=== PATIENT | female | born 1945 | race Caucasian/White ===

== ENCOUNTER 2016-09-14 10:30 | Outpatient (CLI) | payer MEDICARE, OTHER | END 2016-09-14 10:31 | disposition home or self-care (01) | DX: E11.65 Type 2 diabetes mellitus with hyperglycemia (principal) ==

== ENCOUNTER 2016-09-27 14:47 | Outpatient (CLI) | payer MEDICARE, OTHER | END 2016-09-27 14:48 | disposition home or self-care (01) | DX: M85.859 Other specified disorders of bone density and structure, unspecified thigh (principal); Z78.0 Asymptomatic menopausal state ==

== ENCOUNTER 2016-10-20 10:27 | Outpatient (CLI) | payer MEDICARE, OTHER ==
--- NOTE | 2016-10-20 12:59 | XRAY Report ---
MODIFIED BARIUM SWALLOW: 10/20/2016 CLINICAL INDICATION: Dysphagia. FINDINGS: Various consistencies of barium were prepared and administered in conjunction with speech pathology. There was trace penetration with mixed consistency, which produced a prompt cough reaction . Other consistencies were unremarkable. Please also refer to full report from speech pathology for f urther findings. IMPRESSION: TRACE PENETRATION WITH MIXED CONSISTENCY. FLUOROSCOPY TIME: 57 SECONDS; 1 SPOT IMAGE OBTAINED (CINE FLUOROSCOPY RECORDED). JOB #: [id number] EXT JOB #:[id number]
== END 2016-10-20 10:28 | disposition home or self-care (01) ==
LOC: DI 10:27
PROVIDERS: ATTEND Surgery
DX: R13.10 Dysphagia, unspecified (principal)
CPT/HCPCS: 74230; 92611; G8996; G8997; G8998

== ENCOUNTER 2016-10-29 09:51 | Outpatient (CLI) | payer MEDICARE, OTHER | END 2016-10-29 09:52 | disposition home or self-care (01) | DX: E11.9 Type 2 diabetes mellitus without complications (principal); Z78.9 Other specified health status ==

== ENCOUNTER 2017-01-05 10:30 | Outpatient (CLI) | payer MEDICARE, OTHER | END 2017-01-05 10:31 | DX: Z79.01 Long term (current) use of anticoagulants (principal); E11.9 Type 2 diabetes mellitus without complications; Z79.4 Long term (current) use of insulin; I10 Essential (primary) hypertension; E78.5 Hyperlipidemia, unspecified; E55.9 Vitamin D deficiency, unspecified ==

== ENCOUNTER 2017-06-21 13:05 | Outpatient (CLI) | payer MEDICARE, OTHER | END 2017-06-21 13:06 | disposition home or self-care (01) | LOC: SC 13:05 | PROVIDERS: ATTEND Nurse Practitioner Family | DX: G47.33 Obstructive sleep apnea (adult) (pediatric) (principal) | CPT/HCPCS: 99214; G0463; 99212 ==

== ENCOUNTER 2017-08-24 08:00 | Outpatient (CLI) | payer MEDICARE, OTHER ==
[2017-08-24 19:40] LABS: CALCIUM 8.8 mg/dL (8.5-10.3); CREATININE 1.2 mg/dL (0.4-1.0); POTASSIUM 4.4 mmol/L (3.5-5.0)
[2017-08-24 19:44] LABS: HEMOGLOBIN A1C 0.97 g/dL
== END 2017-08-24 08:01 | disposition home or self-care (01) ==
LOC: LAB.WCP 08:00
PROVIDERS: ATTEND Family Medicine
DX: E11.9 Type 2 diabetes mellitus without complications (principal)
CPT/HCPCS: 36415; 80048; 83036

== ENCOUNTER 2017-11-15 08:00 | Outpatient (CLI) | payer MEDICARE, OTHER ==
[2017-11-15 12:47] LABS: BASOPHILS # (AUTO) 0.1 10^3/uL (0.0-0.1); BASOPHILS % (AUTO) 0.9 %; EOSINOPHILS # (AUTO) 0.4 10^3/uL (0.0-0.7); EOSINOPHILS % (AUTO) 4.2 %; HGB - HEMOGLOBIN 14.5 g/dL (12.0-16.0); LYMPHOCYTES % (AUTO) 34.2 %; MEAN CORPUSCULAR HEMOGLOBIN 31.5 pg (27.0-31.0); MEAN CORPUSCULAR HGB CONC 33.3 g/dL (32.0-36.0); MEAN CORPUSCULAR VOLUME 94.7 fL (81.0-99.0); MEAN PLATELET VOLUME 9.8 fL (7.9-10.8); MONOCYTES # (AUTO) 0.7 10^3/uL (0.0-1.0); MONOCYTES % (AUTO) 8.1 %; NEUTROPHILS # (AUTO) 4.6 10^3/uL (1.5-6.6); NEUTROPHILS % (AUTO) 52.6 %; PLT - PLATELET COUNT 286 10^3/uL (130-450); RED BLOOD COUNT 4.59 10^6/uL (4.20-5.40); RED CELL DISTRIBUTION WIDTH 14.4 % (12.0-15.0); WHITE BLOOD COUNT 8.7 x10^3/uL (4.8-10.8)
[2017-11-15 13:40] LABS: HB2 TOTAL 15.6 g/dL; HEMOGLOBIN A1C 1.02 g/dL; HEMOGLOBIN A1C % 8.1 % (4.6-6.2)
[2017-11-15 14:04] LABS: ALBUMIN 3.9 g/dL (3.2-5.5); ALBUMIN/GLOBULIN RATIO 1.3 (1.0-2.2); ALKALINE PHOSPHATASE 53 IU/L (42-121); ALT ALANINE AMINOTRANSFERASE 44 IU/L (10-60); AST ASPARTATE AMINOTRANSFERASE 47 IU/L (10-42); BILIRUBIN,TOTAL 0.8 mg/dL (0.2-1.0); BUN - BLOOD UREA NITROGEN 20 mg/dL (6-20); CALCIUM 9.9 mg/dL (8.5-10.3); CARBON DIOXIDE - CO2 24 mmol/L (21-32); CHLORIDE 101 mmol/L (101-111); CHOL/HDL RATIO 2.9 (<4.4); CHOLESTEROL 146 mg/dL; CREATININE 1.4 mg/dL (0.4-1.0); GFR - MDRD 37 (>89); GLUCOSE 191 mg/dL (70-100); HDL CHOLESTEROL 51 mg/dL; LDL CHOLESTEROL,CALCULATED 63 mg/dL; LDL/HDL RATIO 1.2 (<4.4); SODIUM 135 mmol/L (135-145); TOTAL PROTEIN 6.8 g/dL (6.7-8.2); VLDL CHOLESTEROL 32 mg/dL
== END 2017-11-15 08:01 | disposition home or self-care (01) ==
LOC: LAB.WCP 08:00
PROVIDERS: ATTEND Family Medicine
DX: E11.9 Type 2 diabetes mellitus without complications (principal)
CPT/HCPCS: 36415; 80053; 80061; 83036; 83721; 84443; 85025

== ENCOUNTER 2018-01-10 14:59 | Outpatient (CLI) | payer MEDICARE, OTHER ==
--- NOTE | 2018-01-11 13:36 | Mammography Report ---
DIGITAL SCREENING MAMMOGRAM: 01/10/2018 CLINICAL INDICATION: A 72-year-old with family history of breast cancer for screening. COMPARISON: 04/2016, 03/2015, 03/2014, 03/2013, 03/2011, 12/2009. TECHNIQUE: Routine CC and MLO projections were obtained of the breasts. FINDINGS: Parenchymal tissue within the breasts is predominantly fatty replaced. There are no dominant masses, suspicious microcalcifications, or secondary signs of malignancy. In comparison to the previous studies, there are no significant changes. IMPRESSION: NO MAMMOGRAPHIC EVIDENCE OF MALIGNANCY. NO SIGNIFICANT INTERVAL CHANGES. RECOMMENDATION: Screening mammography is recommended annually. BIRADS CATEGORY 1 - NEGATIVE. STANDARD QUALIFYING STATEMENTS: 1. This examination was reviewed with the aid of Computed-Aided Detection (CAD). 2. A negative or benign imaging report should not delay biopsy if clinically suspicious findings are present. Consider surgical consultation if warranted. More than 5% of cancers are not identified by imaging. 3. Dense breasts may obscure an underlying neoplasm. TD: 01/11/2018 13:35
== END 2018-01-10 15:00 | disposition home or self-care (01) ==
LOC: DI 14:59
PROVIDERS: ATTEND Family Medicine
DX: Z12.31 Encounter for screening mammogram for malignant neoplasm of breast (principal); Z80.3 Family history of malignant neoplasm of breast
CPT/HCPCS: 77067

== ENCOUNTER 2018-02-15 11:19 | Outpatient (CLI) | payer MEDICARE, OTHER ==
[2018-02-15 19:15] LABS: BASOPHILS # (AUTO) 0.1 10^3/uL (0.0-0.1); EOSINOPHILS # (AUTO) 0.4 10^3/uL (0.0-0.7); EOSINOPHILS % (AUTO) 5.5 %; HGB - HEMOGLOBIN 12.9 g/dL (12.0-16.0); LYMPHOCYTES # (AUTO) 2.2 10^3/uL (1.5-3.5); LYMPHOCYTES % (AUTO) 29.9 %; MEAN CORPUSCULAR HEMOGLOBIN 30.9 pg (27.0-31.0); MEAN CORPUSCULAR HGB CONC 32.2 g/dL (32.0-36.0); MEAN CORPUSCULAR VOLUME 95.7 fL (81.0-99.0); MEAN PLATELET VOLUME 10.3 fL (7.9-10.8); MONOCYTES # (AUTO) 0.6 10^3/uL (0.0-1.0); MONOCYTES % (AUTO) 7.7 %; NEUTROPHILS # (AUTO) 4.1 10^3/uL (1.5-6.6); NEUTROPHILS % (AUTO) 54.9 %; PLT - PLATELET COUNT 222 10^3/uL (130-450); RED BLOOD COUNT 4.17 10^6/uL (4.20-5.40); RED CELL DISTRIBUTION WIDTH 14.7 % (12.0-15.0); WHITE BLOOD COUNT 7.4 x10^3/uL (4.8-10.8)
[2018-02-15 19:40] LABS: ALBUMIN 3.4 g/dL (3.2-5.5); ALBUMIN/GLOBULIN RATIO 1.2 (1.0-2.2); BILIRUBIN,TOTAL 1.7 mg/dL (0.2-1.0); CALCIUM 8.9 mg/dL (8.5-10.3); CREATININE 1.1 mg/dL (0.4-1.0); TOTAL PROTEIN 6.3 g/dL (6.7-8.2)
[2018-02-15 19:48] LABS: HEMOGLOBIN A1C 1.04 g/dL; HEMOGLOBIN A1C % 8.9 % (4.6-6.2)
== END 2018-02-15 11:20 | disposition home or self-care (01) ==
LOC: LAB.WCP 11:19
PROVIDERS: ATTEND Family Medicine
DX: E11.65 Type 2 diabetes mellitus with hyperglycemia (principal)
CPT/HCPCS: 36415; 80053; 83036; 85025

== ENCOUNTER 2018-03-17 08:13 | Outpatient (CLI) | payer MEDICARE, OTHER ==
--- NOTE | 2018-03-17 09:59 | Ultrasound Report ---
Procedure Date: 03/17/2018 Accession Number: [id number] / [id number] Procedure: US - Abdomen Complete CPT Code: FULL RESULT: EXAM: Abdomen Complete DATE: 03/17/2018 9:25 AM CLINICAL HISTORY: LIVER FUNCTION TESTS, ABNORMAL COMPARISON: CT 06/12/2012 TECHNIQUE: Real-time scanning was performed with static images obtained. FINDINGS: Liver: The liver demonstrates increased echogenicity, compatible with fatty infiltration. No focal lesion is appreciated. The liver measures 19 cm. Main portal vein flow: Hepatopetal. Gallbladder: Surgically absent. Biliary System: Common bile duct measures 6 mm. No intrahepatic or extrahepatic ductal dilatation. Pancreas: Visualized portion is unremarkable. Kidneys: Right: 10.5 cm longitudinally. Normal. No contour-deforming mass, stones, or hydronephrosis. Left: 9.7 cm longitudinally. Normal. No contour-deforming mass, stones, or hydronephrosis. Tiny cortical cyst. Spleen: 12.3 cm. Normal in size and echotexture. Aorta and Inferior Vena Cava: Unremarkable. IMPRESSION: Changes of cholecystectomy. Fatty infiltration of the liver. No evidence of biliary obstruction. RADIA
== END 2018-03-17 08:14 | disposition home or self-care (01) ==
LOC: DI 08:13
PROVIDERS: ATTEND Family Medicine
DX: K76.0 Fatty (change of) liver, not elsewhere classified (principal); Z90.49 Acquired absence of other specified parts of digestive tract
CPT/HCPCS: 76700

== ENCOUNTER 2018-06-28 13:14 | Outpatient (CLI) | payer MEDICARE, OTHER | END 2018-06-28 13:15 | disposition home or self-care (01) | LOC: SC 13:14 | PROVIDERS: ATTEND Nurse Practitioner Family | DX: G47.33 Obstructive sleep apnea (adult) (pediatric) (principal) | CPT/HCPCS: 99214; G0463; 99212 ==

== ENCOUNTER 2018-06-29 11:50 | Outpatient (CLI) | payer MEDICARE, OTHER ==
[2018-06-29 18:43] LABS: BASOPHILS # (AUTO) 0.1 10^3/uL (0.0-0.1); BASOPHILS % (AUTO) 1.1 %; EOSINOPHILS # (AUTO) 0.3 10^3/uL (0.0-0.7); EOSINOPHILS % (AUTO) 4.3 %; HGB - HEMOGLOBIN 14.7 g/dL (12.0-16.0); LYMPHOCYTES # (AUTO) 3.2 10^3/uL (1.5-3.5); LYMPHOCYTES % (AUTO) 40.6 %; MEAN CORPUSCULAR HEMOGLOBIN 30.7 pg (27.0-31.0); MEAN CORPUSCULAR HGB CONC 32.2 g/dL (32.0-36.0); MEAN CORPUSCULAR VOLUME 95.5 fL (81.0-99.0); MEAN PLATELET VOLUME 9.4 fL (7.9-10.8); MONOCYTES # (AUTO) 0.5 10^3/uL (0.0-1.0); MONOCYTES % (AUTO) 6.5 %; NEUTROPHILS # (AUTO) 3.8 10^3/uL (1.5-6.6); NEUTROPHILS % (AUTO) 47.5 %; PLT - PLATELET COUNT 297 10^3/uL (130-450); RED BLOOD COUNT 4.78 10^6/uL (4.20-5.40); RED CELL DISTRIBUTION WIDTH 15.4 % (12.0-15.0)
[2018-06-29 19:00] LABS: HB2 TOTAL 15.5 g/dL; HEMOGLOBIN A1C 1.01 g/dL; HEMOGLOBIN A1C % 8.1 % (4.6-6.2)
[2018-06-29 19:04] LABS: ALBUMIN 3.7 g/dL (3.2-5.5); ALBUMIN/GLOBULIN RATIO 1.4 (1.0-2.2); ALKALINE PHOSPHATASE 67 IU/L (42-121); ALT ALANINE AMINOTRANSFERASE 43 IU/L (10-60); AST ASPARTATE AMINOTRANSFERASE 53 IU/L (10-42); BILIRUBIN,TOTAL 1.3 mg/dL (0.2-1.0); BUN - BLOOD UREA NITROGEN 22 mg/dL (6-20); CALCIUM 9.3 mg/dL (8.5-10.3); CARBON DIOXIDE - CO2 24 mmol/L (21-32); CHLORIDE 99 mmol/L (101-111); CHOL/HDL RATIO 2.9 (<4.4); CHOLESTEROL 150 mg/dL; CREATININE 1.3 mg/dL (0.4-1.0); GFR - MDRD 40 (>89); GLUCOSE 134 mg/dL (70-100); HDL CHOLESTEROL 52 mg/dL; LDL CHOLESTEROL,CALCULATED 67 mg/dL; LDL/HDL RATIO 1.3 (<4.4); SODIUM 136 mmol/L (135-145); TOTAL PROTEIN 6.4 g/dL (6.7-8.2); VLDL CHOLESTEROL 31 mg/dL
== END 2018-06-29 11:51 | disposition home or self-care (01) ==
LOC: LAB.WCP 11:50
PROVIDERS: ATTEND Family Medicine
DX: E11.65 Type 2 diabetes mellitus with hyperglycemia (principal)
CPT/HCPCS: 36415; 80053; 80061; 83036; 83721; 84443; 85025

== ENCOUNTER 2018-09-28 08:00 | Outpatient (CLI) | payer MEDICARE, OTHER ==
[2018-09-28 19:14] LABS: CALCIUM 9.1 mg/dL (8.5-10.3); CREATININE 1.2 mg/dL (0.4-1.0)
[2018-09-28 19:26] LABS: HB2 TOTAL 16.4 g/dL; HEMOGLOBIN A1C 1.12 g/dL; HEMOGLOBIN A1C % 8.4 % (4.6-6.2)
== END 2018-09-28 23:59 | disposition home or self-care (01) ==
LOC: LAB.WCP 08:00
PROVIDERS: ATTEND Family Medicine
DX: E11.9 Type 2 diabetes mellitus without complications (principal)
CPT/HCPCS: 36415; 80048; 83036

== ENCOUNTER 2018-10-14 16:44 | Outpatient (CLI) | payer MEDICARE, OTHER ==
--- NOTE | 2018-10-16 01:28 | Ultrasound Report ---
Reason: POSTMENOPAUSAL BLEEDING,DIABETES MELLITUS,TYPE II, Procedure Date: 10/14/2018 Accession Number: [id number] / [id number] Procedure: US - Ankle Brachial Index CPT Code: FULL RESULT: EXAM: BILATERAL ANKLE/BRACHIAL INDEX EXAM DATE: 10/14/2018 06:00 PM. CLINICAL HISTORY: POSTMENOPAUSAL BLEEDING,DIABETES MELLITUS,TYPE II. Neuropathy. COMPARISON: None. TECHNIQUE: A blood pressure cuff and pulse volume recording Doppler ultrasound was used to evaluate the arterial pressures in the arms and ankle. No images were acquired. FINDINGS: Systolic pressures: Right brachial 132/79, right ankle 136/69. Right ankle brachial index is 1.03, normal. Left ankle brachial index is 1.0, normal. Systolic pressures: Left brachial 133/62, left ankle 133/64 Right posterior tibial artery peak systolic velocity 32.8 cm/s. Right dorsalis pedis artery peak systolic velocity is 21.5 cm/s. Left posterior tibial artery peak systolic velocity 27.7 cm/s. Left dorsalis pedis artery peak systolic velocity is 18.5 cm/s. IMPRESSION: 1. Right ankle/brachial index: 1.03, normal. 2. Left ankle/brachial index: 1, normal. ANKLE/BRACHIAL INDEX REFERENCE STANDARDS 1.0-1.4: Normal 0.90-0.99: Borderline < 0.9: Abnormal RADIA
--- NOTE | 2018-10-16 01:36 | Ultrasound Report ---
Reason: POSTMENOPAUSAL BLEEDING,DIABETES MELLITUS,TYPE II, Procedure Date: 10/14/2018 Accession Number: [id number] / [id number] Procedure: US - Pelvic w/Transvaginal CPT Code: FULL RESULT: EXAM: PELVIC ULTRASOUND EXAM DATE: 10/14/2018 05:26 PM. CLINICAL HISTORY: POSTMENOPAUSAL BLEEDING,DIABETES MELLITUS,TYPE II. Hysterectomy in 1988. Ovaries still present. COMPARISON: None. TECHNIQUE: Realtime transabdominal pelvic scan performed to identify the uterus and adnexa and as an overview of other pelvic structures, followed by transvaginal scan to provide greater detail of the uterus and adnexa, with static image documentation. FINDINGS: The uterus is surgically absent. Bilateral ovaries are not visualized due to bowel gas and probable ovarian atrophy. No abnormality seen. Free Fluid: None. IMPRESSION: The uterus is surgically absent. Bilateral ovaries are not visualized due to bowel gas and probable ovarian atrophy. No abnormality seen. RADIA
== END 2018-10-14 16:45 | disposition home or self-care (01) ==
LOC: DI 16:44
PROVIDERS: ATTEND Family Medicine
DX: N95.0 Postmenopausal bleeding (principal); E11.65 Type 2 diabetes mellitus with hyperglycemia; Z90.710 Acquired absence of both cervix and uterus
CPT/HCPCS: 76830; 76856; 93922

== ENCOUNTER 2018-10-19 08:00 | Outpatient (CLI) | payer MEDICARE, OTHER | END 2018-10-19 23:59 | disposition home or self-care (01) | LOC: LAB.R 08:00 | PROVIDERS: ATTEND Obstetrics & Gynecology | DX: B37.3 Candidiasis of vulva and vagina (principal) | CPT/HCPCS: 87480; 87510; 87660 ==

== ENCOUNTER 2019-01-01 11:09 | Outpatient (CLI) | payer MEDICARE, OTHER ==
[2019-01-01 18:54] LABS: ALBUMIN 3.5 g/dL (3.2-5.5); ALBUMIN/GLOBULIN RATIO 1.3 (1.0-2.2); BILIRUBIN,TOTAL 1.1 mg/dL (0.2-1.0); CALCIUM 9.1 mg/dL (8.5-10.3); CREATININE 1.3 mg/dL (0.4-1.0); TOTAL PROTEIN 6.3 g/dL (6.7-8.2)
[2019-01-01 19:17] LABS: HB2 TOTAL 15.6 g/dL; HEMOGLOBIN A1C 1.15 g/dL; HEMOGLOBIN A1C % 8.9 % (4.6-6.2)
== END 2019-01-01 11:10 | disposition home or self-care (01) ==
LOC: LAB.WCP 11:09
PROVIDERS: ATTEND Family Medicine
DX: E11.65 Type 2 diabetes mellitus with hyperglycemia (principal)
CPT/HCPCS: 36415; 80053; 83036

== ENCOUNTER 2019-01-19 15:45 | Outpatient (CLI) | payer MEDICARE, OTHER ==
--- NOTE | 2019-01-20 16:24 | XRAY Report ---
Reason: SHOULDER PAIN,RIGHT Procedure Date: 01/19/2019 Accession Number: [id number] / [id number] Procedure: WCP - Shoulder 2 View RT CPT Code: FULL RESULT: EXAM: RIGHT SHOULDER RADIOGRAPHY EXAM DATE: 01/19/2019 03:40 PM. CLINICAL HISTORY: SHOULDER Pain, right. COMPARISON: None. TECHNIQUE: 2 views. FINDINGS: Bones: Normal. No fracture or bone lesion. Joints: The glenohumeral and acromioclavicular joints are normally aligned. Mild acromioclavicular degenerative changes. Mild glenohumeral degenerative changes. Soft tissues: The visualized hemithorax is unremarkable. No soft tissue swelling. IMPRESSION: Mild degenerative changes in the right shoulder without acute abnormality seen. RADIA
== END 2019-01-19 15:46 | disposition home or self-care (01) ==
LOC: DI.WCP 15:45
PROVIDERS: ATTEND Family Medicine
DX: M19.011 Primary osteoarthritis, right shoulder (principal)

== ENCOUNTER 2019-01-31 11:05 | Outpatient (CLI) | payer MEDICARE, OTHER | END 2019-01-31 11:06 | disposition home or self-care (01) | LOC: LAB.WCP 11:05 | PROVIDERS: ATTEND Family Medicine | DX: B99.8 Other infectious disease (principal) | CPT/HCPCS: 87070; 87205 ==

== ENCOUNTER 2019-03-03 21:01 | Emergency (ER) | payer MEDICARE, OTHER ==
[2019-03-03] MEDS ORDERED: LIDOCAINE-EPINEPH-TETRACAINE 3 ML SYRINGE TOP STA (21:10)
--- NOTE | 2019-03-03 21:11 | ED Physician Documentation ---
PD HPI WOUND RECHECK - Stated complaint Stated Complaint: AB WOUND - Chief complaint Chief Complaint: Wound - Histroy obtained from History obtained from: Patient - History of Present Illness Location: Abdomen (She has some chronic abdominal wounds that are being treated in wound care. She had one that was cauterized in clinic on Tuesday, 3 days ago. Tonight it started bleeding. There is no pain. She is on Eliquis.) Review of Systems Constitutional: reports: Reviewed and negative Throat: reports: Reviewed and negative Cardiac: reports: Reviewed and negative PD PAST MEDICAL HISTORY - Past Medical History Cardiovascular: Hypertension, High cholesterol, Atrial fibrillation Respiratory: Pneumonia, Sleep apnea, CPAP use Endocrine/Autoimmune: Type 2 diabetes GI: GERD, Hiatal hernia, Chronic diarrhea, Pancreatitis : Incontinence, Frequency HEENT: Chronic sinusitis, Other Psych: Anxiety, Claustrophobia Musculoskeletal: Osteoarthritis, Gout Derm: None - Past Surgical History General: Cholecystectomy Ortho: Knee replacement, 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 HEENT: Cataracts - Present Medications Home Medications: Ambulatory Orders Medication Instructions Recorded Confirmed Aspirin [Sweet Grass Aspirin] 81 mg PO DAILY 05/03/14 04/16/15 Atorvastatin Calcium [Lipitor] 10 mg PO DAILY 05/03/14 04/16/15 Cetirizine HCl [Zyrtec] 10 mg PO DAILY 05/03/14 04/16/15 Colchicine [Colcrys] 0.6 tab PO TID PRN 05/03/14 04/16/15 Esomeprazole Magnesium [Nexium] 40 mg PO DAILY 05/03/14 04/16/15 RX: Allopurinol 300 mg PO DAILY 05/03/14 04/16/15 RX: Metoprolol Succinate [Toprol 50 mg PO DAILY 05/03/14 04/16/15 Xl] RX: Warfarin [Coumadin] 1 - 1.5 tab PO DAILY 05/03/14 04/16/15 Telmisartan [Micardis] 40 mg PO DAILY 05/03/14 04/16/15 RX: Ginkgo Biloba [place] Extract 60 mg ORAL DAILY 06/25/14 04/16/15 [Ginkgo] Insulin Lispro [Humalog] 10 units SUBQ TID 03/06/15 04/16/15 Menthol [Biofreeze] 1 applic TOP DAILY 03/06/15 04/16/15 Insulin Glargine,Hum.rec.anlog 50 units SQ DAILY 04/16/15 04/16/15 [Lantus] Thiamine HCl [Vitamin B-1] 150 mg PO BID 04/16/15 04/16/15 - Allergies Allergies/Adverse Reactions: Allergies Allergy/AdvReac Type Severity Reaction Status Date / Time erythromycin base Allergy Anaphylaxis Verified 03/03/19 21:10 [Erythromycin Base] hydrocodone bitartrate * Allergy Hives Verified 03/03/19 21:10 [From Vicodin] latex Allergy Itching Verified 03/03/19 21:10 penicillin G Allergy Hives Verified 03/03/19 21:10 propoxyphene HCl * Allergy Hives Verified 03/03/19 21:10 [From Darvon] - Social History Does the pt smoke?: No Smoking Status: Former smoker Does the pt drink ETOH?: No Does the pt have substance abuse?: No - Immunizations Immunizations are current?: Yes PD ED PE NORMAL - Vitals Vital signs reviewed: Yes - General General: Alert and oriented X 3, No acute distress - Abdomen Abdomen: Non tender, Other (There are multiple abdominal wall wounds, the one in question is pretty small, a little smaller than a dime, the bandages removed was saturated with blood probably 10 mL total. There was no active bleeding but there was clot at the base.) - Derm Derm: Normal color, Warm and dry - Neuro Neuro: Alert and oriented X 3, Normal speech Results - Vitals Vitals: Vital Signs - 24 hr 03/03/19 03/03/19 21:07 22:09 Temperature 36.5 C 36.2 C L Heart Rate 107 H 75 Respiratory 16 20 Rate Blood Pressure 154/79 H 141/70 H O2 Saturation 98 99 Oxygen O2 Source Room air Procedures - General procedure General procedure: After my initial evaluation some lidocaine/epinephrine/tetracaine gel was placed in the wound and then I went back to reassess it. Almost immediately upon reassessment clot dislodged and it was bleeding profusely, mostly from the left side, looks like from a abdominal wall vein. Attempts at silver nitrate cautery were unsuccessful initially because of the amount of blood welling up into the wound. Total blood loss during this time was minimal, may be 10 mL. Attempts at silver nitrate were abandoned in the lieu of packing the wound with Gelfoam and flushing it with tranexamic acid which did result in hemostasis. Subsequent to that while walking it started bleeding again. Spoke with surgeon, Dr Rubio by phone, recommends tight packing with surgicel which was done resulting in hemostasis. Departure - Departure Disposition: 01 Home, Self Care Clinical Impression: Bleeding from wound Condition: Good Record reviewed to determine appropriate education?: Yes Health Concerns: bleeding wound Plan of Treatment: After my initial evaluation some lidocaine/epinephrine/tetracaine gel was placed in the wound and then I went back to reassess it. Almost immediately upon reassessment clot dislodged and it was bleeding profusely, mostly from the left side, looks like from a abdominal wall vein. Attempts at silver nitrate cautery were unsuccessful initially because of the amount of blood welling up into the wound. Total blood loss during this time was minimal, may be 10 mL. Attempts at silver nitrate were abandoned in the lieu of packing the wound with Gelfoam and flushing it with tranexamic acid which did result in hemostasis. Care Goals: stop the bleed Assessment: as above Comments: Followup with your wound care physician on Tuesday as scheduled. Keep the packing in place until then; take these instructions with you with the following: After my initial evaluation some lidocaine/epinephrine/tetracaine gel was placed in the wound and then I went back to reassess it. Almost immediately upon reassessment clot dislodged and it was bleeding profusely, mostly from the left side, looks like from a abdominal wall vein. Attempts at silver nitrate cautery were unsuccessful initially because of the amount of blood welling up into the wound. Total blood loss during this time was minimal, may be 10 mL. Attempts at silver nitrate were abandoned in the lieu of packing the wound with Gelfoam and flushing it with tranexamic acid which did result in hemostasis. Discharge Date/Time: 03/03/19 23:25
[2019-03-03] MEDS ORDERED: LIDOCAINE 2%-EPI 1:100000 20 ML MDV ONE (21:49)
[2019-03-03] MEDS ORDERED: TRANEXAMIC ACID 1,000 MG/10 ML VIAL NAS STA (21:50)
[2019-03-03 22:09] VITALS: BP 141/70
== END 2019-03-03 23:25 | disposition home or self-care (01) ==
LOC: ED 21:01
DX: S31.109A Unspecified open wound of abdominal wall, unspecified quadrant without penetration into peritoneal cavity, initial encounter (principal); X58.XXXA Exposure to other specified factors, initial encounter; R58 Hemorrhage, not elsewhere classified; I10 Essential (primary) hypertension; I48.91 Unspecified atrial fibrillation; Z79.01 Long term (current) use of anticoagulants; Z79.82 Long term (current) use of aspirin; E11.9 Type 2 diabetes mellitus without complications; Z79.4 Long term (current) use of insulin; Z87.891 Personal history of nicotine dependence
CPT/HCPCS: 99283

== ENCOUNTER 2019-03-30 13:17 | Outpatient (CLI) | payer MEDICARE, OTHER ==
[2019-03-30 19:08] LABS: CALCIUM 9.3 mg/dL (8.5-10.3); CREATININE 1.3 mg/dL (0.4-1.0)
[2019-03-30 19:11] LABS: HB2 TOTAL 16.1 g/dL; HEMOGLOBIN A1C 1.37 g/dL; HEMOGLOBIN A1C % 9.9 % (4.6-6.2)
== END 2019-03-30 13:18 | disposition home or self-care (01) ==
LOC: LAB.WCP 13:17
PROVIDERS: ATTEND Family Medicine
DX: E11.9 Type 2 diabetes mellitus without complications (principal)
CPT/HCPCS: 36415; 80048; 83036

== ENCOUNTER 2019-06-26 08:00 | Outpatient (CLI) | payer MEDICARE, OTHER ==
[2019-06-26 18:58] LABS: BASOPHILS # (AUTO) 0.1 10^3/uL (0.0-0.1); BASOPHILS % (AUTO) 0.7 %; EOSINOPHILS # (AUTO) 0.4 10^3/uL (0.0-0.7); EOSINOPHILS % (AUTO) 4.7 %; HGB - HEMOGLOBIN 12.8 g/dL (12.0-16.0); LYMPHOCYTES # (AUTO) 2.3 10^3/uL (1.5-3.5); LYMPHOCYTES % (AUTO) 30.4 %; MEAN CORPUSCULAR HGB CONC 30.1 g/dL (32.0-36.0); MEAN CORPUSCULAR VOLUME 99.5 fL (81.0-99.0); MEAN PLATELET VOLUME 11.3 fL (7.9-10.8); MONOCYTES # (AUTO) 0.6 10^3/uL (0.0-1.0); MONOCYTES % (AUTO) 8.1 %; NEUTROPHILS # (AUTO) 4.2 10^3/uL (1.5-6.6); NEUTROPHILS % (AUTO) 55.8 %; PLT - PLATELET COUNT 235 10^3/uL (130-450); RED BLOOD COUNT 4.27 10^6/uL (4.20-5.40); RED CELL DISTRIBUTION WIDTH 14.9 % (12.0-15.0); WHITE BLOOD COUNT 7.4 x10^3/uL (4.8-10.8)
[2019-06-26 19:35] LABS: HB2 TOTAL 13.6 g/dL; HEMOGLOBIN A1C 0.9 g/dL; HEMOGLOBIN A1C % 8.2 % (4.6-6.2)
[2019-06-26 19:53] LABS: ALBUMIN 3.6 g/dL (3.2-5.5); ALBUMIN/GLOBULIN RATIO 1.2 (1.0-2.2); ALKALINE PHOSPHATASE 74 IU/L (42-121); ALT ALANINE AMINOTRANSFERASE 24 IU/L (10-60); AST ASPARTATE AMINOTRANSFERASE 29 IU/L (10-42); BILIRUBIN,TOTAL 1.2 mg/dL (0.2-1.0); BUN - BLOOD UREA NITROGEN 19 mg/dL (6-20); CALCIUM 9.2 mg/dL (8.5-10.3); CARBON DIOXIDE - CO2 30 mmol/L (21-32); CHLORIDE 102 mmol/L (101-111); CHOL/HDL RATIO 2.8 (<4.4); CHOLESTEROL 150 mg/dL; CREATININE 1.2 mg/dL (0.4-1.0); GFR - MDRD 44 (>89); GLUCOSE 188 mg/dL (70-100); HDL CHOLESTEROL 53 mg/dL; LDL CHOLESTEROL,CALCULATED 72 mg/dL; LDL/HDL RATIO 1.4 (<4.4); SODIUM 141 mmol/L (135-145); TOTAL PROTEIN 6.5 g/dL (6.7-8.2); VLDL CHOLESTEROL 25 mg/dL
== END 2019-06-26 23:59 | disposition home or self-care (01) ==
LOC: LAB.WCP 08:00
PROVIDERS: ATTEND Family Medicine
DX: E11.40 Type 2 diabetes mellitus with diabetic neuropathy, unspecified (principal); E11.65 Type 2 diabetes mellitus with hyperglycemia; E66.01 Morbid (severe) obesity due to excess calories; Z79.4 Long term (current) use of insulin; F32.9 Major depressive disorder, single episode, unspecified; I10 Essential (primary) hypertension
CPT/HCPCS: 36415; 80053; 80061; 83036; 83721; 84443; 85025

== ENCOUNTER 2019-07-11 13:12 | Outpatient (CLI) | payer MEDICARE, OTHER ==
[2019-07-11 14:12] VITALS: BP 104/64
--- NOTE | 2019-07-11 14:12 | SLEEP CARE CONSULTATION ---
Information from patient questionnaire entered by Kanika Venegas. I have reviewed and concur with the information entered by Kanika Venegas. This document represents the service I personally performed and the decisions made by me, Angelique Carlos, RN, MSN, [employer]. History of Present Illness Previous diagnosis: Severe, Obstructive Sleep Apnea-Hypopnea Syndrome AHI: 34.2 Reason for follow up: annual Equipment type: CPAP Equipment obtained from: [place] [employer] (having difficulty getting supplies in timely manner. Spoke to [place] and will try email ordering or transfer.) Mask style: Nasal (Dreamwear) Mask brand: Respironics Backup mask available: Yes Last cushion change: yesterday CPAP Compliance Data - Data Reviewed with Patient Average duration of nightly device use: 9.45 Compliance rate %: 99.4 (180 days) Current pressure setting (cmH2O): 12 Humidity settin Heated hose settin Average residual AHI: 4.1 Average large leak: 1 min 34 sec Subjective Missed days of use due to: reports: other (bad pain night and unable to sleep) Patient concerns: reports: mask discomfort (from frequent adjustment to keep on. ), air blowing in eyes (from mask dislodging 3-4 times during the night.), mask leak noise, nasal congestion (occasional and not interferring with use of CPAP), dry mouth, nose, throat (occasional nose dryness. ). denies: aerophagia, condensation in mask/hose, epistaxis Observed to snore while using device: No Current pressure setting perceived as: comfortable On therapy, patient: reports: sleeping better, awakening more refreshed, being more awake and alert during the day, more rested overall. denies: drowsiness while driving Initial Ventress Sleepiness Scale score: 10 Current Ventress Sleepiness Scale score: 8 Allergies and Home Medications Known drug allergies: Yes Home medication list reviewed: Yes Allergy and home medication list: Pantoprazole Sodium 40mg tab one daily Colchicine (Colcrys) 0.6mg tab one up to TID for gout attacks Toprol XL (Metoprolol Succinate) 50mg tab one daily Atorvastatin Calcium 10mg tab one daily Lantus Solostar 100 unit/ml SQ Solution Inject 54 units nightly Allopurinol 300mg tab one daily Micardis (Telmisartan) 40mg tab one daily Furosemide 20mg tab one on Mon, Wed and Fri Potassium Chloride ER (Klor-Con) 10meq tab one daily Zyrter Allergy (Ceterizine) 10mg tab one daily Ginko Biloba 60mg tab one daily Super B-Complex Tab one twice daily Eliquis 5mg tab one twice daily Bydureon Bcise 2 mg/0.85ml SQ Inject one pen weekly for diabetes Humolog twice a day as directed Qunol Tab one daily Vitamin D3 5000IU tab one daily Probiotic 10 one daily Trulicity 1 time weekly Review of Systems Review of systems same as previous: No (skin infection / lazer surgery of bilateral eyes) Physical Exam Blood Pressure: 104/64 Cuff size: wrist Heart Rate: 84 O2 Saturation: 98 Impression and Plan 1. Obstructive Sleep Apnea-Hypopnea Syndrome, severe , with good treatment compliance and good apnea control. On CPAP therapy, the patient has better sleep quality and is more rested overall. To prevent mask dislodging and disruption of sleep, I will order the new headgear adaptor for her mask. She is to contact me if any problem receiving. For oral dryness, if persists, she can increase the humidity as shown on sample device to 5. Rationale discussed for changing settings and Respironics directions to change were given. She has gained weight from Prednisone therapy and deferred weight today. She is working on weight loss. I commended her and explained increased weight increases apnea risk and if continued could increase pressure requirements. Also obesity affects her diabetes and overall health risks. Patient's apnea severity and rationale for treatment to reduce apnea, improve sleep quality and reduce cardiovascular and cerebrovascular events was reviewed. I also reviewed the benefit of consistent device use of CPAP for her hypertension, arrhythmia, diabetes, gastric reflex. * Continue CPAP pressure at 12 cmH2O * headgear adaptor * Adjust humidity * Notify me if snoring with mask or feeling that the pressure is too much or too little * Attempt to lose weight * Return for follow up in 1 year , or sooner if concerns arise I spent 100% of this 25 minute visit face to face with the patient with greater than 50% of this was spent time counseling the patient and coordination of care.
== END 2019-07-11 13:13 | disposition home or self-care (01) ==
LOC: SC 13:12
PROVIDERS: ATTEND Nurse Practitioner Family
DX: G47.33 Obstructive sleep apnea (adult) (pediatric) (principal)
CPT/HCPCS: 99213; G0463; 99212

== ENCOUNTER 2019-09-27 08:00 | Outpatient (CLI) | payer MEDICARE, OTHER ==
[2019-09-27 19:13] LABS: CALCIUM 9.2 mg/dL (8.5-10.3); CREATININE 1.2 mg/dL (0.4-1.0); HB2 TOTAL 14.2 g/dL; HEMOGLOBIN A1C % 8.6 % (4.6-6.2)
== END 2019-09-27 23:59 | disposition home or self-care (01) ==
LOC: LAB.WCP 08:00
PROVIDERS: ATTEND Family Medicine
DX: E11.65 Type 2 diabetes mellitus with hyperglycemia (principal)
CPT/HCPCS: 36415; 80048; 83036

== ENCOUNTER 2019-12-27 08:00 | Outpatient (CLI) | payer MEDICARE, OTHER ==
[2019-12-27 12:19] LABS: ALBUMIN 3.7 g/dL (3.2-5.5); ALBUMIN/GLOBULIN RATIO 1.2 (1.0-2.2); ALKALINE PHOSPHATASE 75 IU/L (42-121); ALT ALANINE AMINOTRANSFERASE 23 IU/L (10-60); AST ASPARTATE AMINOTRANSFERASE 30 IU/L (10-42); BUN - BLOOD UREA NITROGEN 25 mg/dL (6-20); CALCIUM 8.7 mg/dL (8.5-10.3); CARBON DIOXIDE - CO2 26 mmol/L (21-32); CHLORIDE 99 mmol/L (101-111); CHOL/HDL RATIO 2.8 (<4.4); CHOLESTEROL 161 mg/dL; CREATININE 1.4 mg/dL (0.4-1.0); GLUCOSE 228 mg/dL (70-100); HDL CHOLESTEROL 58 mg/dL; LDL CHOLESTEROL,CALCULATED 78 mg/dL; LDL/HDL RATIO 1.3 (<4.4); SODIUM 133 mmol/L (135-145); TOTAL PROTEIN 6.9 g/dL (6.7-8.2); VLDL CHOLESTEROL 25 mg/dL
[2019-12-27 13:08] LABS: HB2 TOTAL 13.8 g/dL; HEMOGLOBIN A1C 0.93 g/dL; HEMOGLOBIN A1C % 8.3 % (4.6-6.2)
== END 2019-12-27 23:59 | disposition home or self-care (01) ==
LOC: LAB.WCP 08:00
PROVIDERS: ATTEND Family Medicine
DX: E11.65 Type 2 diabetes mellitus with hyperglycemia (principal)
CPT/HCPCS: 36415; 80053; 80061; 83036; 83721

== ENCOUNTER 2020-02-25 11:43 | Outpatient (CLI) | payer MEDICARE, OTHER ==
[2020-02-25 18:46] LABS: CREATININE 1.2 mg/dL (0.4-1.0)
[2020-02-25 19:02] LABS: HB2 TOTAL 13.6 g/dL; HEMOGLOBIN A1C 0.92 g/dL; HEMOGLOBIN A1C % 8.3 % (4.6-6.2)
== END 2020-02-25 23:59 | disposition home or self-care (01) ==
LOC: LAB.WCP 11:43
PROVIDERS: ATTEND Nurse Practitioner Family
DX: E11.65 Type 2 diabetes mellitus with hyperglycemia (principal)
CPT/HCPCS: 36415; 80048; 83036

== ENCOUNTER 2020-05-21 08:00 | Outpatient (CLI) | payer MEDICARE, OTHER ==
[2020-05-21 18:32] LABS: CALCIUM 8.9 mg/dL (8.5-10.3); CREATININE 1.3 mg/dL (0.4-1.0)
[2020-05-21 20:20] LABS: HEMOGLOBIN A1c% 7.3 % (4.27-6.07)
== END 2020-05-21 23:59 | disposition home or self-care (01) ==
LOC: LAB.WCP 08:00
PROVIDERS: ATTEND Family Medicine
DX: E11.9 Type 2 diabetes mellitus without complications (principal)
CPT/HCPCS: 36415; 80048; 83036

== ENCOUNTER 2020-05-29 06:28 | Day surgery (SDC) | payer MEDICARE, OTHER ==
[2020-05-29] MEDS ORDERED: LACTATED RINGERS 1,000 ML IV ONE (06:58)
--- NOTE | 2020-05-29 07:08 | ANESTHESIA ---
Pre-Anesthesia VS, & Labs - Diagnosis hx of colon polyps - Procedure colonoscopy Vital Signs: Temp Pulse Resp BP Pulse Ox 36.2 C L 105 H 20 145/73 H 95 05/29/20 06:39 05/29/20 06:39 05/29/20 06:39 05/29/20 06:39 05/29/20 06:39 Height: 5 ft 1.5 in Weight (kg): 137.9 kg Body Mass Index: 56.5 BMI Classification: Morbidly Obese - NPO >8 hours - Is Patient ?: No - Lab Results Current Lab Results: Laboratory Tests 05/29/20 06:50: POC Whole Bld Glucose 183 H Home Medications and Allergies Home Medications: Ambulatory Orders Cholecalciferol (Vitamin D3) [Vitamin D3] 5,000 unit PO DAILY 05/26/20 Cyanocobalamin (Vitamin B-12) [Vitamin B-12] 5,000 mcg PO DAILY 05/26/20 Atorvastatin Calcium [Lipitor] 10 mg PO QPM 05/03/14 Colchicine [Colcrys] 0.6 tab PO TID PRN 05/03/14 Telmisartan [Micardis] 40 mg PO DAILY 05/03/14 allopurinoL [Allopurinol] 300 mg PO DAILY 05/03/[address] [place] Extract [Ginkgo] 60 mg ORAL DAILY 06/25/14 Insulin Lispro [Humalog] 5 - 16 units SUBQ TIDWM 03/06/15 Insulin Glargine,Hum.rec.anlog [Lantus] 50 units SQ DAILY 04/16/15 Apixaban [Eliquis] 5 mg PO BID 04/11/19 Dulaglutide [Trulicity] 1.5 mg SQ Q7D 04/11/19 Furosemide 20 mg PO Q2D 04/11/19 Gabapentin 300 mg PO TID 04/11/19 L.acid/L.casei/B.bif/B.sloane/Fos [Probiotic Blend Capsule] 1 each PO DAILY 04/11/19 Metoprolol Succinate [Toprol Xl] 50 mg PO DAILY 04/11/19 Pantoprazole Sodium 40 mg PO DAILY 04/11/19 Potassium Chloride [Klor-Con 10] 10 meq PO DAILY 04/11/19 Cholecalciferol (Vitamin D3) [Vitamin D3] 5,000 unit PO DAILY 05/26/20 Cyanocobalamin (Vitamin B-12) [Vitamin B-12] 5,000 mcg PO DAILY 05/26/20 Allergies/Adverse Reactions: Allergies Allergy/AdvReac Type Severity Reaction Status Date / Time erythromycin base Allergy Hives Verified 05/26/20 11:47 [Erythromycin Base] hydrocodone bitartrate * Allergy Hives Verified 03/03/19 21:10 [From Vicodin] penicillin G Allergy Anaphylaxis Verified 05/26/20 11:47 propoxyphene HCl * Allergy Hives Verified 03/03/19 21:10 [From Darvon] latex AdvReac Itching Verified 05/26/20 11:47 tape Allergy Rash Uncoded 05/26/20 11:47 Anes History & Medical History - Anesthetic History Anesthesia Complications: reports: No previous complications Family history of Anesthesia Complications: Denies Family history of Malignant Hyperthermia: Denies - Medical History Cardiovascular: reports: Hypertension, High cholesterol, Atrial fibrillation Pulmonary: reports: Pneumonia, Sleep apnea, CPAP use Gastrointestinal: reports: GERD, Hiatal hernia, Chronic diarrhea, Pancreatitis Urinary: reports: Frequency Neuro: reports: Peripheral neuropathy Musculoskeletal: reports: Osteoarthritis, Gout Endocrine/Autoimmune: reports: Type 2 diabetes Blood Disorders: reports: Anemia Skin: reports: Rosacea Smoking Status: Former smoker - Surgical History General: Cholecystectomy, Colonoscopy, EGD Eyes Ears Nose Throat (EENT): Cataracts Gynecologic: section Orthopedic: Knee replacement, Other Results - EKG Results EKG Comparison: Reviewed EKG Exam General: Alert, Oriented x3, Cooperative, No acute distress Dental: WNL Mouth Openin Fingerbreadth Neck Mobility: Normal Mallampati classification: II Respiratory: Lungs clear, Normal breath sounds, No respiratory distress, No accessory muscle use Cardiovascular: Regular rate, Normal S1, Normal S2, No murmurs Plan Anesthesia Type: MAC Consent for Procedure(s) Verified and Reviewed: Yes Code Status: Attempt Resuscitation ASA classification: 3-Severe systemic disease Is this case an emergency?: No
[2020-05-29] MEDS ORDERED: METOCLOPRAMIDE 10 MG/2 ML VIAL IVP PRN (07:09)
[2020-05-29] MEDS ORDERED: MORPHINE 2 MG/ML CARPUJECT IVP PRN (07:09)
[2020-05-29] MEDS ORDERED: ONDANSETRON 4 MG/2 ML VIAL IVP PRN (07:09)
[2020-05-29] MEDS ORDERED: NALOXONE 0.4 MG/ML VIAL IVP PRN (07:09)
[2020-05-29] MEDS ORDERED: ATROPINE ABBOJECT 1 MG/10 ML SYRINGE IVP PRN (07:09)
[2020-05-29] MEDS ORDERED: HYDROmorphone 0.5 MG/0.5 ML SYRINGE IVP PRN (07:09)
[2020-05-29] MEDS ORDERED: ePHEDrine 50 MG/ML VIAL IVP PRN (07:09)
[2020-05-29] MEDS ORDERED: fentaNYL 100 MCG/2 ML VIAL IVP PRN (07:09)
[2020-05-29] MEDS ORDERED: LACTATED RINGERS 1,000 ML IV SCH (08:00)
[2020-05-29] MEDS ORDERED: LACTATED RINGERS 200 ML IV ONE (08:58)
--- NOTE | 2020-05-29 09:05 | ANESTHESIA POST OP EVALUATION ---
Anesthesia Post Eval - Post Anesthesia Eval Vitals: Last Vital Signs Temp 36.2 C L 05/29/20 06:39 Pulse 105 H 05/29/20 06:39 Resp 20 05/29/20 06:39 BP 145/73 H 05/29/20 06:39 Pulse Ox 95 05/29/20 06:39 CV Function Including HR & BP: positive: Stable Pain Control: positive: Satisfactory Nausea & Vomiting: positive: Negative Mental Status: positive: Baseline Respiratory Status: Airway Patent Hydration Status: Satisfactory Anesthesia Complications: positive: None
[2020-05-29 09:18] VITALS: BP 112/59
== END 2020-05-29 06:29 | disposition home or self-care (01) ==
LOC: SDS 06:28
PROVIDERS: ATTEND Surgery
PROC: 0DBN8ZZ Excision of Sigmoid Colon, Via Natural or Artificial Opening Endoscopic (ICD-10-PCS; 2020-05-29)
PROC: 0DBM8ZX Excision of Descending Colon, Via Natural or Artificial Opening Endoscopic, Diagnostic (ICD-10-PCS; principal; 2020-05-29 07:30)
DX: Z12.11 Encounter for screening for malignant neoplasm of colon (principal); D12.5 Benign neoplasm of sigmoid colon; K63.9 Disease of intestine, unspecified; K57.30 Diverticulosis of large intestine without perforation or abscess without bleeding; G47.30 Sleep apnea, unspecified; E11.42 Type 2 diabetes mellitus with diabetic polyneuropathy; Z79.4 Long term (current) use of insulin; Z87.891 Personal history of nicotine dependence; E66.01 Morbid (severe) obesity due to excess calories; Z68.43 Body mass index [BMI] 50.0-59.9, adult; I10 Essential (primary) hypertension; I48.91 Unspecified atrial fibrillation
CPT/HCPCS: 45380; J7120

== ENCOUNTER 2020-06-05 10:54 | Outpatient (CLI) | payer MEDICARE, OTHER ==
--- NOTE | 2020-06-06 12:03 | Mammography Report ---
BILATERAL DIGITAL SCREENING MAMMOGRAM 3D/2D: 06/05/2020 CLINICAL: Family history of breast cancer. Routine screening. Comparison is made to exams dated: 01/10/2018 mammogram, 04/28/2016 mammogram, 03/31/2015 mammogram, 03/14 mammogram, 03/29/2013 mammogram, and 03/22/2011 mammogram - [facility]. The t issue of both breasts is predominantly fatty. There are benign calcifications in both breasts. No significant masses, calcifications, or other findings are seen in either breast. There has been no significant interval change. IMPRESSION: BENIGN There is no mammographic evidence of malignancy. A 1 year screening mammogram is recommended. This exam was interpreted at Station ID: [id number]. NOTE: For mammograms, a report in lay terms will be sent to the patient. Approximately 15% of breast malignancies will not be visualized mammographically. In the management of a palpable breast mass, a negative mammogram must not discourage biopsy of a clinically suspicious lesion. Electronically Signed By: Joey Mahmood M.D. [email or web address]:06/05/2020 12:25:00 ACR BI-RADS Category 2: Benign Finding(s) 3342F PARENCHYMAL PATTERN: (F) - The breast(s) demonstrate(s) diffuse fatty replacement. BI-RADS CATEGORY: (2) - 2 RECOMMENDATION: (ANNUAL) - Recommend routine annual screening mammography. [id number] 1 year screening LATERALITY: (B)
== END 2020-06-05 10:55 | disposition home or self-care (01) ==
LOC: DI.N 10:54
DX: Z12.31 Encounter for screening mammogram for malignant neoplasm of breast (principal); Z80.3 Family history of malignant neoplasm of breast
CPT/HCPCS: 77063; 77067

== ENCOUNTER 2020-07-10 13:36 | Outpatient (CLI) | payer MEDICARE, OTHER ==
--- NOTE | 2020-07-10 09:15 | SLEEP CARE CONSULTATION ---
Information from patient questionnaire entered by Jenny Johnson. I have reviewed and concur with the information entered by Jenny Johnson. This document represents the service I personally performed and the decisions made by me, Liz Timmons ARNP. History of Present Illness Service Date and Time: 07/10/2020 0900 Previous diagnosis: Severe, Obstructive Sleep Apnea-Hypopnea Syndrome AHI: 34.2 Reason for follow up: annual (last seen 2018) Equipment type: CPAP Equipment obtained from: [employer] (getting supplies as needed) Mask style: Nasal Backup mask available: Yes (old mask) Last cushion change: 2 weeks ago Prior sleep studies: Yes Year and Where: 09/2009 [facility]; 2004 location unknown Type of Sleep Study: Polysomnography HPI additional information: LIAM WALDRON was diagnosed to have severe, AHI 34.2, obstructive sleep apnea-hypopnea syndrome and returns via Telehealth video today with spouse for CPAP therapy annual follow-up. CPAP Compliance Data - Data Reviewed with Patient Average duration of nightly device use: 9 hours 21 minutes Compliance rate %: 100 Current pressure setting (cmH2O): 12 Humidity settin Average residual AHI: 6.5 Central apnea: 0.1 Obstructive apnea: 5.8 Average large leak: 52 seconds Subjective Patient concerns: reports: air blowing in eyes (reduces with adjusting mask), mask leak noise (reduces with adjusting mask), dry mouth, nose, throat (dry nose). denies: aerophagia, mask discomfort, condensation in mask/hose, nasal congestion, epistaxis, other Observed to snore while using device: No Current pressure setting perceived as: comfortable On therapy, patient: reports: sleeping better, awakening more refreshed, being more awake and alert during the day, more rested overall. denies: drowsiness while driving (doesn't drive often) Initial [place] Sleepiness Scale score: 10 Current [place] Sleepiness Scale score: 6 Allergies and Home Medications Drug allergies reviewed: Yes (as listed) Home medication list reviewed: Yes (no changes) Review of Systems Review of systems same as previous: Yes (A1c reduced 7.3) Weight gain over past 5 years: 30 pounds over the last year Physical Exam Vital signs obtained and entered by: Telehealth visit, no vitals obtained Height: 5 ft 1.5 in Impression and Plan 1. Obstructive Sleep Apnea-Hypopnea Syndrome, severe, with excellent treatment compliance and fair apnea control with an elevated residual AHI of 6.5. On CPAP therapy, the patient has better sleep quality and is more rested overall. Nasal dryness can be reduced with increasing the CPAP humidity as shown on sample device and the heated hose can be increased if condensation. Patient advised to try some vaseline in nostrils to moisten lining and reduce dryness. The patients CPAP is over 5 years old and of reasonable use. In addition, it has a knob that is broken off. Thus, the CPAP will be updated. The new CPAPs also have a better humidity system which could assist control of patients dryness symptoms. A DWO prescription will be made. Compliance guidelines for new device and follow up discussed. Patient's apnea severity and rationale for treatment to reduce apnea, improve sleep quality and reduce cardiovascular and cerebrovascular events was reviewed. I also reviewed the benefit of consistent device use of CPAP for her hypertension, arrhythmia, diabetes, and gastric reflux. 2. Obesity, unspecified. Patient has gained 30 pounds of weight over the last year. Patients BMI is 56.5 as of last visit. Obesity increases the risk of apnea, CPAP pressure requirements and overall health risks especially cardiovascular and diabetes. Thus patient is advised to lose weight. Weight loss can be done with reducing portion size, reducing refined foods and balancing content with vegetables, fruit and protein. The patient's CPAP pressure was changed to 13-14 cmH2O to reduce residual AHI. Symptoms to report for additional pressure adjustment discussed. * Change autoCPAP pressure to 13-14 cmH2O * Notify me if snoring with mask or feeling that the pressure is too much or too little * Update CPAP machine * Attempt to lose weight * Call this office if any problems using CPAP * Return for follow up in 1-2 months, or sooner if concerns arise Counseling Topics: Spare mask, Weight loss health impact Visit Type: Telehealth Video Video Type: Doximity Patient Location: Home Location of Provider: Home Patient agrees and consents to this telehealth visit type: Yes Patient agrees to have their insurance billed: Yes Time Spent with Patient (minutes): 18 Provider Statement: I spent 100% of the Telehealth Video Call with the patient with greater than 50% spent counseling the patient and coordination of care.
== END 2020-07-10 13:37 | disposition home or self-care (01) ==
LOC: SC 13:36
PROVIDERS: ATTEND Nurse Practitioner Family
DX: G47.33 Obstructive sleep apnea (adult) (pediatric) (principal); E66.9 Obesity, unspecified; Z68.43 Body mass index [BMI] 50.0-59.9, adult

== ENCOUNTER 2020-08-21 08:00 | Outpatient (CLI) | payer MEDICARE, OTHER ==
[2020-08-21 18:14] LABS: ALBUMIN 3.8 g/dL (3.2-5.5); ALBUMIN/GLOBULIN RATIO 1.1 (1.0-2.2); BILIRUBIN,TOTAL 1.2 mg/dL (0.2-1.0); CALCIUM 9.5 mg/dL (8.5-10.3); CREATININE 1.2 mg/dL (0.4-1.0); TOTAL PROTEIN 7.4 g/dL (6.7-8.2)
[2020-08-21 20:21] LABS: HEMOGLOBIN A1c% 7.5 % (4.27-6.07)
== END 2020-08-21 23:59 | disposition home or self-care (01) ==
LOC: LAB.WCP 08:00
PROVIDERS: ATTEND Family Medicine
DX: E11.9 Type 2 diabetes mellitus without complications (principal)
CPT/HCPCS: 36415; 80053; 83036

== ENCOUNTER 2020-11-18 09:46 | Outpatient (CLI) | payer MEDICARE, OTHER ==
--- NOTE | 2020-11-18 10:32 | SLEEP CARE CONSULTATION ---
Information from patient questionnaire entered by Kanika Venegas. I have reviewed and concur with the information entered by Kanika Venegas. This document represents the service I personally performed and the decisions made by , Liz Timmons ARNP. History of Present Illness Service Date and Time: 11/18/2020 0946 Previous diagnosis: Severe, Obstructive Sleep Apnea-Hypopnea Syndrome AHI: 34.2 (in 2009) Reason for follow up: first compliance after device update Equipment type: CPAP Equipment obtained from: [employer] (getting supplies as needed) Mask style: Nasal (cushion, she has to adjust it often) Backup mask available: Yes (old mask) Last cushion change: Just over a week ago Prior sleep studies: Yes Year and Where: 2009 - [facility] Sleep Type of Sleep Study: Polysomnography HPI additional information: LIAM WALDRON was diagnosed to have severe, AHI 34.2, obstructive sleep apnea-hypopnea syndrome and returned today with spouse for CPAP therapy first compliance after updating device follow-up. CPAP Compliance Data - Data Reviewed with Patient Average duration of nightly device use: 9 hr 20 min Compliance rate %: 100 Current pressure setting (cmH2O): 13-14 Humidity settin Heated hose settin Average residual AHI: 5.0 Average large leak: 10 sec Subjective Patient concerns: reports: aerophagia (not uncomfortable, just a little), air blowing in eyes (at times), mask leak noise, other (snore while using device) Observed to snore while using device: Yes (occasionally) Current pressure setting perceived as: comfortable On therapy, patient: reports: sleeping better, awakening more refreshed, being more awake and alert during the day, more rested overall. denies: drowsiness while driving Initial [place] Sleepiness Scale score: 10 (in 2008) Current [place] Sleepiness Scale score: 8 Allergies and Home Medications Drug allergies reviewed: Yes (see list in chart) Home medication list reviewed: Yes Allergy and home medication list: Allopurinol 300 mg Aller Clear 10 mg Atorvastatin 10 mg Eliquis 5 mg Gabapentin 300 mg Humalog Potassium 10 meq Lantus 50 units daily Micardis 40 mg Pantoprazole 40 mg Toprol XL 50 mg Trulicity 1.5 mg G[place]ko [place] with vinpocetine 60 mg Probiotic 10 mg Vitamin D3 Vitamin B12 Colcyrs 0.6 mg for gout Oscimin SI 0.125 mg prn Furosemide 20 mg Tue/Tue and Tuesday Review of Systems Review of systems same as previous: Yes (no changes) Physical Exam Heart Rate: 90 O2 Saturation: 99 Height: 5 ft 1.5 in Weight: 308 lb Body Mass Index: 57.2 BMI Classification: Morbidly Obese Impression and Plan 1. Obstructive Sleep Apnea-Hypopnea Syndrome, severe, with excellent treatment compliance and fair apnea control. On CPAP therapy, the patient has better sleep quality and is more rested overall. She has some mask discomfort and air leaks with current mask that improve with adjustment of the mask. She changes her mask every 2 weeks to reduce air leaking and discomfort as well. She states she gets a little air in her stomach causing some flatus but states it is not uncomfort able. She also occasionally snores when using the machine, according to her . I do not want to adjust her pressure up because this could cause more aerophagia and it is not every night. She was encouraged to let me know if the snoring worsens or she has more aerophagia that becomes uncomfortable for her. She voiced understanding and agreement with plan. Patient's apnea severity and rationale for treatment to reduce apnea, improve sleep quality and reduce cardiovascular and cerebrovascular events was reviewed. I also reviewed the benefit of consistent device use of CPAP for hypertension, arrhythmia, diabetes, and gastric reflux. * Continue auto CPAP pressure at 13-14 cmH2O * Notify me if snoring with mask or feeling that the pressure is too much or too little * Attempt to lose weight * Call this office if any problems using CPAP * Return for follow up in 1 year, or sooner if concerns arise Counseling Topics: Spare mask, Weight loss health impact Visit Type: In Office Time Spent with Patient (minutes): 14 Provider Statement: I spent 100% of the Face to Face Visit with the patient with greater than 50% spent counseling the patient and coordination of care.
== END 2020-11-18 09:47 | disposition home or self-care (01) ==
LOC: SC 09:46
PROVIDERS: ATTEND Nurse Practitioner Family
DX: G47.33 Obstructive sleep apnea (adult) (pediatric) (principal); E66.01 Morbid (severe) obesity due to excess calories; Z68.43 Body mass index [BMI] 50.0-59.9, adult
CPT/HCPCS: 99212; G0463

== ENCOUNTER 2020-11-20 08:00 | Outpatient (CLI) | payer MEDICARE, OTHER ==
[2020-11-20 18:21] LABS: BASOPHILS # (AUTO) 0.1 10^3/uL (0.0-0.1); BASOPHILS % (AUTO) 0.9 %; EOSINOPHILS # (AUTO) 0.4 10^3/uL (0.0-0.7); EOSINOPHILS % (AUTO) 4.8 %; HCT - HEMATOCRIT 43.1 % (37.0-47.0); HGB - HEMOGLOBIN 13.3 g/dL (12.0-16.0); LYMPHOCYTES # (AUTO) 2.8 10^3/uL (1.5-3.5); LYMPHOCYTES % (AUTO) 32.2 %; MEAN CORPUSCULAR HEMOGLOBIN 28.9 pg (27.0-31.0); MEAN CORPUSCULAR HGB CONC 30.9 g/dL (32.0-36.0); MEAN CORPUSCULAR VOLUME 93.7 fL (81.0-99.0); MEAN PLATELET VOLUME 11.4 fL (7.9-10.8); MONOCYTES # (AUTO) 0.5 10^3/uL (0.0-1.0); MONOCYTES % (AUTO) 6.1 %; NEUTROPHILS # (AUTO) 4.9 10^3/uL (1.5-6.6); NEUTROPHILS % (AUTO) 55.8 %; PLT - PLATELET COUNT 293 10^3/uL (130-450); RED CELL DISTRIBUTION WIDTH 15.6 % (12.0-15.0); WHITE BLOOD COUNT 8.7 x10^3/uL (4.8-10.8)
[2020-11-20 18:32] LABS: ALBUMIN 3.7 g/dL (3.2-5.5); ALBUMIN/GLOBULIN RATIO 1.1 (1.0-2.2); ALKALINE PHOSPHATASE 81 IU/L (42-121); ALT ALANINE AMINOTRANSFERASE 30 IU/L (10-60); AST ASPARTATE AMINOTRANSFERASE 35 IU/L (10-42); BILIRUBIN,TOTAL 0.9 mg/dL (0.2-1.0); BUN - BLOOD UREA NITROGEN 36 mg/dL (6-20); CALCIUM 9.2 mg/dL (8.5-10.3); CARBON DIOXIDE - CO2 25 mmol/L (21-32); CHLORIDE 99 mmol/L (101-111); CHOL/HDL RATIO 2.8 (<4.4); CHOLESTEROL 155 mg/dL; CREATININE 1.4 mg/dL (0.4-1.0); GFR - MDRD 37 (>89); GLUCOSE 171 mg/dL (70-100); HDL CHOLESTEROL 56 mg/dL; LDL CHOLESTEROL,CALCULATED 76 mg/dL; LDL/HDL RATIO 1.4 (<4.4); POTASSIUM 4.6 mmol/L (3.5-5.0); SODIUM 135 mmol/L (135-145); TRIGLYCERIDES 117 mg/dL; VLDL CHOLESTEROL 23 mg/dL
[2020-11-20 18:35] LABS: CREATININE,URINE 206.6 mg/dL; MICROALBUM/CREATININE RATIO,UR 2.9 ug/mg (<30.0); MICROALBUMIN,URINE 0.6 mg/dL (0-300.0)
[2020-11-20 18:44] LABS: THYROID STIMULATING HORMONE 4.37 uIU/mL (0.34-5.60)
[2020-11-20 20:59] LABS: ESTIMATED AVERAGE GLUCOSE 169 mg/dL (70-100); HEMOGLOBIN A1c% 7.5 % (4.27-6.07)
== END 2020-11-20 23:59 | disposition home or self-care (01) ==
LOC: LAB.WCP 08:00
PROVIDERS: ATTEND Family Medicine
DX: E11.9 Type 2 diabetes mellitus without complications (principal)
CPT/HCPCS: 36415; 80053; 80061; 82043; 82570; 83036; 83721; 84443; 85025

== ENCOUNTER 2021-02-20 13:20 | Outpatient (CLI) | payer MEDICARE, OTHER ==
[2021-02-20 17:51] LABS: BASOPHILS # (AUTO) 0.1 10^3/uL (0.0-0.1); BASOPHILS % (AUTO) 0.9 %; EOSINOPHILS # (AUTO) 0.2 10^3/uL (0.0-0.7); EOSINOPHILS % (AUTO) 2.4 %; HCT - HEMATOCRIT 39.2 % (37.0-47.0); HGB - HEMOGLOBIN 11.9 g/dL (12.0-16.0); LYMPHOCYTES # (AUTO) 1.6 10^3/uL (1.5-3.5); MEAN CORPUSCULAR HEMOGLOBIN 28.5 pg (27.0-31.0); MEAN CORPUSCULAR HGB CONC 30.4 g/dL (32.0-36.0); MEAN CORPUSCULAR VOLUME 93.8 fL (81.0-99.0); MEAN PLATELET VOLUME 11.2 fL (7.9-10.8); MONOCYTES # (AUTO) 0.7 10^3/uL (0.0-1.0); MONOCYTES % (AUTO) 9.2 %; NEUTROPHILS # (AUTO) 4.9 10^3/uL (1.5-6.6); NEUTROPHILS % (AUTO) 66.1 %; PLT - PLATELET COUNT 239 10^3/uL (130-450); RED BLOOD COUNT 4.18 10^6/uL (4.20-5.40); RED CELL DISTRIBUTION WIDTH 16.4 % (12.0-15.0); WHITE BLOOD COUNT 7.5 x10^3/uL (4.8-10.8)
[2021-02-20 18:06] LABS: ALBUMIN 3.8 g/dL (3.2-5.5); ALBUMIN/GLOBULIN RATIO 1.2 (1.0-2.2); BILIRUBIN,TOTAL 0.9 mg/dL (0.2-1.0); CALCIUM 9.6 mg/dL (8.5-10.3); CREATININE 1.2 mg/dL (0.4-1.0); POTASSIUM 4.8 mmol/L (3.5-5.0); TOTAL PROTEIN 7.1 g/dL (6.7-8.2); URIC ACID 4.9 mg/dL (2.6-7.2)
[2021-02-20 20:17] LABS: ESTIMATED AVERAGE GLUCOSE 166 mg/dL (70-100); HEMOGLOBIN A1c% 7.4 % (4.27-6.07)
== END 2021-02-20 23:59 | disposition home or self-care (01) ==
LOC: LAB.WCP 13:20
PROVIDERS: ATTEND Family Medicine
DX: E11.9 Type 2 diabetes mellitus without complications (principal)
CPT/HCPCS: 36415; 80053; 83036; 84550; 85025

== ENCOUNTER 2021-07-21 10:54 | Outpatient (CLI) | payer MEDICARE, OTHER ==
[2021-07-21 17:50] LABS: BASOPHILS # (AUTO) 0.1 10^3/uL (0.0-0.1); BASOPHILS % (AUTO) 0.9 %; EOSINOPHILS # (AUTO) 0.2 10^3/uL (0.0-0.7); EOSINOPHILS % (AUTO) 2.9 %; HCT - HEMATOCRIT 38.4 % (37.0-47.0); HGB - HEMOGLOBIN 11.5 g/dL (12.0-16.0); LYMPHOCYTES # (AUTO) 2.1 10^3/uL (1.5-3.5); LYMPHOCYTES % (AUTO) 27.5 %; MEAN CORPUSCULAR HGB CONC 29.9 g/dL (32.0-36.0); MEAN CORPUSCULAR VOLUME 93.4 fL (81.0-99.0); MONOCYTES # (AUTO) 0.6 10^3/uL (0.0-1.0); MONOCYTES % (AUTO) 7.7 %; NEUTROPHILS # (AUTO) 4.7 10^3/uL (1.5-6.6); NEUTROPHILS % (AUTO) 60.7 %; PLT - PLATELET COUNT 241 10^3/uL (130-450); RED BLOOD COUNT 4.11 10^6/uL (4.20-5.40); RED CELL DISTRIBUTION WIDTH 17.2 % (12.0-15.0); WHITE BLOOD COUNT 7.7 x10^3/uL (4.8-10.8)
[2021-07-21 18:09] LABS: ALBUMIN 3.6 g/dL (3.2-5.5); ALBUMIN/GLOBULIN RATIO 1.2 (1.0-2.2); ALKALINE PHOSPHATASE 79 IU/L (42-121); ALT ALANINE AMINOTRANSFERASE 16 IU/L (10-60); AST ASPARTATE AMINOTRANSFERASE 24 IU/L (10-42); BILIRUBIN,TOTAL 1.3 mg/dL (0.2-1.0); BUN - BLOOD UREA NITROGEN 20 mg/dL (6-20); CALCIUM 9.4 mg/dL (8.5-10.3); CARBON DIOXIDE - CO2 27 mmol/L (21-32); CHLORIDE 102 mmol/L (101-111); CHOL/HDL RATIO 2.6 (<4.4); CHOLESTEROL 139 mg/dL; CREATININE 1.3 mg/dL (0.4-1.0); GFR - MDRD 40 (>89); GLUCOSE 146 mg/dL (70-100); HDL CHOLESTEROL 54 mg/dL; LDL CHOLESTEROL,CALCULATED 66 mg/dL; LDL/HDL RATIO 1.2 (<4.4); POTASSIUM 4.7 mmol/L (3.5-5.0); SODIUM 137 mmol/L (135-145); TOTAL PROTEIN 6.7 g/dL (6.7-8.2); TRIGLYCERIDES 97 mg/dL; VLDL CHOLESTEROL 19 mg/dL
[2021-07-21 20:35] LABS: ESTIMATED AVERAGE GLUCOSE 192 mg/dL (70-100); HEMOGLOBIN A1c% 8.3 % (4.27-6.07)
== END 2021-07-21 23:59 | disposition home or self-care (01) ==
LOC: LAB.WCP 10:54
PROVIDERS: ATTEND Family Medicine
DX: E11.9 Type 2 diabetes mellitus without complications (principal)
CPT/HCPCS: 36415; 80053; 80061; 82043; 82570; 83036; 83721; 85025

== ENCOUNTER 2021-07-24 08:00 | Outpatient (CLI) | payer MEDICARE, OTHER ==
[2021-07-24 18:41] LABS: MICROALBUM/CREATININE RATIO,UR 7.6 ug/mg (<30.0); MICROALBUMIN,URINE 1.1 mg/dL (0-300.0)
== END 2021-07-24 23:59 | disposition home or self-care (01) ==
LOC: LAB.WCP 08:00
PROVIDERS: ATTEND Family Medicine
DX: E11.9 Type 2 diabetes mellitus without complications (principal)
CPT/HCPCS: 82043; 82570

== ENCOUNTER 2021-09-30 14:07 | Outpatient (CLI) | payer MEDICARE, OTHER ==
--- NOTE | 2021-09-30 14:40 | SLEEP CARE CONSULTATION ---
Information from patient questionnaire entered by Luke Clark MA. I have reviewed and concur with the information entered by Luke Clark MA. This document represents the service I personally performed and the decisions made by , Liz Timmons ARNP. History of Present Illness Service Date and Time: 09/30/2021 1407 Previous diagnosis: Severe, Obstructive Sleep Apnea-Hypopnea Syndrome AHI: 34.2 (in 2009) Reason for follow up: other (DISCUSS RECALL, 10 MONTH F/U) Equipment type: CPAP Equipment obtained from: [employer] (getting supplies as needed) Mask style: Nasal (cushion) Backup mask available: Yes (old mask) Last cushion change: 6 days ago Prior sleep studies: Yes Year and Where: 2009 - [facility] Sleep Type of Sleep Study: Polysomnography HPI additional information: LIAM WALDRON was diagnosed to have severe, AHI 34.2, obstructive sleep apnea-hypopnea syndrome and returns via video Telehealth visit today for CPAP therapy 10 month follow-up. Sleep Study - Results Type of Sleep Study: Polysomnography [facility] Yes [facility] Compliance Data - Data Reviewed with Patient Average duration of nightly device use: 9 HOURS 27 MINUTES Compliance rate %: 100 Current pressure setting (cmH2O): 14-16 Humidity settin Heated hose settin Average residual AHI: 6.7 Average large leak: 12 Subjective Patient concerns: denies: aerophagia, mask discomfort, air blowing in eyes, mask leak noise, condensation in mask/hose, nasal congestion, dry mouth, nose, throat, epistaxis, other Observed to snore while using device: No Current pressure setting perceived as: comfortable On therapy, patient: reports: sleeping better, awakening more refreshed, being more awake and alert during the day, more rested overall. denies: drowsiness while driving Initial [place] Sleepiness Scale score: 10 (in 2008) Current [place] Sleepiness Scale score: 9 (2021) Allergies and Home Medications Home medication list reviewed: Yes (no changes) Review of Systems Review of systems same as previous: Yes (no changes) Physical Exam Vital signs obtained and entered by: Telehealth visit to reduce exposure Height: 5 ft 1.5 in Impression and Plan 1. Obstructive Sleep Apnea-Hypopnea Syndrome, severe, with good treatment compliance and fair apnea control with minimal elevation of residual AHI. On CPAP therapy, the patient has better sleep quality and is more rested overall. Patient has already registered their device for the recall. Patient denies any black particles seen in machine or hoses, any unusual odors coming from device. Patient has not experienced any physical symptoms such as upper airway irritation, headache, skin or eye irritation, asthma, nausea/vomiting, difficulty breathing or chest pain. If patient is not able to sleep due to waking up choking, gasping for air or other respiratory distress that they may decide to continue using it until it is either replaced or repaired. Patient states she cannot sleep without her CPAP on. She will continue use and monitor closely for any debris in her machine. Patient voiced understanding and agreem ent with plan. Patient's apnea severity and rationale for treatment to reduce apnea, improve sleep quality and reduce cardiovascular and cerebrovascular events was reviewed. I also reviewed the benefit of consistent device use of CPAP for hypertension, arrhythmia, diabetes and gastric reflux. * Continue auto CPAP pressure at 14-16 cmH2O * Notify me if snoring with mask or feeling that the pressure is too much or too little * Attempt to lose weight * Call this office if any problems using CPAP * Return for follow up in 1 year, or sooner if concerns arise Counseling Topics: Spare mask, Weight loss health impact Visit Type: Telehealth Video Video Type: Sylvester Patient Location: Home Location of Provider: Office Patient agrees and consents to this telehealth visit type: Yes Patient agrees to have their insurance billed: Yes Time Spent with Patient (minutes): 20 Provider Statement: I spent 100% of the Telehealth Video Call with the patient with greater than 50% spent counseling the patient and coordination of care.
== END 2021-09-30 14:08 | disposition home or self-care (01) ==
LOC: SC 14:07
PROVIDERS: ATTEND Nurse Practitioner Family
DX: G47.33 Obstructive sleep apnea (adult) (pediatric) (principal)

== ENCOUNTER 2021-12-15 11:39 | Outpatient (CLI) | payer MEDICARE, OTHER ==
--- NOTE | 2021-12-15 12:31 | XRAY Report ---
PROCEDURE: Chest 2 View X-Ray INDICATIONS: PNEUMONIA TECHNIQUE: 2 view(s) of the chest. COMPARISON: December 01, 2021 FINDINGS: SUPPORT DEVICES: None. LUNGS/PLEURA: No focal consolidation, pleural effusion or space-occupying pneumothorax. MEDIASTINUM: The cardiomediastinal silhouette is within normal limits. BONES/SOFT TISSUES: No acute abnormality. IMPRESSION: 1.No acute cardiopulmonary abnormality. Reviewed by: Popeye Roberts MD on 12/15/2021 12:29 PM PDT Approved by: Popeye Roberts MD on 12/15/2021 12:29 PM PDT Station ID: [id number]
== END 2021-12-15 11:40 | disposition home or self-care (01) ==
LOC: DI.N 11:39
PROVIDERS: ATTEND Family Medicine
DX: J18.9 Pneumonia, unspecified organism (principal); I10 Essential (primary) hypertension; E11.9 Type 2 diabetes mellitus without complications
CPT/HCPCS: 36415; 80053; 80061; 82043; 82570; 83036; 83721; 85025

== ENCOUNTER 2021-12-15 11:42 | Outpatient (CLI) | payer MEDICARE, OTHER ==
[2021-12-15 18:50] LABS: BASOPHILS # (AUTO) 0.1 10^3/uL (0.0-0.1); BASOPHILS % (AUTO) 0.6 %; EOSINOPHILS # (AUTO) 0.2 10^3/uL (0.0-0.7); HCT - HEMATOCRIT 39.4 % (37.0-47.0); HGB - HEMOGLOBIN 12.1 g/dL (12.0-16.0); LYMPHOCYTES # (AUTO) 1.9 10^3/uL (1.5-3.5); LYMPHOCYTES % (AUTO) 23.8 %; MEAN CORPUSCULAR HEMOGLOBIN 28.6 pg (27.0-31.0); MEAN CORPUSCULAR HGB CONC 30.7 g/dL (32.0-36.0); MEAN CORPUSCULAR VOLUME 93.1 fL (81.0-99.0); MONOCYTES # (AUTO) 0.6 10^3/uL (0.0-1.0); MONOCYTES % (AUTO) 7.9 %; NEUTROPHILS # (AUTO) 5.2 10^3/uL (1.5-6.6); NEUTROPHILS % (AUTO) 65.3 %; PLT - PLATELET COUNT 235 10^3/uL (130-450); RED BLOOD COUNT 4.23 10^6/uL (4.20-5.40)
[2021-12-15 19:18] LABS: ALBUMIN 3.5 g/dL (3.2-5.5); ALBUMIN/GLOBULIN RATIO 1.1 (1.0-2.2); ALKALINE PHOSPHATASE 68 IU/L (42-121); ALT ALANINE AMINOTRANSFERASE 18 IU/L (10-60); AST ASPARTATE AMINOTRANSFERASE 27 IU/L (10-42); BILIRUBIN,TOTAL 1.1 mg/dL (0.2-1.0); BUN - BLOOD UREA NITROGEN 21 mg/dL (6-20); CALCIUM 9.3 mg/dL (8.5-10.3); CARBON DIOXIDE - CO2 30 mmol/L (21-32); CHLORIDE 99 mmol/L (101-111); CHOL/HDL RATIO 2.6 (<4.4); CHOLESTEROL 133 mg/dL; CREATININE 1.2 mg/dL (0.4-1.0); GFR - MDRD 44 (>89); GLUCOSE 214 mg/dL (70-100); HDL CHOLESTEROL 51 mg/dL; LDL CHOLESTEROL,CALCULATED 59 mg/dL; LDL/HDL RATIO 1.2 (<4.4); POTASSIUM 5.1 mmol/L (3.5-5.0); SODIUM 138 mmol/L (135-145); TOTAL PROTEIN 6.6 g/dL (6.7-8.2); TRIGLYCERIDES 117 mg/dL; VLDL CHOLESTEROL 23 mg/dL
[2021-12-15 19:24] LABS: CREATININE,URINE 122.1 mg/dL; MICROALBUM/CREATININE RATIO,UR 4.1 ug/mg (<30.0); MICROALBUMIN,URINE 0.5 mg/dL (0-300.0)
[2021-12-15 20:58] LABS: ESTIMATED AVERAGE GLUCOSE 177 mg/dL (70-100); HEMOGLOBIN A1c% 7.8 % (4.27-6.07)
== END 2021-12-15 11:43 | disposition home or self-care (01) ==
LOC: LAB.N 11:42
PROVIDERS: ATTEND Family Medicine
DX: I10 Essential (primary) hypertension (principal); E11.9 Type 2 diabetes mellitus without complications
CPT/HCPCS: 36415; 80053; 80061; 82043; 82570; 83036; 83721; 85025

== ENCOUNTER 2022-01-21 08:00 | Outpatient (CLI) | payer MEDICARE, OTHER | END 2022-01-22 18:57 | disposition home or self-care (01) | LOC: LAB.N 08:00 | PROVIDERS: ATTEND Nurse Practitioner | DX: J18.9 Pneumonia, unspecified organism (principal); Z20.822 Contact with and (suspected) exposure to COVID-19 ==

== ENCOUNTER 2022-02-10 09:54 | Outpatient (CLI) | payer MEDICARE, OTHER ==
--- NOTE | 2022-02-10 10:45 | XRAY Report ---
PROCEDURE: Toe(s) RT INDICATIONS: CONTUSION OF R GREAT TOE TECHNIQUE: 3 views of the right first and second toe(s) acquired. COMPARISON: None FINDINGS: Bones: No fractures or dislocations. No suspicious bony lesions. Metatarsus primus varus. Joint sp marge narrowing and periarticular osteophyte formation at the first metatarsophalangeal joint, as well as the interphalangeal joints of the digits. Soft tissues: No suspicious soft tissue densities. IMPRESSION: 1. Osteoarthritis. 2. No acute fracture. No osseous lesion. If symptoms and/or clinical suspicion for pathology continue , further assessment with repeat plain films, or advanced imaging (e.g., CT, MRI, or bone scan) is re commended for further assessment. Reviewed by: Elena Osullivan MD on 02/10/2022 10:44 AM PDT Approved by: Elena Osullivan MD on 02/10/2022 10:44 AM PDT Station ID: [id number]
== END 2022-02-10 09:55 | disposition home or self-care (01) ==
LOC: DI.N 09:54
PROVIDERS: ATTEND Physician Assistant
DX: M19.071 Primary osteoarthritis, right ankle and foot (principal)

== ENCOUNTER 2022-07-16 10:48 | Outpatient (CLI) | payer MEDICARE, OTHER ==
[2022-07-16 18:10] LABS: CREATININE,URINE 151.5 mg/dL; MICROALBUM/CREATININE RATIO,UR 7.3 ug/mg (<30.0); MICROALBUMIN,URINE 1.1 mg/dL (0-300.0)
== END 2022-07-16 10:49 | disposition home or self-care (01) ==
LOC: LAB.N 10:48
PROVIDERS: ATTEND Family Medicine
DX: E11.9 Type 2 diabetes mellitus without complications (principal)
CPT/HCPCS: 82043; 82570

== ENCOUNTER 2022-07-29 15:12 | Outpatient (CLI) | payer MEDICARE, OTHER ==
--- NOTE | 2022-08-02 10:08 | Mammography Report ---
BILATERAL DIGITAL SCREENING MAMMOGRAM 3D/2D: 07/29/2022 CLINICAL: Family history of breast cancer. Routine screening. Comparison is made to exams dated: 06/05/2020 mammogram, 01/10/2018 mammogram, 04/28/2016 mammogram, 03/13 mammogram, 04/11/2014 mammogram, and 03/29/2013 mammogram - [facility]. Both breasts are almost entirely fatty (category a/<25% glandular tissue). There are benign calcifications in both breasts. No significant masses, calcifications, or other findings are seen in either breast. There has been no significant interval change. IMPRESSION: BENIGN There is no mammographic evidence of malignancy. A 1 year screening mammogram is recommended. Based on the Tyrer Cuzick model (a risk assessment model) the patients lifetime risk is 3.4% and her 10 year risk is 3.4%. According to the ACR, ACS, and NCCN guidelines, an annual breast MRI exam jennyfer g with mammogram is recommended if the patients lifetime risk is 20% or greater. This exam was interpreted at Station ID: [id number]. NOTE: For mammograms, a report in lay terms will be sent to the patient. Approximately 15% of breast malignancies will not be visualized mammographically. In the management of a palpable breast mass, a negative mammogram must not discourage biopsy of a clinically suspicious lesion. Electronically Signed By: Deric Wiggins M.D., jr/riki:07/30/2022 10:06:47 ACR BI-RADS Category 2: Benign Finding(s) 3342F PARENCHYMAL PATTERN: (F) - The breast(s) demonstrate(s) diffuse fatty replacement. BI-RADS CATEGORY: (2) - 2 RECOMMENDATION: (ANNUAL) - Recommend routine annual screening mammography. [id number] 1 year screening LATERALITY: (B)
== END 2022-07-29 15:13 | disposition home or self-care (01) ==
LOC: DI.N 15:12
DX: Z12.31 Encounter for screening mammogram for malignant neoplasm of breast (principal); Z80.3 Family history of malignant neoplasm of breast

== ENCOUNTER 2022-10-14 14:34 | Outpatient (CLI) | payer MEDICARE, OTHER ==
[2022-10-14 15:02] VITALS: BP 124/68
--- NOTE | 2022-10-14 15:02 | SLEEP CARE CONSULTATION ---
Information from patient questionnaire entered by Amanda Randall. I have reviewed and concur with the information entered by Amanda Randall. This document represents the service I personally performed and the decisions made by me, Liz Timmons ARNP. History of Present Illness Service Date and Time: 10/14/2022 1434 Previous diagnosis: Severe, Obstructive Sleep Apnea-Hypopnea Syndrome AHI: 34.2 (in 2009) Reason for follow up: annual Accompanied by: Spouse Equipment type: CPAP ([employer] Dream[employer] recertified; s/u 09/2020) Equipment obtained from: [employer] (getting supplies as needed) Mask style: Nasal Backup mask available: Yes (old mask) Last cushion change: 2.5 weeks [facility]: Yes [facility] Type of Sleep Study: Polysomnography HPI additional information: LIAM WALDRON was diagnosed to have severe, AHI 34.2, obstructive sleep apnea-hypopnea syndrome and returned today with spouse for CPAP therapy annual follow-up. Sleep Study - Results Type of Sleep Study: Polysomnography Prior sleep studies: Yes [facility] CP[facility] Compliance Data - Data Reviewed with Patient Average duration of nightly device use: 8 HRS 53 MIN 24SEC Compliance rate %: 99.4 (04/16/22-10/12/22; 180/180 days used) Current pressure setting (cmH2O): 14-16 (avg 16) Average residual AHI: 6.8 Central apnea: 0.2 Obstructive apnea: 5.8 Hypopnea: 0.8 Average large leak: 1 min 6 sec Subjective Patient concerns: reports: aerophagia (in the mornings), air blowing in eyes, mask leak noise, dry mouth, nose, throat (dry nose; dry mouth). denies: mask discomfort, condensation in mask/hose, epistaxis Observed to snore while using device: Yes (sometimes) Current pressure setting perceived as: comfortable On therapy, patient: reports: sleeping better, awakening more refreshed, being more awake and alert during the day, more rested overall. denies: drowsiness w hile driving (doesn't drive) Initial [place] Sleepiness Scale score: 10 (in 2008) Current [place] Sleepiness Scale score: 6 (10/14/22) Allergies and Home Medications Drug allergies reviewed: Yes (as listed in EMR) Home medication list reviewed: Yes (Trulicity is increased to 4.5) Review of Systems Review of systems same as previous: Yes (no changes) Physical Exam Vital signs obtained and entered by: AMANDA Kate MA Blood Pressure: 124/68 (LEFT ARM) Cuff size: regular Heart Rate: 71 O2 Saturation: 99 Height: 5 ft 1 in Weight: 312 lb (PER PT) Body Mass Index: 58.9 BMI Classification: Morbidly Obese Impression and Plan 1. Obstructive Sleep Apnea-Hypopnea Syndrome, severe, with good treatment compliance and fair apnea control with mild elevation of residual AHI. On CPAP therapy, the patient has better sleep quality and is more rested overall. She has mild elevation of her AHI but patient states she thinks the pressure may be too high. She has developed some bloating in the morning with burping but states it is not uncomfortable. She has some mask leaks and gets very dry mouth and nose. Oral dryness can be reduced by adjusting humidity setting higher or heated hose lower or by adjusting both settings. Verbal instructions given on how to change humidity and heated hose settings with rationale explaining why to change. Oral dryness can also be reduced by reducing mask leaks. She would like to try a full face mask similar to her nasal cushion mask. I will write for a mask refitting for a full face hybrid mask like the Airfit F30i or Dreamwear full face. Patient does not want to adjust pressure until she tries the full face mask to see if this improves things overall. No changes will be made at this time. Patient's apnea severity and rationale for treatment to reduce apnea, improve sleep quality and reduce cardiovascular and cerebrovascular events was reviewed. I also reviewed the benefit of consistent device use of CPAP for hypertension, arrhythmia, diabetes and gastric reflux. 2. Obesity, unspecified. Currently patients BMI is 58.9. Obesity increases the risk of apnea, CPAP pressure requirements and overall health risks especially cardiovascular and diabetes. Thus patient is advised to lose weight. * Continue auto CPAP pressure at 14-16 cmH2O * Mask refitting for full face hybrid mask * Update supplies * Notify me if snoring with mask or feeling that the pressure is too much or too little * Attempt to lose weight * Call this office if any problems using CPAP * Return for follow up in 1 year, or sooner if concerns arise Counseling Topics: Spare mask, Weight loss health impact Visit Type: In Office Other Participants: Spouse/Significant Other Time Spent with Patient (minutes): 20 Provider Statement: I spent 100% of the Face to Face Visit with the patient with greater than 50% spent counseling the patient and coordination of care.
== END 2022-10-14 14:35 | disposition home or self-care (01) ==
LOC: SC 14:34
PROVIDERS: ATTEND Nurse Practitioner Family
DX: G47.33 Obstructive sleep apnea (adult) (pediatric) (principal); E66.01 Morbid (severe) obesity due to excess calories; Z68.43 Body mass index [BMI] 50.0-59.9, adult
CPT/HCPCS: 99213; G0463; 99212

== ENCOUNTER 2022-10-15 12:13 | Outpatient (CLI) | payer MEDICARE, OTHER ==
[2022-10-15 20:15] LABS: BASOPHILS # (AUTO) 0.1 10^3/uL (0.0-0.1); BASOPHILS % (AUTO) 0.8 %; EOSINOPHILS # (AUTO) 0.2 10^3/uL (0.0-0.7); EOSINOPHILS % (AUTO) 3.1 %; HGB - HEMOGLOBIN 12.5 g/dL (12.0-16.0); LYMPHOCYTES # (AUTO) 1.7 10^3/uL (1.5-3.5); LYMPHOCYTES % (AUTO) 22.3 %; MEAN CORPUSCULAR HEMOGLOBIN 29.1 pg (27.0-31.0); MEAN CORPUSCULAR HGB CONC 30.5 g/dL (32.0-36.0); MEAN CORPUSCULAR VOLUME 95.6 fL (81.0-99.0); MEAN PLATELET VOLUME 11.5 fL (7.9-10.8); MONOCYTES # (AUTO) 0.7 10^3/uL (0.0-1.0); MONOCYTES % (AUTO) 8.5 %; NEUTROPHILS % (AUTO) 64.9 %; PLT - PLATELET COUNT 266 10^3/uL (130-450); RED BLOOD COUNT 4.29 10^6/uL (4.20-5.40); RED CELL DISTRIBUTION WIDTH 15.6 % (12.0-15.0); WHITE BLOOD COUNT 7.7 x10^3/uL (4.8-10.8)
[2022-10-15 21:05] LABS: ALBUMIN 3.5 g/dL (3.2-5.5); ALBUMIN/GLOBULIN RATIO 1.1 (1.0-2.2); CREATININE 1.4 mg/dL (0.4-1.0); POTASSIUM 4.1 mmol/L (3.5-5.0); TOTAL PROTEIN 6.8 g/dL (6.7-8.2)
[2022-10-15 21:34] LABS: ESTIMATED AVERAGE GLUCOSE 209 mg/dL (70-100); HEMOGLOBIN A1c% 8.9 % (4.27-6.07)
== END 2022-10-15 12:14 | disposition home or self-care (01) ==
LOC: LAB.N 12:13
PROVIDERS: ATTEND Nurse Practitioner Family
DX: I12.9 Hypertensive chronic kidney disease with stage 1 through stage 4 chronic kidney disease, or unspecified chronic kidney disease (principal); E11.22 Type 2 diabetes mellitus with diabetic chronic kidney disease; N18.30 Chronic kidney disease, stage 3 unspecified; I48.91 Unspecified atrial fibrillation; Z79.01 Long term (current) use of anticoagulants; Z79.4 Long term (current) use of insulin
CPT/HCPCS: 36415; 80053; 83036; 85025

== ENCOUNTER 2022-12-09 14:55 | Outpatient (CLI) | payer MEDICARE, OTHER | END 2022-12-09 14:56 | disposition home or self-care (01) | LOC: DI 14:55 | PROVIDERS: ATTEND Nurse Practitioner Family | DX: E11.22 Type 2 diabetes mellitus with diabetic chronic kidney disease (principal); I10 Essential (primary) hypertension; I48.0 Paroxysmal atrial fibrillation; E66.01 Morbid (severe) obesity due to excess calories; I08.1 Rheumatic disorders of both mitral and tricuspid valves; I27.20 Pulmonary hypertension, unspecified | CPT/HCPCS: 93306 ==

== ENCOUNTER 2022-12-31 11:36 | Outpatient (CLI) | payer MEDICARE, OTHER ==
[2022-12-31 18:18] LABS: CHOL/HDL RATIO 2.3 (<4.4); CHOLESTEROL 150 mg/dL; HDL CHOLESTEROL 65 mg/dL; LDL CHOLESTEROL,CALCULATED 65 mg/dL; TRIGLYCERIDES 101 mg/dL; VLDL CHOLESTEROL 20 mg/dL
[2022-12-31 22:27] LABS: ESTIMATED AVERAGE GLUCOSE 194 mg/dL (70-100); HEMOGLOBIN A1c% 8.4 % (4.27-6.07)
== END 2022-12-31 11:37 | disposition home or self-care (01) ==
LOC: LAB.N 11:36
PROVIDERS: ATTEND Nurse Practitioner Family
DX: E11.22 Type 2 diabetes mellitus with diabetic chronic kidney disease (principal); E78.5 Hyperlipidemia, unspecified
CPT/HCPCS: 36415; 80061; 83036; 83721

== ENCOUNTER 2023-01-10 10:52 | Outpatient (CLI) | payer MEDICARE, OTHER ==
[2023-01-10 18:16] LABS: CALCIUM 9.1 mg/dL (8.5-10.3); CREATININE 1.3 mg/dL (0.4-1.0); POTASSIUM 4.3 mmol/L (3.5-5.0)
[2023-01-10 18:22] LABS: CREATININE,URINE 167.5 mg/dL; PROTEIN/CREATININE RATIO,URINE 0.1 (<=0.2)
== END 2023-01-10 10:53 | disposition home or self-care (01) ==
LOC: LAB.N 10:52
PROVIDERS: ATTEND Internal Medicine Nephrology
DX: N05.9 Unspecified nephritic syndrome with unspecified morphologic changes (principal); R80.9 Proteinuria, unspecified
CPT/HCPCS: 36415; 80048; 82570; 84156

== ENCOUNTER 2023-02-28 11:22 | Outpatient (CLI) | payer MEDICARE, OTHER ==
[2023-02-28 17:40] LABS: CALCIUM 9.2 mg/dL (8.5-10.3); CREATININE 1.7 mg/dL (0.4-1.0); POTASSIUM 4.1 mmol/L (3.5-5.0)
== END 2023-02-28 11:23 | disposition home or self-care (01) ==
LOC: LAB.N 11:22
PROVIDERS: ATTEND Nurse Practitioner Family
DX: E11.9 Type 2 diabetes mellitus without complications (principal); N05.9 Unspecified nephritic syndrome with unspecified morphologic changes
CPT/HCPCS: 36415; 80048

== ENCOUNTER 2023-03-19 08:00 | Outpatient (CLI) | payer MEDICARE, OTHER | END 2023-03-19 23:59 | disposition home or self-care (01) | LOC: LAB.N 08:00 | PROVIDERS: ATTEND Nurse Practitioner | DX: T14.8XXA Other injury of unspecified body region, initial encounter (principal) | CPT/HCPCS: 87070; 87181; 87205 ==

== ENCOUNTER 2023-06-30 11:45 | Outpatient (CLI) | payer MEDICARE, OTHER ==
[2023-06-30 18:01] LABS: CALCIUM 9.9 mg/dL (8.5-10.3); CREATININE 1.9 mg/dL (0.6-1.3); POTASSIUM 4.3 mmol/L (3.5-4.5)
[2023-06-30 18:52] LABS: CREATININE,URINE 36.2 mg/dL; MICROALBUM/CREATININE RATIO,UR 60.8 ug/mg (<30.0); MICROALBUMIN,URINE 2.2 mg/dL
[2023-06-30 20:52] LABS: ESTIMATED AVERAGE GLUCOSE 186 mg/dL (70-100); HEMOGLOBIN A1c% 8.1 % (4.27-6.07)
== END 2023-06-30 11:46 | disposition home or self-care (01) ==
LOC: LAB.N 11:45
PROVIDERS: ATTEND Nurse Practitioner Family
DX: E11.9 Type 2 diabetes mellitus without complications (principal)
CPT/HCPCS: 36415; 80048; 82043; 82570; 83036

== ENCOUNTER 2023-08-10 22:48 | Emergency (ER) | payer MEDICARE, OTHER ==
[2023-08-10 23:03] VITALS: BP 129/64; O2SAT 97
[2023-08-10] MEDS ORDERED: TRANEXAMIC ACID 1,000 MG/10 ML VIAL NAS STA (23:05)
[2023-08-11] MEDS ORDERED: TETANUS/DIPHTHERIA/PERTUSSIS 0.5 ML SYRINGE IM ONE (00:02)
--- NOTE | 2023-08-11 00:02 | ED Physician Documentation ---
PD HPI LOWER EXT INJURY - Stated complaint Stated Complaint: RT FOOT TOE INJ - Chief complaint Chief Complaint: Ext Problem - History obtained from History obtained from: Patient - History of Present Illness PD HPI LOW EXT INJURY LOCATION: Right, Toe (4th) Type of injury: Other (avulsion injury from clipping nails too short) Where injury occurred: Home Timing - onset: Today - Additional information Additional information: unable to get bleeding to stop 2/2 eliquis PD PAST MEDICAL HISTORY - Past Medical History Cardiovascular: Hypertension, High cholesterol, Atrial fibrillation Respiratory: Pneumonia, Sleep apnea (with CPAP use at night, not on oxygen. 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 HEENT: Cataracts - Present Medications Home Medications: Ambulatory Orders Medication Instructions Recorded Confirmed Atorvastatin Calcium [Lipitor] 10 mg PO QPM 05/03/14 03/29/23 Colchicine [Colcrys] 0.6 mg PO TID PRN 05/03/14 03/29/23 Telmisartan [Micardis] 40 mg PO DAILY 05/03/14 03/29/23 allopurinoL [Allopurinol] 300 mg PO DAILY 05/03/14 03/29/23 Ginkgo Biloba [place] Extract [Ginkgo] 60 mg ORAL DAILY 06/25/14 03/29/23 Insulin Glargine,Hum.rec.anlog 50 units SQ DAILY PM 04/16/15 03/29/23 [Lantus] Apixaban [Eliquis] 5 mg PO BID 04/11/19 03/29/23 Furosemide 20 mg PO Q2D 04/11/19 03/29/23 Gabapentin 900 - 1,200 mg PO BID 04/11/19 03/29/23 L.acid/L.casei/B.bif/B.sloane/Fos 1 each PO DAILY 04/11/19 03/29/23 [Probiotic Blend Capsule] Metoprolol Succinate [Toprol Xl] 50 mg PO DAILY 04/11/19 03/29/23 Pantoprazole Sodium 40 mg PO DAILY 04/11/19 03/29/23 Potassium Chloride [Klor-Con 10] 10 meq PO DAILY 04/11/19 03/29/23 Cholecalciferol (Vitamin D3) 5,000 unit PO DAILY 05/26/20 03/29/23 [Vitamin D3] Cyanocobalamin (Vitamin B-12) 5,000 mcg PO DAILY 05/26/20 03/29/23 [Vitamin B-12] Dulaglutide [Trulicity] 3 mg SQ Q7D 12/02/21 03/29/23 Doxycycline Hyclate 100 mg PO BID #8 cap 12/04/21 03/29/23 Saccharomyces Boulardii [Florastor] 250 mg PO BIDWM #8 cap 12/04/21 03/29/23 Insulin Aspart [NovoLOG] 18 units SUBQ TIDWM 03/29/23 03/29/23 clindamycin HCL [Clindamycin HCl] 300 mg PO QID 7 Days #28 cap 04/14/23 - Allergies Allergies/Adverse Reactions: Allergies Allergy/AdvReac Type Severity Reaction Status Date / Time erythromycin base Allergy Hives Verified 08/10/23 23:02 [Erythromycin Base] hydrocodone bitartrate * Allergy Hives Verified 08/10/23 23:02 [From Vicodin] levofloxacin [From Levaquin] Allergy Itching Verified 08/10/23 23:02 penicillin G Allergy Anaphylaxis Verified 08/10/23 23:02 propoxyphene HCl * Allergy Hives Verified 08/10/23 23:02 [From Darvon] adhesive tape AdvReac Intermediate Paper tape Verified 08/10/23 23:02 removes skin latex AdvReac Itching Verified 08/10/23 23:02 - Social History Does the pt smoke?: No Smoking Status: Former smoker Does the pt drink ETOH?: No Does the pt have substance abuse?: No - Immunizations Immunizations are current?: Yes PD ED PE NORMAL - Vitals Vital signs reviewed: Yes - General General: Alert and oriented X 3, No acute distress, Well developed/nourished - HEENT HEENT: Atraumatic, PERRL, EOMI - Derm Derm: Normal color, Warm and dry, Other (avulsion to distal tip of R 4th toe just inferior to the nail) Results - Vitals Vitals: Vital Signs - 24 hr 08/10/23 22:52 Temperature 36.4 C L Heart Rate 77 Respiratory 18 Rate Blood Pressure 129/64 O2 Saturation 97 Oxygen O2 Source Room air Procedures - Laceration (location) Toe right Length in cm: 0.5 Wound type: Superficial Neurovascular status: Sensory intact, Motor intact, Other (bleeding actively until finger tourniquet was applied. then stopped with dermabond application and removal of finger tourniquet) Skin layer closure: Dermabond Other: Patient tolerated well, No complications, Tetanus booster given PD Medical Decision Making - ED course ED course: 77yF presents to the ED with R fourth toe avulsed skin after her clipped her toenails too short. Patient on eliquis and unable to staunch bleeding herself. dermabond skin glue applied after application of TXA and finger tourniquet. return precautions given. patient has apt with pcp tomorrow. Departure - Departure Disposition: 01 Home, Self Care Clinical Impression: Avulsion of toe Condition: Stable Instructions: ED Laceration Ext Skin Glue Comments: You were seen in the emergency department for bleeding to your toe. Dermabond sk in glue was applied as well as a clear liquid medicine called TXA. keep the area dry for 24 hours. the glue will fall off like a scab. do not scrub the area since it can cause rebleeding. Please follow-up with your primary care provider and return to the emergency department if you have any new or worsening symptoms or other concerns. Forms: PCP List
== END 2023-08-11 01:01 | disposition home or self-care (01) ==
LOC: ED 22:48
DX: S91.204A Unspecified open wound of right lesser toe(s) with damage to nail, initial encounter (principal); X58.XXXA Exposure to other specified factors, initial encounter; I48.91 Unspecified atrial fibrillation; Z79.01 Long term (current) use of anticoagulants; I10 Essential (primary) hypertension; Z87.891 Personal history of nicotine dependence; Z23 Encounter for immunization
CPT/HCPCS: 12001; 90471; 99282

== ENCOUNTER 2023-08-24 15:18 | Outpatient (CLI) | payer MEDICARE, OTHER ==
--- NOTE | 2023-08-25 10:19 | Mammography Report ---
BILATERAL DIGITAL SCREENING MAMMOGRAM: 08/24/2023 CLINICAL: Routine screening. Family history of breast cancer. Comparison is made to exams dated: 07/29/2022 mammogram, 06/05/2020 mammogram, and 01/10/2018 mammogram - [facility]. Both breasts are almost entirely fatty (category a/<25% glandular tissue). There are benign calcifications in both breasts. No significant masses, calcifications, or other findings are seen in either breast. There has been no significant interval change. IMPRESSION: BENIGN There is no mammographic evidence of malignancy. A 1 year screening mammogram is recommended. Based on the Tyrer Cuzick model (a risk assessment model) the patients lifetime risk is 3.2% and her 10 year risk is 0.0%. According to the ACR, ACS, and NCCN guidelines, an annual breast MRI exam jennyfer g with mammogram is recommended if the patients lifetime risk is 20% or greater. This exam was interpreted at Station ID: [id number]. NOTE: For mammograms, a report in lay terms will be sent to the patient. Approximately 15% of breast malignancies will not be visualized mammographically. In the management of a palpable breast mass, a negative mammogram must not discourage biopsy of a clinically suspicious lesion. Electronically Signed By: Desmond marina/riki:08/25/2023 07:51:25 letter sent: No_Letter ACR BI-RADS Category 2: Benign Finding(s) 3342F PARENCHYMAL PATTERN: (F) - The breast(s) demonstrate(s) diffuse fatty replacement. BI-RADS CATEGORY: (2) - 2 Mammogram [id number] 1 year screening LATERALITY: (B)
== END 2023-08-24 15:19 | disposition home or self-care (01) ==
LOC: DI.N 15:18
DX: Z12.31 Encounter for screening mammogram for malignant neoplasm of breast (principal); Z80.3 Family history of malignant neoplasm of breast

== ENCOUNTER 2023-10-18 15:14 | Outpatient (CLI) | payer MEDICARE, OTHER ==
--- NOTE | 2023-10-18 15:52 | Sleep Patient Instructions ---
Sleep Center Visit Summary - Patient Visit Information Reason for Visit: Annual Visit - Patient Instructions Additional Instructions: You will continue with CPAP therapy with pressure set at 14-16 cmH2O. A supply prescription will be updated with your DME. I have ordered a titration study to try to find an optimal pressure, you will be given a call to schedule once we have authorization. We encourage you to continue to try to lose weight. Please follow up with the sleep care office after titration study. - Clinic Information Contact: [facility] [address] [place] [address] [email or web address] T: [phone]
--- NOTE | 2023-10-18 15:56 | SLEEP CARE CONSULTATION ---
Information from patient questionnaire entered by Amanda Randall. I have reviewed and concur with the information entered by Amanda Randall. This document represents the service I personally performed and the decisions made by me, Liz Timmons ARNP. History of Present Illness Service Date and Time: 10/18/2023 1520 Previous diagnosis: Severe, Obstructive Sleep Apnea-Hypopnea Syndrome AHI: 34.2 (in 2009) Reason for follow up: annual (LAST SEEN 11/04) Accompanied by: Spouse Equipment type: CPAP (BERG Dreamstation recertified; s/u 09/2020) Equipment obtained from: [employer] (getting supplies as needed) Mask style: Nasal Mask brand: Respironics (Dreamwear) Backup mask available: Yes (old mask) Last cushion change: 5 days ago Prior sleep studies: Yes Year and Where: 2009 - [facility] Type of Sleep Study: Polysomnography HPI additional information: LIAM WALDRON was diagnosed to have severe, AHI 34.2, obstructive sleep apnea-hypopnea syndrome and returned today with spouse for CPAP therapy annual follow-up. Sleep Study - Results Type of Sleep Study: Polysomnography Prior sleep studies: Yes Year and Where: 2009 - [facility] CPAP Compliance Data - Data Reviewed with Patient Average duration of nightly device use: 8 HRS 57 MINS 36 SECS Compliance rate %: 99.7 (10/13/22-10/12/23; 365/365 days used) Current pressure setting (cmH2O): 14-16 Average residual AHI: 7.7 Central apnea: 0.2 Obstructive apnea: 6.7 Hypopnea: 0.8 Average large leak: 32 secs Subjective Patient concerns: reports: mask leak noise, nasal congestion (lasts all day), dry mouth, nose, throat. denies: aerophagia, mask discomfort, air blowing in eyes, condensation in mask/hose, epistaxis Observed to snore while using device: Yes (according to ) Current pressure setting perceived as: comfortable On therapy, patient: reports: sleeping better (sometimes, but no always). denies: more rested overall Initial [place] Sleepiness Scale score: 10 (in 2008) Current [place] Sleepiness Scale score: 7 (10/18/23) Allergies and Home Medications Known drug allergies: Yes (as listed) Drug allergies reviewed: Yes Home medication list reviewed: Yes (no changes) Allergy and home medication list: Allergies erythromycin base [Erythromycin Base] Allergy (Verified 10/14/23 15:33) Hives hydrocodone bitartrate * [From Vicodin] Allergy (Verified 10/14/23 15:33) Hives levofloxacin [From Levaquin] Allergy (Verified 10/14/23 15:33) Itching penicillin G Allergy (Verified 10/14/23 15:33) Anaphylaxis propoxyphene HCl * [From Darvon] Allergy (Verified 10/14/23 15:33) Hives adhesive tape Adverse Reaction (Intermediate, Verified 10/14/23 15:33) Paper tape removes skin latex Adverse Reaction (Verified 10/14/23 15:33) Itching Home Medications Medication Instructions Recorded Confirmed Last Taken Type Atorvastatin Calcium [Lipitor] 10 mg PO QPM 05/03/14 10/18/23 05/28/20 History Colchicine [Colcrys] 0.6 mg PO TID PRN 05/03/14 10/18/23 05/28/20 History Telmisartan [Micardis] 40 mg PO DAILY 05/03/14 10/18/23 05/28/20 History allopurinoL [Allopurinol] 300 mg PO DAILY 05/03/14 10/18/23 05/28/20 History Ginkgo Biloba [place] Extract [Ginkgo] 60 mg ORAL DAILY 06/25/14 10/18/23 06/24/14 History Insulin Glargine,Hum.rec.anlog 50 units SQ DAILY PM 04/16/15 10/18/23 05/28/20 History [Lantus] Apixaban [Eliquis] 5 mg PO BID 04/11/19 10/18/23 05/25/20 History Furosemide 20 mg PO Q2D 04/11/19 10/18/23 05/28/20 History Gabapentin 900 - 1,200 mg PO BID 04/11/19 10/18/23 05/28/20 History L.acid/L.casei/B.bif/B.sloane/Fos 1 each PO DAILY 04/11/19 10/18/23 Unknown History [Probiotic Blend Capsule] Metoprolol Succinate [Toprol Xl] 50 mg PO DAILY 04/11/19 10/18/23 05/28/20 History Pantoprazole Sodium 40 mg PO DAILY 04/11/19 10/18/23 05/28/20 History Potassium Chloride [Klor-Con 10] 10 meq PO DAILY 04/11/19 10/18/23 05/28/20 History Cholecalciferol (Vitamin D3) 5,000 unit PO DAILY 05/26/20 10/18/23 Unknown History [Vitamin D3] Cyanocobalamin (Vitamin B-12) 5,000 mcg PO DAILY 05/26/20 10/18/23 Unknown History [Vitamin B-12] Dulaglutide [Trulicity] 3 mg SQ Q7D 12/02/21 10/18/23 Unknown History Doxycycline Hyclate 100 mg PO BID #8 cap 12/04/21 10/18/23 Unknown Rx Saccharomyces Boulardii [Florastor] 250 mg PO BIDWM #8 cap 12/04/21 10/18/23 Unknown Rx Insulin Aspart [NovoLOG] 18 units SUBQ TIDWM 03/29/23 10/18/23 Unknown History clindamycin HCL [Clindamycin HCl] 300 mg PO QID 7 Days #28 cap 04/14/23 10/18/23 Unknown Rx Review of Systems Review of systems same as previous: Yes (NO CHANGE) Physical Exam Vital signs obtained and entered by: AMANDA Kate MA Blood Pressure: 147/65 (LEFT ) Cuff size: wrist Heart Rate: 77 O2 Saturation: 95 Height: 5 ft 1 in Weight: 309 lb Body Mass Index: 58.3 BMI Classification: Morbidly Obese Impression and Plan 1. Obstructive Sleep Apnea-Hypopnea Syndrome, severe, with good treatment compliance and fair apnea control with mild elevation of residual AHI. On CPAP therapy, the patient has better sleep quality and is more rested overall. Patient's residual AHI is still elevated. She is snoring when using her CPAP and states she does not always feel rested when she is getting up in the morning. Because she has at higher pressures and it has been a long time since her last study I think would be prudent to have her do a titration study. Patient's pressure setting is still not optimal to control sleep apnea. I advised patient that a titration study will be next step to determine a more optimal pressure setting. She voiced understanding and agreement. Patient's apnea severity and rationale for treatment to reduce apnea, improve sleep quality and reduce cardiovascular and cerebrovascular events was reviewed. I also reviewed the benefit of consistent device use of CPAP for hypertension, arrhythmia, diabetes and gastric reflux. 2. Obesity, unspecified. Currently patients BMI is 58.3. Obesity increases the risk of apnea, CPAP pressure requirements and overall health risks especially cardiovascular and diabetes. Thus patient is advised to lose weight. * Continue auto CPAP pressure at 14-16 cmH2O * Update supply prescription * Titration study * Notify me if snoring with mask or feeling that the pressure is too much or too little * Attempt to lose weight * Call this office if any problems using CPAP * Return for follow up after titration study, or sooner if concerns arise Counseling Topics: Spare mask, Weight loss health impact Prescriptions: Device supplies Plan: Titration study Visit Type: In Office Time Spent with Patient (minutes): 20 Provider Statement: I spent 100% of the Face to Face Visit with the patient with greater than 50% spent counseling the patient and coordination of care.
[2023-10-18 15:59] VITALS: BP 147/65; O2SAT 95
== END 2023-10-18 15:15 | disposition home or self-care (01) ==
LOC: SC 15:14
PROVIDERS: ATTEND Nurse Practitioner Family
DX: G47.33 Obstructive sleep apnea (adult) (pediatric) (principal); E66.01 Morbid (severe) obesity due to excess calories; Z68.43 Body mass index [BMI] 50.0-59.9, adult
CPT/HCPCS: 99213; G0463; 99212

== ENCOUNTER 2023-12-02 09:22 | Outpatient (CLI) | payer MEDICARE, OTHER ==
--- NOTE | 2023-12-02 09:50 | Sleep Patient Instructions ---
Sleep Center Visit Summary - Patient Visit Information Reason for Visit: Titration study follow-up - Patient Instructions Additional Instructions: You were here for follow up of CPAP therapy. You will be continued on CPAP therapy with pressure at 14 cmH2O. Please let us know if the pressure change is uncomfortable and we can make further adjustments of the pressure. You should follow up with sleep care in 3 months. You may contact us sooner for any questions or concerns. - Clinic Information Contact: [facility] [address] [place] [id number] [email or web address] T: [phone]
--- NOTE | 2023-12-02 09:54 | SLEEP CARE CONSULTATION ---
Information from patient questionnaire entered by Amanda Randall. I have reviewed and concur with the information entered by Amanda Randall. This document represents the service I personally performed and the decisions made by , Liz Timmons ARNP. History of Present Illness Service Date and Time: 12/02/2023 09 Accompanied by: Spouse (Conor) Initial [place] Sleepiness Scale score: 10 (in 2008) Current [place] Sleepiness Scale score: 10 (11/2022) Additional HPI information: LIAM WALDRON returns for follow up of the sleep study with a manual CPAP titration study performed on 11/10/23. Patient has severe obstructive sleep apnea with AHI 34.2. The patient was informed of the following polysomnography findings: CPAP was initiated at 12 cmH2O and titrated up to CPAP at 17 cmH2O. CPAP at 14 cmH2O appeared to be optimal (AHI of 1.0 per hour on the pressure). The patient did not sleep supine during this study. Oxygen saturation was normal throughout the night. Lower CPAP settings appeared adequate as well. The patient appeared to have tolerated positive airway pressure therapy fairly well. Sleep Study - Results Type of Sleep Study: Polysomnography (TITRATION STUDY F/U 11/10/23) Prior sleep studies: Yes Year and Where: 2009 - [facility] Polysomnography/Home Sleep Study results: IMPRESSION: The quality of the study is fair due to frequent loss of pulse oximetry signal. CPAP was initiated at 12 cmH2O and titrated up to CPAP at 17 cmH2O. CPAP at 14 cmH2O appeared to be optimal (AHI of 1.0 per hour on the pressure). The patient did not sleep supine during this study. Oxygen saturation was normal throughout the night. Lower CPAP settings appeared adequate as well. The patient appeared to have tolerated positive airway pressure therapy fairly well. The patients sleep efficiency was poor. The sleep architecture was abnormal for lack of REM sleep. There was no significant periodic leg movement of sleep. Cardiac rhythm was atrial fibrillation. No abnormal behavior (parasomnia) observed during the night. Allergies and Home Medications Known drug allergies: Yes (as listed) Drug allergies reviewed: Yes Home medication list reviewed: Yes (no changes) Allergy and home medication list: Allergies erythromycin base [Erythromycin Base] Allergy (Verified 11/21/23 10:11) Hives hydrocodone bitartrate * [From Vicodin] Allergy (Verified 11/21/23 10:11) Hives levofloxacin [From Levaquin] Allergy (Verified 11/21/23 10:11) Itching penicillin G Allergy (Verified 11/21/23 10:11) Anaphylaxis propoxyphene HCl * [From Darvon] Allergy (Verified 11/21/23 10:11) Hives adhesive tape Adverse Reaction (Intermediate, Verified 11/21/23 10:11) Paper tape removes skin latex Adverse Reaction (Verified 11/21/23 10:11) Itching Review of Systems Review of systems same as previous: Yes (NO CHANGE) Physical Exam Vital signs obtained and entered by: AMANDA Kate MA Blood Pressure: 113/57 (LEFT WRIST) Cuff size: SMALL Heart Rate: 78 O2 Saturation: 96 Height: 5 ft 1 in Weight: 309 lb (from last visit) Body Mass Index: 58.3 BMI Classification: Morbidly Obese Impression and Plan 1. Obstructive Sleep Apnea-Hypopnea Syndrome, severe. She returns today after titration study to find optimal pressure to control sleep apnea. Her optimal pressure appeared to be 14 cmH2O with average residual at 1. The patients pressure will be changed to CPAP 14 cmH20. Patient advised to contact me if pressure change is uncomfortable so that it can be adjusted. Goals for apnea control discussed. She does like the Dreamwear nasal mask but it leaks a lot around the mask cushion. She tried a few the night of the study but did not feel she liked their fit any better. She has tried a nasal pillows but could not find one to fit without leaking. I showed her a F&P Brevida nasal pillows mask and she felt it might work for her. I will add a mask refitting for this mask to her prescription. Patient's apnea severity and rationale for treatment to reduce apnea, improve sleep quality and reduce cardiovascular and cerebrovascular events was reviewed. I also reviewed the benefit of consistent device use of CPAP for hypertension, arrhythmia, diabetes, gastric reflux. 2. Atrial fibrillation. Patient was noted to have atrial fibrillation with cardiac monitoring during titration study. Patient does have a history of heart arrhythmias. 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 3. Obesity, unspecified. Currently patients BMI is 58.3. Obesity increases the risk of apnea, CPAP pressure requirements and overall health risks especially cardiovascular and diabetes. Thus patient is advised to lose weight. * Change CPAP pressure to 14 cmH2O * Notify me if snoring with mask or feeling that the pressure is too much or too little * Attempt to lose weight * Call this office if any problems using CPAP * Return for follow up in 3 months, or sooner if concerns arise Adjust device pressure to (cmH2O): 14 Counseling Topics: Weight loss health impact Prescriptions: Other (mask refitting for Brevida nasal pillows mask) Follow up with Sleep Care in: 3 months Visit Type: In Office Time Spent with Patient (minutes): 21 Provider Statement: I spent 100% of the Face to Face Visit with the patient with greater than 50% spent counseling the patient and coordination of care.
[2023-12-02 09:57] VITALS: BP 113/57; O2SAT 96
== END 2023-12-02 09:23 | disposition home or self-care (01) ==
LOC: SC 09:22
PROVIDERS: ATTEND Nurse Practitioner Family
DX: G47.33 Obstructive sleep apnea (adult) (pediatric) (principal); I48.91 Unspecified atrial fibrillation; E66.9 Obesity, unspecified; Z68.43 Body mass index [BMI] 50.0-59.9, adult
CPT/HCPCS: 99213; G0463; 99212

== ENCOUNTER 2023-12-30 12:07 | Outpatient (CLI) | payer MEDICARE, OTHER ==
[2023-12-30 18:04] LABS: BASOPHILS # (AUTO) 0.1 10^3/uL (0.0-0.1); BASOPHILS % (AUTO) 0.5 %; EOSINOPHILS # (AUTO) 0.3 10^3/uL (0.0-0.7); HCT - HEMATOCRIT 30.3 % (37.0-47.0); HGB - HEMOGLOBIN 9.6 g/dL (12.0-16.0); LYMPHOCYTES # (AUTO) 1.2 10^3/uL (1.5-3.5); LYMPHOCYTES % (AUTO) 12.3 %; MEAN CORPUSCULAR HEMOGLOBIN 29.7 pg (27.0-31.0); MEAN CORPUSCULAR HGB CONC 31.7 g/dL (32.0-36.0); MEAN CORPUSCULAR VOLUME 93.8 fL (81.0-99.0); MONOCYTES # (AUTO) 0.6 10^3/uL (0.0-1.0); MONOCYTES % (AUTO) 6.1 %; NEUTROPHILS # (AUTO) 7.7 10^3/uL (1.5-6.6); NEUTROPHILS % (AUTO) 77.8 %; PLT - PLATELET COUNT 208 10^3/uL (130-450); RED BLOOD COUNT 3.23 10^6/uL (4.20-5.40); RED CELL DISTRIBUTION WIDTH 17.7 % (12.0-15.0); WHITE BLOOD COUNT 9.9 x10^3/uL (4.8-10.8)
[2023-12-30 18:20] LABS: ALBUMIN 3.8 g/dL (3.2-5.5); ALBUMIN/GLOBULIN RATIO 1.4 (1.0-2.2); ALKALINE PHOSPHATASE 99 IU/L (42-121); ALT ALANINE AMINOTRANSFERASE 15 IU/L (10-60); AST ASPARTATE AMINOTRANSFERASE 15 IU/L (10-42); BILIRUBIN,TOTAL 1.3 mg/dL (0.2-1.0); BUN - BLOOD UREA NITROGEN 59 mg/dL (6-20); CALCIUM 9.6 mg/dL (8.5-10.3); CARBON DIOXIDE - CO2 28 mmol/L (21-32); CHLORIDE 100 mmol/L (101-111); CHOL/HDL RATIO 1.7 (<4.4); CHOLESTEROL 117 mg/dL; CREATININE 2.5 mg/dL (0.6-1.3); GFR - MDRD 19 (>89); GLUCOSE 206 mg/dL (74-104); HDL CHOLESTEROL 67 mg/dL; LDL CHOLESTEROL,CALCULATED 34 mg/dL; LDL/HDL RATIO 0.5 (<4.4); POTASSIUM 4.5 mmol/L (3.5-4.5); SODIUM 138 mmol/L (135-145); TOTAL PROTEIN 6.6 g/dL (6.4-8.9); TRIGLYCERIDES 80 mg/dL (48-352); VLDL CHOLESTEROL 16 mg/dL
[2023-12-30 21:03] LABS: ESTIMATED AVERAGE GLUCOSE 157 mg/dL (70-100); HEMOGLOBIN A1c% 7.1 % (4.27-6.07)
== END 2023-12-30 12:08 | disposition home or self-care (01) ==
LOC: LAB.N 12:07
PROVIDERS: ATTEND Nurse Practitioner Family
DX: I12.9 Hypertensive chronic kidney disease with stage 1 through stage 4 chronic kidney disease, or unspecified chronic kidney disease (principal); E11.22 Type 2 diabetes mellitus with diabetic chronic kidney disease; N18.4 Chronic kidney disease, stage 4 (severe); E78.5 Hyperlipidemia, unspecified
CPT/HCPCS: 36415; 80053; 80061; 83036; 83721; 85025

== ENCOUNTER 2024-01-24 05:12 | Outpatient (CLI) | payer MEDICARE, OTHER | END 2024-01-24 05:13 | disposition critical access hospital (66) | LOC: EMS 05:12 | DX: M25.512 Pain in left shoulder (principal); M25.532 Pain in left wrist; R07.81 Pleurodynia; W01.0XXA Fall on same level from slipping, tripping and stumbling without subsequent striking against object, initial encounter; Y92.009 Unspecified place in unspecified non-institutional (private) residence as the place of occurrence of the external cause; Z79.01 Long term (current) use of anticoagulants | CPT/HCPCS: A0425; A0429 ==

== ENCOUNTER 2024-01-24 05:31 | Emergency (ER) | payer MEDICARE, OTHER ==
--- NOTE | 2024-01-24 07:30 | ED Physician Documentation ---
History of Present Illness - Stated complaint Stated Complaint: FALL/L SHOULDER PX - Chief complaint Chief Complaint: Trauma Ext - History obtained from History obtained from: Patient, Family - Additonal information Additional information: The patient comes to the emergency department chief complaint of ground-level fall. She states she slipped and fell and landed on her left side then "balanced" and hit her right side. She is complaining of bilateral rib pain, left clavicular pain, and left wrist pain. She states she does not have any pain in her hips. She denies any lower extremity pain. She thinks she felt a "pop" in her wrist when she caught herself. No other complaints at this time. 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 HEENT: Cataracts - Present Medications Home Medications: Ambulatory Orders Medication Instructions Recorded Confirmed Atorvastatin Calcium [Lipitor] 10 mg PO QPM 05/03/14 10/18/23 Colchicine [Colcrys] 0.6 mg PO TID PRN 05/03/14 10/18/23 Telmisartan [Micardis] 40 mg PO DAILY 05/03/14 10/18/23 allopurinoL [Allopurinol] 300 mg PO DAILY 05/03/14 10/18/23 Ginkgo Biloba [place] Extract [Ginkgo] 60 mg ORAL DAILY 06/25/14 10/18/23 Insulin Glargine,Hum.rec.anlog 50 units SQ DAILY PM 04/16/15 10/18/23 [Lantus] Apixaban [Eliquis] 5 mg PO BID 04/11/19 10/18/23 Furosemide 20 mg PO Q2D 04/11/19 10/18/23 Gabapentin 900 - 1,200 mg PO BID 04/11/19 10/18/23 L.acid/L.casei/B.bif/B.sloane/Fos 1 each PO DAILY 04/11/19 10/18/23 [Probiotic Blend Capsule] Metoprolol Succinate [Toprol Xl] 50 mg PO DAILY 04/11/19 10/18/23 Pantoprazole Sodium 40 mg PO DAILY 04/11/19 10/18/23 Potassium Chloride [Klor-Con 10] 10 meq PO DAILY 04/11/19 10/18/23 Cholecalciferol (Vitamin D3) 5,000 unit PO DAILY 05/26/20 10/18/23 [Vitamin D3] Cyanocobalamin (Vitamin B-12) 5,000 mcg PO DAILY 05/26/20 10/18/23 [Vitamin B-12] Dulaglutide [Trulicity] 3 mg SQ Q7D 12/02/21 10/18/23 Doxycycline Hyclate 100 mg PO BID #8 cap 12/04/21 10/18/23 Saccharomyces Boulardii [Florastor] 250 mg PO BIDWM #8 cap 12/04/21 10/18/23 Insulin Aspart [NovoLOG] 18 units SUBQ TIDWM 03/29/23 10/18/23 clindamycin HCL [Clindamycin HCl] 300 mg PO QID 7 Days #28 cap 04/14/23 10/18/23 Tramadol HCl 25 mg PO Q6H PRN #20 tab 01/24/24 - Allergies Allergies/Adverse Reactions: Allergies Allergy/AdvReac Type Severity Reaction Status Date / Time erythromycin base Allergy Hives Verified 01/24/24 05:38 [Erythromycin Base] hydrocodone bitartrate * Allergy Hives Verified 01/24/24 05:38 [From Vicodin] levofloxacin [From Levaquin] Allergy Itching Verified 01/24/24 05:38 penicillin G Allergy Anaphylaxis Verified 01/24/24 05:38 propoxyphene HCl * Allergy Hives Verified 01/24/24 05:38 [From Darvon] adhesive tape AdvReac Intermediate Paper tape Verified 01/24/24 05:38 removes skin latex AdvReac Itching Verified 01/24/24 05:38 - Social History Does the pt smoke?: No Smoking Status: Never smoker Does the pt drink ETOH?: No Does the pt have substance abuse?: No - Immunizations Immunizations are current?: Yes PD ED PE NORMAL - Vitals Vital signs reviewed: Yes - General General: Alert and oriented X 3, No acute distress, Well developed/nourished, O ther (Morbidly obese patient) - HEENT HEENT: Atraumatic, EOMI, Moist mucous membranes - Neck Neck: Supple, no meningeal sign, No bony TTP - Cardiac Cardiac: RRR, No murmur - Respiratory Respiratory: No respiratory distress, Clear bilaterally - Abdomen Abdomen: Soft, Non tender, Non distended - Back Back: No spinal TTP - Derm Derm: Normal color, Warm and dry, No rash - Extremities Extremities: Other (Left wrist appears to have dorsal deformity With tenderness in same area. No hand deformity or swelling. No tenderness or deformity at any point over the lower extremities. Right upper extremity is also normal.) - Neuro Neuro: Alert and oriented X 3, ammonia worker 2-12 intact, No motor deficit, No sensory deficit, Normal speech, Other (Grossly intact) - Psych Psych: Normal mood, Normal affect - Free text exam Free text exam: Tenderness to palpation over bilateral lateral rib cage. No step-off. Tenderness over left clavicle without deformity. Results - Vitals Vitals: Vital Signs - 24 hr 01/24/24 01/24/24 01/24/24 07:37 07:45 08:39 Heart Rate 85 92 Respiratory 18 Rate Blood Pressure 123/68 O2 Saturation 97 87 L 97 If not protocol 1 1 : Oxygen Flow, liters/minute 01/24/24 09:58 Heart Rate 78 Respiratory 16 Rate Blood Pressure 128/76 O2 Saturation 95 If not protocol : Oxygen Flow, liters/minute Oxygen O2 Source Nasal cannula Oxygen Flow Rate 1 - Rads (name of study) Left wrist x-ray Relevant Findings:: Final report received, See rad report (Wrist fourth and fifth metacarpal fractures noted.) CT chest Relevant Findings:: Final report received, See rad report (No fractures) PD Medical Decision Making - ED course Complexity details: reviewed results, re-evaluated patient, considered differential, d/w patient, d/w family ED course: Patient initially declined analgesia but later requested something for pain. I ordered imaging of all of the areas where the patient was complaining of pain and where she was tender. It turned out she did not have a wrist fracture and what appeared to be deformity was the contour of her soft tissue naturally. However, she was found to have metacarpal fractures that showed up on the x-ray, despite the patient feeling the pain in her wrist and not in her hand. A CT of the chest was performed to evaluate all of the areas where the patient had pain involving the chest/thorax and was found to be negative. I did order a dedicated left hand x-ray and this is pending at the end of my shift. The patient was signed out to my colleague Dr. Connolly, pending hand x-ray with anticipation of splinting and discharge home. Patient is feeling much better after pain medicine and has no other complaints. Departure - Departure Disposition: 01 Home, Self Care Clinical Impression: Bilateral contusion of ribs, Multiple fractures of metacarpal bones Left wrist sprain Qualifiers: Encounter type: initial encounter Qualified Code(s): S63.502A - Unspecified sprain of left wrist, initial encounter Condition: Stable Instructions: ED Fx Hand Closed, ED Contusion Rib, ED Sprain Wrist Follow-Up: Manuel Ulloa MD [Provider Admit Priv/Credential] - Kwasi Marinelli MD [Provider Admit Priv/Credential] - Prescriptions: Tramadol HCl 25 mg PO Q6H PRN #20 tab PRN Reason: Pain 5-7 Comments: Your CT scan overall looks good from a trauma perspective and does not show any broken bones. Your wrist x-ray did not show. Your hand x-ray shows 3 broken bones (3rd,45th, 5th metaarpals). You have been placed in a splint for this and will need to follow-up with orthopedics. Your prescription for pain medication has been electronically transmitted to the [facility] pharmacy in [place]. Please call to make the next available appointment to follow-up in orthopedic clinic. Forms: PCP List Discharge Date/Time: 01/24/24 09:58
[2024-01-24] MEDS: KETOROLAC 60 MG/2 ML VIAL IM STA (07:46)
[2024-01-24] MEDS: HYDROmorphone 1 MG/ML CARPUJECT IM STA (07:47)
--- NOTE | 2024-01-24 07:51 | XRAY Report ---
PROCEDURE: Wrist 3+V LT INDICATIONS: fall/pain/deformity TECHNIQUE: 3 views of the wrist were acquired. COMPARISON: None. FINDINGS: Bones: No acute displaced fracture or dislocation of the wrist. Mild scattered degenerative changes. Mildly displaced fractures of the fourth and fifth metacarpal shafts seen at the edge of the film. Questionable small bone fragment seen ventral to the carpal bones, age indeterminate. Soft tissues: No suspicious calcifications. IMPRESSION: Partially seen mildly displaced fourth and fifth metacarpal shaft fractures. Questionable small bone fragment ventral to the carpal bones, age indeterminate. No definite acute fr acture or dislocation of the wrist. If there is high concern for occult injury, consider repeat radio graphy or cross-sectional imaging. No significant discrepancy from prelim report. Reviewed by: Clif Jhaveri MD on 01/24/2024 7:49 AM PDT Approved by: Clif Jhaveri MD on 01/24/2024 7:49 AM PDT Station ID: [id number]
--- NOTE | 2024-01-24 08:07 | XRAY Report ---
PROCEDURE: Hand 3+V LT INDICATIONS: fracture TECHNIQUE: 3 views of the hand(s) acquired. COMPARISON: 01/24/2024. FINDINGS: Bones: Mildly displaced fractures of the third, fourth and fifth metacarpal shafts. Diffusely decrea sed osseous mineralization.. No suspicious bony lesions. Soft tissues: No suspicious soft tissue calcifications or masses. IMPRESSION: Mildly displaced fractures of the third, fourth and fifth metacarpal shafts. Reviewed by: Jeremy Stinson MD on 01/24/2024 8:06 AM PDT Approved by: Jeremy Stinson MD on 01/24/2024 8:06 AM PDT Station ID: [id number]
--- NOTE | 2024-01-24 08:21 | CT Report ---
PROCEDURE: Chest WO INDICATIONS: L clavicle/bilat rib pn after fall TECHNIQUE: A CT scan of the chest was performed. Intravenous contrast media was not administered. Images were re corded and evaluated at appropriate window settings. Reformats: axial MIP of the chest, coronal and s agittal. For radiation dose reduction, the following was used: automated exposure control, adjustment of mA and/or kV according to patient size. COMPARISON: None. FINDINGS: Image quality: Diagnostic Lungs and pleura:Moderate right and small left effusions. Mild underlying groundglass opacities and a telectasis. Micronodules are present. None are overtly suspicious. Mediastinum, heart, and esophagus: Small hiatal hernia. Coronary calcifications. Prominent mediastina l hilar lymph nodes are present, nonspecific, not enlarged by size criteria, for example AP window no de measures 9 mm in short axis. These may be reactive, attention on follow-up Chest wall and thyroid: Unremarkable chest wall and thyroid Upper abdomen: No gross abnormality on these noncontrast images. There is a right 0.9 cm adrenal nodu le. Cholecystectomy clips. Bones: Degenerative changes. No acute displaced fracture is identified. A left fifth rib bone island is seen. There are bilateral shoulder degenerative changes and superior subluxation of the humeral he ads, suggestive of rotator cuff pathology. IMPRESSION: Moderate right and mild left pleural effusions. Mild underlying groundglass opacities, possibly edema or infection/inflammation, and atelectasis. Consider future imaging surveillance to assess for resol ution. No pneumothorax. No acute displaced osseous injury. Superior subluxation of the bilateral humeral heads, suggestive of chronic rotator cuff pathology. If there is high concern for further derangement, consider MRI evaluation. No discrepancy from the preliminary report regarding acute findings. This was marked as a result for nonurgent/outpatient follow-up in PACS. Reviewed by: Clif Jhaveri MD on 01/24/2024 8:20 AM PDT Approved by: Clif Jhaveri MD on 01/24/2024 8:20 AM PDT Station ID: [id number]
--- NOTE | 2024-01-24 09:13 | XRAY Report ---
PROCEDURE: Hand 3+V LT INDICATIONS: rings removed/4th-5th fx TECHNIQUE: 3 views of the hand(s) acquired. COMPARISON: Same day x-ray. FINDINGS: Bones: Again noted mildly fractures of the third, fourth and fifth metacarpal shafts. Diffusely decr eased osseous position. No suspicious bony lesions. Soft tissues: No suspicious soft tissue calcifications or masses. IMPRESSION: Again noted mildly displaced fractures of the third, fourth and fifth metacarpal shafts. Reviewed by: Jeremy Stinson MD on 01/24/2024 9:12 AM PDT Approved by: Jeremy Stinson MD on 01/24/2024 9:12 AM PDT Station ID: [id number]
--- NOTE | 2024-01-24 09:43 | ED Physician Documentation ---
ED Addendum - Addendum Addendum: 01/24/24 Patient signed out to me at shift change from Dr. Connor to follow-up on de dicated hand x-ray as metacarpal fractures were seen on wrist view. Hand x-rays were performed but patient's ring was left on. We were unable to get the rings off so I did have to cut the rings with the ring rescue device. Both rings were removed in their entirety and placed into a specimen cup for patient to take home. Dedicated hand x-ray was obtained which shows metacarpal fractures to the third fourth and fifth metacarpals. She was placed into a volar splint. Discharge medications and prescriptions per Dr. Connor. Departure - Departure Disposition: Home, Self Care Clinical Impression: Bilateral contusion of ribs Left wrist sprain Qualifiers: Encounter type: initial encounter Qualified Code(s): S63.502A - Unspecified sprain of left wrist, initial encounter Multiple fractures of metacarpal bones Qualifiers: Encounter type: initial encounter Fracture type: closed Qualified Code(s): S62.309A - Unspecified fracture of unspecified metacarpal bone, initial encounter for closed fracture Condition: Stable Instructions: ED Fx Hand Closed, ED Contusion Rib, ED Sprain Wrist Follow-Up: Manuel Ulloa MD [Provider Admit Priv/Credential] - Kwasi Marinelli MD [Provider Admit Priv/Credential] - Prescriptions: Tramadol HCl 25 mg PO Q6H PRN #20 tab PRN Reason: Pain 5-7 Comments: Your CT scan overall looks good from a trauma perspective and does not show any broken bones. Your wrist x-ray did not show. Your hand x-ray shows 3 broken bones (3rd,45th, 5th metaarpals). You have been placed in a splint for this and will need to follow-up with orthopedics. Your prescription for pain medication has been electronically transmitted to the [facility] pharmacy in [place]. Please call to make the next available appointment to follow-up in orthopedic clinic. Forms: PCP List Discharge Date/Time: 01/24/24 09:58
[2024-01-24 10:03] VITALS: BP 128/76; O2SAT 95
== END 2024-01-24 09:58 | disposition home or self-care (01) ==
LOC: EDUNIT# → ED 05:31
DX: S20.213A Contusion of bilateral front wall of thorax, initial encounter (principal); S62.323A Displaced fracture of shaft of third metacarpal bone, left hand, initial encounter for closed fracture; S62.325A Displaced fracture of shaft of fourth metacarpal bone, left hand, initial encounter for closed fracture; S62.327A Displaced fracture of shaft of fifth metacarpal bone, left hand, initial encounter for closed fracture; W01.0XXA Fall on same level from slipping, tripping and stumbling without subsequent striking against object, initial encounter; S63.502A Unspecified sprain of left wrist, initial encounter; I10 Essential (primary) hypertension; E78.00 Pure hypercholesterolemia, unspecified; I48.91 Unspecified atrial fibrillation; E11.42 Type 2 diabetes mellitus with diabetic polyneuropathy; Z79.899 Other long term (current) drug therapy; Z79.4 Long term (current) use of insulin; Z79.01 Long term (current) use of anticoagulants; Z91.040 Latex allergy status
CPT/HCPCS: 29125; 71250; 73110; 73130; 96372; 99284; J1170

== ENCOUNTER 2024-01-24 11:17 | Outpatient (CLI) | payer MEDICARE, OTHER | END 2024-01-24 11:18 | disposition critical access hospital (66) | LOC: EMS 11:17 | DX: S99.911A Unspecified injury of right ankle, initial encounter (principal); S82.891B Other fracture of right lower leg, initial encounter for open fracture type I or II; X58.XXXA Exposure to other specified factors, initial encounter; Y92.008 Other place in unspecified non-institutional (private) residence as the place of occurrence of the external cause; Z91.81 History of falling; Z79.01 Long term (current) use of anticoagulants; M25.512 Pain in left shoulder; M25.532 Pain in left wrist; R07.81 Pleurodynia; W01.0XXA Fall on same level from slipping, tripping and stumbling without subsequent striking against object, initial encounter; Y92.009 Unspecified place in unspecified non-institutional (private) residence as the place of occurrence of the external cause | CPT/HCPCS: A0425; A0427; A0429 ==

== ENCOUNTER 2024-01-24 11:40 | Emergency (ER) | payer MEDICARE, OTHER ==
[2024-01-24] MEDS: HYDROmorphone 0.5 MG/0.5 ML SYRINGE IVP STA (12:05)
[2024-01-24 12:14] LABS: BASOPHILS % (AUTO) 0.4 %; EOSINOPHILS # (AUTO) 0.1 10^3/uL (0.0-0.7); EOSINOPHILS % (AUTO) 1.3 %; HCT - HEMATOCRIT 32.2 % (37.0-47.0); HGB - HEMOGLOBIN 9.7 g/dL (12.0-16.0); LYMPHOCYTES # (AUTO) 1.6 10^3/uL (1.5-3.5); LYMPHOCYTES % (AUTO) 15.9 %; MEAN CORPUSCULAR HGB CONC 30.1 g/dL (32.0-36.0); MEAN CORPUSCULAR VOLUME 96.1 fL (81.0-99.0); MEAN PLATELET VOLUME 10.4 fL (7.9-10.8); MONOCYTES # (AUTO) 0.8 10^3/uL (0.0-1.0); MONOCYTES % (AUTO) 7.4 %; NEUTROPHILS # (AUTO) 7.7 10^3/uL (1.5-6.6); NEUTROPHILS % (AUTO) 74.4 %; PLT - PLATELET COUNT 250 10^3/uL (130-450); RED BLOOD COUNT 3.35 10^6/uL (4.20-5.40); RED CELL DISTRIBUTION WIDTH 17.5 % (12.0-15.0); WHITE BLOOD COUNT 10.3 x10^3/uL (4.8-10.8)
[2024-01-24 12:17] LABS: INR 1.9 (0.8-1.2)
[2024-01-24 12:27] LABS: ALBUMIN 3.7 g/dL (3.2-5.5); ALBUMIN/GLOBULIN RATIO 1.2 (1.0-2.2); CALCIUM 9.7 mg/dL (8.5-10.3); TOTAL PROTEIN 6.7 g/dL (6.4-8.9)
[2024-01-24] MEDS: HYDROmorphone 1 MG/ML CARPUJECT IVP STA (12:35)
--- NOTE | 2024-01-24 13:10 | XRAY Report ---
PROCEDURE: Ankle 3+V RT INDICATIONS: open FX TECHNIQUE: 3 views of the ankle were acquired. COMPARISON: None. FINDINGS: Bones: Limited exam secondary to overlying material and positioning. Displaced fracture of the dista l fibular shaft and likely metaphysis. Medial dislocation of the tibia with respect to the talus.. A nkle mortise is normally aligned. No suspicious bony lesions. Soft tissues: No tibiotalar joint effusion. Achilles tendon appears normal. IMPRESSION: Limited exam secondary to overlying material and positioning. Displaced fracture of the distal fibula r shaft and possibly the fibular metaphysis. Dislocation of the tibiotalar joint with severe medial t ranslation of the tibia with respect to the talus. Reviewed by: Jeremy Stinson MD on 01/24/2024 1:09 PM PDT Approved by: Jeremy Stinson MD on 01/24/2024 1:09 PM PDT Station ID: [id number]
--- NOTE | 2024-01-24 13:12 | XRAY Report ---
PROCEDURE: Pelvis 1-2V INDICATIONS: fall TECHNIQUE: 1 view(s) of the pelvis acquired. COMPARISON: None. FINDINGS: Bones: Limited exam secondary to body habitus and overlying material. No fractures or dislocations. No suspicious bony lesions. Soft tissues: Visualized bowel gas pattern is normal. No suspicious soft tissue calcifications. IMPRESSION: Limited exam secondary to body habitus and overlying material. No definite fracture is seen. Consider repeat radiograph or cross-sectional imaging if there is high concern for fracture. Reviewed by: Jeremy Stinson MD on 01/24/2024 1:10 PM PDT Approved by: Jeremy Stinson MD on 01/24/2024 1:10 PM PDT Station ID: [id number]
[2024-01-24] MEDS: ceFAZolin 3 GM in SODIUM CHLORIDE 0.9% 100ML 100 ML IV STA (13:14)
[2024-01-24 13:18] VITALS: BP 97/60; O2SAT 98
--- NOTE | 2024-01-24 13:27 | XRAY Report ---
PROCEDURE: Ankle 3+V RT INDICATIONS: post reduction TECHNIQUE: 3 views of the ankle were acquired. COMPARISON: Right ankle x-ray 01/24/2024. FINDINGS: Bones: Comminuted displaced fracture of the distal fibular shaft. Dislocation of the tibiotalar join t with severe medial translation of the tibia with suspected talus. Possible posterior malleolus frac ture. Ankle mortise is normally aligned. No suspicious bony lesions. Soft tissues: No tibiotalar joint effusion. Achilles tendon appears normal. IMPRESSION: 1.Comminuted and displaced fracture of the distal fibular shaft. 2.Dislocation of the tibiotalar joint. 3.Possible posterior malleolus fracture. Reviewed by: Jeremy Stinson MD on 01/24/2024 1:25 PM PDT Approved by: Jeremy Stinson MD on 01/24/2024 1:25 PM PDT Station ID: [id number]
--- NOTE | 2024-01-24 14:03 | ED Physician Documentation ---
PD HPI LOWER EXT INJURY - Stated complaint Stated Complaint: FALL, ANKLE INJ - Chief complaint Chief Complaint: Trauma Ext - History obtained from History obtained from: Patient - Additional information Additional information: Patient is a 78-year-old female with a history of A-fib on Eliquis presenting for evaluation of a open right ankle fracture. Patient was seen In the early hours of the morning after a slip and fall at home. At that time she was primarily complaining of pain to the left wrist and hand and was found to have metacarpal fractures to the left hand and a splint was placed. She additionally had a CT scan of the chest at that time which did not show any abnormalities. She denies hitting her head or having LOC. She was discharged home and when she arrived at home she noted that she was having pain in the right ankle so EMS was again called because patient wanted to come back to be reevaluated. EMS states that they did not note any deformities to either ankle and did have her put weight on the left ankle which she was able to do. When she put weight down on the right ankle there was immediate pain and deformity with an open fracture. Patient did receive 50 mcg of fentanyl and round. Her last dose of Eliquis was last night. Review of Systems Musculoskeletal: reports: Extremity pain PD PAST MEDICAL HISTORY - Past Medical History Cardiovascular: Hypertension, High cholesterol, Atrial fibrillation Respiratory: Pneumonia, Sleep apnea, CPAP use Neuro: Peripheral neuropathy Endocrine/Autoimmune: Type 2 diabetes GI: GERD, Hiatal hernia, Chronic diarrhea, Pancreatitis : Incontinence, Frequency HEENT: Chronic sinusitis, Other Psych: Depression, Anxiety, Claustrophobia Musculoskeletal: Osteoarthritis, Gout Derm: None, Rosacea - Past Surgical History Past Surgical History: Yes General: Cholecystectomy Ortho: Knee replacement, 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 HEENT: Cataracts - Present Medications Home Medications: Ambulatory Orders Medication Instructions Recorded Confirmed Atorvastatin Calcium [Lipitor] 10 mg PO QPM 05/03/14 10/18/23 Colchicine [Colcrys] 0.6 mg PO TID PRN 05/03/14 10/18/23 Telmisartan [Micardis] 40 mg PO DAILY 05/03/14 10/18/23 allopurinoL [Allopurinol] 300 mg PO DAILY 05/03/14 10/18/23 Ginkgo Biloba [place] Extract [Ginkgo] 60 mg ORAL DAILY 06/25/14 10/18/23 Insulin Glargine,Hum.rec.anlog 50 units SQ DAILY PM 04/16/15 10/18/23 [Lantus] Apixaban [Eliquis] 5 mg PO BID 04/11/19 10/18/23 Furosemide 20 mg PO Q2D 04/11/19 10/18/23 Gabapentin 900 - 1,200 mg PO BID 04/11/19 10/18/23 L.acid/L.casei/B.bif/B.sloane/Fos 1 each PO DAILY 04/11/19 10/18/23 [Probiotic Blend Capsule] Metoprolol Succinate [Toprol Xl] 50 mg PO DAILY 04/11/19 10/18/23 Pantoprazole Sodium 40 mg PO DAILY 04/11/19 10/18/23 Potassium Chloride [Klor-Con 10] 10 meq PO DAILY 04/11/19 10/18/23 Cholecalciferol (Vitamin D3) 5,000 unit PO DAILY 05/26/20 10/18/23 [Vitamin D3] Cyanocobalamin (Vitamin B-12) 5,000 mcg PO DAILY 05/26/20 10/18/23 [Vitamin B-12] Dulaglutide [Trulicity] 3 mg SQ Q7D 12/02/21 10/18/23 Doxycycline Hyclate 100 mg PO BID #8 cap 12/04/21 10/18/23 Saccharomyces Boulardii [Florastor] 250 mg PO BIDWM #8 cap 12/04/21 10/18/23 Insulin Aspart [NovoLOG] 18 units SUBQ TIDWM 03/29/23 10/18/23 clindamycin HCL [Clindamycin HCl] 300 mg PO QID 7 Days #28 cap 04/14/23 10/18/23 Tramadol HCl 25 mg PO Q6H PRN #20 tab 01/24/24 - Allergies Allergies/Adverse Reactions: Allergies Allergy/AdvReac Type Severity Reaction Status Date / Time erythromycin base Allergy Hives Verified 01/24/24 05:38 [Erythromycin Base] hydrocodone bitartrate * Allergy Hives Verified 01/24/24 05:38 [From Vicodin] levofloxacin [From Levaquin] Allergy Itching Verified 01/24/24 05:38 penicillin G Allergy Anaphylaxis Verified 01/24/24 05:38 propoxyphene HCl * Allergy Hives Verified 01/24/24 05:38 [From Vianca] adhesive tape AdvReac Intermediate Paper tape Verified 01/24/24 05:38 removes skin latex AdvReac Itching Verified 01/24/24 05:38 - Social History Does the pt smoke?: No Smoking Status: Never smoker Does the pt drink ETOH?: No Does the pt have substance abuse?: No - Immunizations Immunizations are current?: Yes PD ED PE NORMAL - General General: Alert and oriented X 3, No acute distress, Well developed/nourished - HEENT HEENT: Atraumatic, Moist mucous membranes, Pharynx benign - Neck Neck: Supple, no meningeal sign - Cardiac Cardiac: Strong equal pulses (Irregularly irregular, normal rate) - Respiratory Respiratory: No respiratory distress, Clear bilaterally - Abdomen Abdomen: Soft, Non tender - Extremities Extremities: Other (Open fracture to right ankle, no pain on range of motion of left lower extremity. Left hand is in a splint) - Neuro Neuro: Alert and oriented X 3, No motor deficit, Normal speech Results - Vitals Vitals: Vital Signs - 24 hr 01/24/24 01/24/24 01/24/24 11:45 12:23 12:30 Temperature 36.7 C Heart Rate 91 91 97 Respiratory 16 16 14 Rate Blood Pressure 121/47 L 108/40 L 108/40 L O2 Saturation 93 92 97 If not protocol 2 2 : Oxygen Flow, liters/minute 01/24/24 13:00 Temperature Heart Rate 100 Respiratory 18 Rate Blood Pressure 97/60 O2 Saturation 98 If not protocol 2 : Oxygen Flow, liters/minute Oxygen O2 Source Nasal cannula - Labs Labs: Laboratory Tests 01/24/24 01/24/24 01/24/24 12:02 12:02 12:02 WBC 10.3 RBC 3.35 L Hgb 9.7 L Hct 32.2 L MCV 96.1 MCH 29.0 MCHC 30.1 L RDW 17.5 H Plt Count 250 MPV 10.4 Neut # (Auto) 7.7 H Lymph # (Auto) 1.6 [place] # (Auto) 0.8 Eos # (Auto) 0.1 Baso # (Auto) 0.0 Absolute Nucleated RBC 0.00 Nucleated RBC % 0.0 PT 20.0 H INR 1.9 H Sodium 137 Potassium 4.0 Chloride 94 L Carbon Dioxide 34 H Anion Gap 9.0 BUN 34 H Creatinine 2.0 H Estimated GFR (MDRD) 24 L Glucose 328 H Calcium 9.7 Total Bilirubin 2.0 H AST 15 ALT 11 Alkaline Phosphatase 102 Total Protein 6.7 Albumin 3.7 Globulin 3.0 Albumin/Globulin Ratio 1.2 Procedures - Reduction Body part reduced: Right, Ankle Fracture or dislocation: Fracture dislocation Anesthesia: Dilaudid Reduction aftercare: NV intact, Alignment improved (Post reduction XRay with SLight improvement in alignment but still with significant deformity), Splint applied, Patient tolerated well, Other (Performed with Dr. Marinelli (Orthopedic Surgery)) PD Medical Decision Making - ED course Complexity details: reviewed results, re-evaluated patient, d/w patient, d/w middleware consultant ED course: Patient is a 78-year-old female presenting with an open right ankle fracture. An x-ray was obtained which confirms fracture and dislocation. Discussed with on-call orthopedic surgery, Dr. Marinelli. He was gracious enough to come to the emergency department to evaluate the patient. 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 Given her comorbidities she is not an appropriate candidate for anesthesia that would be. Dr. Gay recommends transfer to tertiary care facility such as [facility]. Dr. Gay did present to the emergency department and with this assistance attempted reduction of the right ankle fracture dislocation. There is slight improvement and a splint was applied with postredu ction x-rays reviewed. I did also review these x-rays with Dr. Marinelli who states that there is still significant deformity but recommends at this time the best thing is for patient to get to [facility] where definitive care can be taken.Patient was given divided doses of Dilaudid for pain. A CBC and chemistries reviewed.Hemoglobin is 9.7 which is not significantly changed from prior labs. She has chronic kidney disease.INR is 1.9. Her tetanus is up-to-date. She was given 3 g of IV Ancef. As discussed with emergency physician at [facility], Dr. Hogan who graciously accepts patient in transfer. Patient transported via [facility]. Departure - Departure Disposition: 02 Transfer Acute Care Hosp Clinical Impression: Open right trimalleolar fracture Qualifiers: Encounter type: initial encounter Condition: Fair Forms: PCP List Discharge Date/Time: 01/24/24 13:28
== END 2024-01-24 13:28 | disposition short-term general hospital (02) ==
LOC: EDUNIT# → ED 11:40
DX: S82.851B Displaced trimalleolar fracture of right lower leg, initial encounter for open fracture type I or II (principal); I48.91 Unspecified atrial fibrillation; Z79.01 Long term (current) use of anticoagulants; G47.33 Obstructive sleep apnea (adult) (pediatric); Z68.44 Body mass index [BMI] 60.0-69.9, adult; E11.22 Type 2 diabetes mellitus with diabetic chronic kidney disease; I12.9 Hypertensive chronic kidney disease with stage 1 through stage 4 chronic kidney disease, or unspecified chronic kidney disease; N18.9 Chronic kidney disease, unspecified; Z79.4 Long term (current) use of insulin; X50.0XXA Overexertion from strenuous movement or load, initial encounter; Y93.89 Activity, other specified; Y92.810 Car as the place of occurrence of the external cause; S20.213A Contusion of bilateral front wall of thorax, initial encounter; S62.323A Displaced fracture of shaft of third metacarpal bone, left hand, initial encounter for closed fracture; S62.325A Displaced fracture of shaft of fourth metacarpal bone, left hand, initial encounter for closed fracture; S62.327A Displaced fracture of shaft of fifth metacarpal bone, left hand, initial encounter for closed fracture; W01.0XXA Fall on same level from slipping, tripping and stumbling without subsequent striking against object, initial encounter; S63.502A Unspecified sprain of left wrist, initial encounter; E78.00 Pure hypercholesterolemia, unspecified; Z91.040 Latex allergy status
CPT/HCPCS: 27818; 29125; 36415; 71250; 72170; 73110; 73130; 73610; 80053; 85025; 85610; 96372; 96374; 96375; 96376; 99284; 99285; J1170; 29515

== ENCOUNTER 2024-10-03 13:31 | Inpatient (IN) ==
--- NOTE | 2024-10-03 13:49 | ED Physician Documentation ---
History of Present Illness Stated complaint Stated Complaint: LETHARGIC Chief complaint Chief Complaint: General History obtained from History obtained from: Patient and EMS Additonal information Additional information: 78-year-old woman with history of A-fib, COPD, CHF has had a tough year since she had an open trimalleolar fracture in January and was sent to [facility]. It looks like she has been at home since early August after a prolonged inpatient stay and SNF stay. She is usually bedbound at baseline and was seen by my partner 2 days ago for complaints of edema. Workup demonstrated positive urinalysis and she was started on Keflex. This was started yesterday. Reportedly has been encephalopathic since last night. History limited and mostly from cost engineer initially due to encephalopathy. No family at the bedside on initial evaluation but cost engineer tells me they are coming. Wolf Coma Scale Assess Eye opening: To Voice Verbal response: Confused Motor response: Obeys Commands Total score: 13 Meds/Allgy Home Medications Ambulatory Orders Medication Instructions Recorded Confirmed Diabetic Shoes 09/04/24 09/04/24 Permanent Disabled Placard 09/04/24 09/04/24 blood-glucose sensor (Dexcom G6 09/04/24 09/04/24 Sensor device) incontinence pad, liner, disp 09/04/24 09/04/24 (Bladder Control Pad Ultra Plus) acetaminophen 500 mg tablet 500 mg PO Q8H PRN fever or pain 09/19/24 10/03/24 albuterol sulfate 2.5 mg/3 mL 2.5 mg inhalation Q2H PRN 09/19/24 10/03/24 (0.083 %) solution for nebulization shortness of breath or wheezing benzocaine 20 %-menthol 0.26 % 1 ea mucous membrane Q2H PRN 09/19/24 10/03/24 mouth mucosal gel (Orajel 2X toothache Toothache-Gum) cholecalciferol (vitamin D3) 25 25 mcg PO QDAY 09/19/24 10/03/24 mcg (1,000 unit) capsule coenzyme Q10 100 mg capsule (Co 100 mg PO QDAY 09/19/24 10/03/24 Q-10) colchicine 0.6 mg tablet 0.6 mg PO QDAY 09/19/24 10/03/24 melatonin 3 mg tablet 6 mg PO HS PRN sleep 09/19/24 10/03/24 oxycodone 5 mg tablet 2.5 - 5 mg PO Q6H PRN pain 09/19/24 10/03/24 allopurinol 300 mg tablet 300 mg PO QDAY gout prevention #90 09/20/24 10/03/24 tabs apixaban 2.5 mg tablet 2.5 mg PO BID a- fib #180 tabs 09/20/24 10/03/24 atorvastatin 10 mg tablet (Lipitor) 10 mg PO QPM high cholesterol #90 09/20/24 10/03/24 tabs bumetanide 1 mg tablet 2 mg (2 x 1 mg) PO BID DIURETIC 09/20/24 10/03/24 #180 tabs cetirizine 10 mg chewable tablet 5 mg (1/2 x 10 mg) PO QDAY 09/20/24 10/03/24 ALLERGIES #45 tabs dulaglutide 1.5 mg/0.5 mL 1.5 mg (0.5 mL) subcut QWEEK #2 mL 09/20/24 10/03/24 subcutaneous pen injector ([facility]) esomeprazole magnesium 40 mg 40 mg PO QDAY heartburn #90 caps 09/20/24 10/03/24 capsule,delayed release fluticasone propionate 50 1 spray intranasal QDAY allergic 09/20/24 10/03/24 mcg/actuation nasal rhinitis #16 grams spray,suspension gabapentin 300 mg capsule 900 mg (3 x 300 mg) PO BID PAIN 09/20/24 10/03/24 #540 caps insulin glargine 100 unit/mL (3 15 unit (0.15 mL) subcut QAM DM2 09/20/24 10/03/24 mL) subcutaneous pen (Lantus #15 mL Solostar U-100 Insulin) metolazone 5 mg tablet 5 mg PO .COMPLEX CONGESTIVE HEART 09/20/24 10/03/24 FAILURE #32 tabs midodrine 10 mg tablet 10 mg PO TID for low BP #270 tabs 09/20/24 10/03/24 pen needle, diabetic 31 gauge x #100 ea 09/20/24 09/20/24 5/16" potassium chloride 10 mEq 10 meq PO QDAY potassium 09/20/24 10/03/24 tablet,extended release (Klor-Con) supplement #90 tabs trazodone 50 mg tablet 50 mg PO QDAY depression and 09/20/24 10/03/24 insomnia #90 tabs cephalexin 500 mg capsule 500 mg PO TID 7 days #21 caps 10/01/24 10/03/24 Allergies Allergies Allergy/AdvReac Type Severity Reaction Status Date / Time erythromycin base Allergy Hives Verified 10/03/24 13:51 (Erythromycin Base) hydrocodone bitartrate * Allergy Hives Verified 10/03/24 13:51 (From Vicodin) levofloxacin (From Levaquin) Allergy Itching Verified 10/03/24 13:51 penicillin G Allergy Anaphylaxis Verified 10/03/24 13:51 propoxyphene HCl * (From Allergy Hives Verified 10/03/24 13:51 Darvon) adhesive tape AdvReac Intermediate Paper tape Verified 10/03/24 13:51 removes skin acetaminophen (From Vicodin) AdvReac Unknown Rash Verified 10/03/24 13:51 hydrocodone (From Vicodin) AdvReac Unknown Rash Verified 10/03/24 13:51 propoxyphene (From Darvon) AdvReac Unknown Rash Verified 10/03/24 13:51 latex AdvReac Itching Verified 10/03/24 13:51 [facility] Medical History Medical History (Updated 10/03/24 @ 16:09 by Santhosh Davila MD) Acute metabolic encephalopathy 05/2024- Bacteremia due to Klebsiella pneumoniae uti 05/2024 History of hypertension Dyspnea Pneumonia Hypoxia Open wound, abdominal wall, lateral CAP (community acquired pneumonia) Surgical History Surgical History Fracture of right ankle With ORIF and infection site of external fixator pin 01/2024 S/P cataract extraction bilateral S/P excision of ganglion cyst Dr. Romero -- Left foot S/P ORIF (open reduction internal fixation) fracture right elbow, hardware subsequently removed History of arthroplasty of right knee S/P cholecystectomy Family History Family History Mother Heart disease Father Family history unknown Sister Breast cancer Sister Uterine cancer COPD (chronic obstructive pulmonary disease) Cirrhosis Social History Social History (Updated 10/03/24 @ 14:28 by Trudy Marroquin RN) Smoking Status: Never smoker If you are a former smoker, when did you quit? (Date/Year): 1971 Number of Years Smoked: 8 How many cigarettes a day do you smoke? (20 cigarettes=1 Pk): 40 Do you dip or chew tobacco?: No Do you vape?: No Patient requests smoking cessation consult: No Initiate information on smoking cessation: No Living arrangement: At home Living Condition: With spouse/s.o. Support Person: Yes Relationship: Spouse Home Mobility Equipment: Wheeled walker and Lift Do you feel safe in your home environment?: Yes Suffered physical, verbal, emotional, or financial abuse?: No History of Abuse: No Exam Constitutional She is lethargic. Will arouse to voice and is oriented only to person. Respiratory breath sounds equal bilaterally, normal respiratory effort and clear to auscultation bilaterally Cardiovascular Irregularly irregular without murmur, borderline fast. Gastrointestinal abdomen soft to palpation, nontender to palpation and nontender to percussion There is a wound on the lower right abdominal wall that looks like it is getting wound care, no infection. Genitourinary [place] in place with purulent urine in the bag. Extremities She is quite edematous in the upper and lower extremities. Neurology GCS calculation - Eye opening: To Voice Verbal response: Confused Motor response: Obeys Commands Wolf Coma Scale total score: 13 Results Vitals Vitals: Vital Signs - 24 hr 10/03/24 13:45 10/03/24 15:33 Temperature 35.7 C L Temperature Source Temporal Artery Scan Pulse Rate 107 H 101 H Respiratory Rate 20 20 Blood Pressure 97/57 L 102/50 L O2 Saturation 93 94 O2 Source Room air Room air Pain Intensity 0 0 Oxygen O2 Source Room air Labs Labs: Laboratory Tests 10/03/24 10/03/24 10/03/24 14:20 14:20 14:20 WBC 30.2 H RBC 3.21 L Hgb 10.3 L Hct 31.6 L MCV 98.4 MCH 32.1 H MCHC 32.6 RDW 19.8 H Plt Count 158 MPV 10.4 Neut # (Auto) Not Reportable Lymph # (Auto) Not Reportable [place] # (Auto) Not Reportable Eos # (Auto) Not Reportable Baso # (Auto) Not Reportable Absolute Nucleated RBC Not Reportable Total Counted 100 Band Neuts % (Manual) 1 Abnorm Lymph % (Manual) 0 Nucleated RBC % Not Reportable Neutrophils # (Manual) 27.8 H Lymphocytes # (Manual) 1.2 L Monocytes # (Manual) 1.2 H Eosinophils # (Manual) 0.0 Basophils # (Manual) 0.0 Differential Comment MANUAL DIFFERENTIAL Platelet Estimate NORMAL (130-450,000) Platelet Morphology NORMAL APPEARANCE RBC Morph Micro Appear 2+ HYPOCHROMASIA 2+ ANISOCYTOSIS 2+ TARGET CELLS Sodium 133 L Potassium 4.2 Chloride 94 L Carbon Dioxide 32 Anion Gap 7.0 BUN 29 H Creatinine 1.8 H Estimated GFR (MDRD) 27 L Glucose 94 Calcium 8.2 L Total Bilirubin 0.7 AST 44 H ALT 19 Alkaline Phosphatase 228 H Total Protein 4.3 L Albumin 1.9 L Globulin 2.4 Albumin/Globulin Ratio 0.8 L TSH 10.97 H Free T4 Direct 0.77 Urine Opiates Screen Ur Buprenorphine Scrn Ur Oxycodone Screen Urine Methadone Screen Ur Barbiturates Screen Ur Tricyclics Screen Ur Phencyclidine Scrn Ur Amphetamine Screen U Methamphetamines Scrn U Benzodiazepines Scrn Urine Cocaine Screen U Cannabinoids Screen Ur Drug Screen Comment Ethyl Alcohol < 10.0 10/03/24 14:25 WBC RBC Hgb Hct MCV MCH MCHC RDW Plt Count MPV Neut # (Auto) Lymph # (Auto) [place] # (Auto) Eos # (Auto) Baso # (Auto) Absolute Nucleated RBC Total Counted Band Neuts % (Manual) Abnorm Lymph % (Manual) Nucleated RBC % Neutrophils # (Manual) Lymphocytes # (Manual) Monocytes # (Manual) Eosinophils # (Manual) Basophils # (Manual) Differential Comment Platelet Estimate Platelet Morphology RBC Morph Micro Appear Sodium Potassium Chloride Carbon Dioxide Anion Gap BUN Creatinine Estimated GFR (MDRD) Glucose Calcium Total Bilirubin AST ALT Alkaline Phosphatase Total Protein Albumin Globulin Albumin/Globulin Ratio TSH Free T4 Direct Urine Opiates Screen NEGATIVE Ur Buprenorphine Scrn NEGATIVE Ur Oxycodone Screen POSITIVE H Urine Methadone Screen NEGATIVE Ur Barbiturates Screen NEGATIVE Ur Tricyclics Screen NEGATIVE Ur Phencyclidine Scrn NEGATIVE Ur Amphetamine Screen NEGATIVE U Methamphetamines Scrn NEGATIVE U Benzodiazepines Scrn NEGATIVE Urine Cocaine Screen NEGATIVE U Cannabinoids Screen NEGATIVE Ur Drug Screen Comment CUTOFF CONC BELOW: Ethyl Alcohol Rads (name of study) head CT: Relevant Findings:: Final report received and EMP independent interpr etation of test (negative except sinusitis) PD Medical Decision Making ED course ED course: 78-year-old woman has known UTI growing greater than 100,000 gram-negative rods (speciation pending) now presents quite encephalopathic with soft blood pressure. She is edematous. at the bedside and independent history taken at issues but over the last few days has become more lethargic and 2:15 PM. Corroborates the above history. She has no underlying dementia or cognitive edematous. She did wake up yes terday to take her meds and really has not been eating or drinking anything. Workup in the emergency department demonstrates a normal head CT, she has a CBC notable for a white count of 30,000. Renal function generally in her baseline range. She has oxycodone on board but no alcohol. Given the encephalopathy and failure of outpatient treatment for UTI she was cultured up and administered cefepime (she has multiple antibiotic allergies). She is septic with a white count, tachycardia, and some low blood pressures albeit not in septic shock. She was not given excessive IV fluids as she has anasarca. I spoke with the hospitalist JONATHON Siddiqui for admission at 4:10 PM. The patient and family are counseled as to the diagnosis and need for admission. This document was made in part using voice recognition software, while efforts are made to proofread this document, sound alike an grammatical errors may occur. Discharge Plan Discharge Patient Disposition: 66 [facility] DC/Xfer Condition: Serious Clinical Impression: Chronic atrial fibrillation, Acute UTI Sepsis Qualifiers: Sepsis type: sepsis due to unspecified organism Sepsis acute organ dysfunction status: with acute organ dysfunction Severe sepsis acute organ dysfunction type: encephalopathy Severe sepsis shock status: without septic shock Qualified Code(s): A41.9 - Sepsis, unspecified organism Prescriptions: No Action atorvastatin [Lipitor] 10 mg tablet 10 mg PO QPM Qty: 90 3RF gabapentin 300 mg capsule 900 mg PO BID Qty: 540 3RF cephalexin 500 mg capsule 500 mg PO TID 7 Days Qty: 21 0RF bumetanide 1 mg tablet 2 mg PO BID Qty: 180 3RF (DME) Bladder Control Pad Ultra Plus Pad See Rx Instructions .ROUTE Rx Instructions: As directed (DME) Dexcom G6 Sensor Device See Rx Instructions .ROUTE Rx Instructions: As directed (DME) Diabetic Shoes Unit See Rx Instructions .ROUTE Rx Instructions: As directed (DME) Permanent Disabled Placard Misc See Rx Instructions .ROUTE Rx Instructions: As directed acetaminophen 500 mg tablet 500 mg PO Q8H PRN (Reason: fever or pain) coenzyme Q10 [Co Q-10] 100 mg capsule 100 mg PO QDAY oxycodone 5 mg tablet 2.5 - 5 mg PO Q6H PRN (Reason: pain) colchicine 0.6 mg tablet 0.6 mg PO QDAY melatonin 3 mg tablet 6 mg PO HS PRN (Reason: sleep) cholecalciferol (vitamin D3) 25 mcg (1,000 unit) capsule 25 mcg PO QDAY albuterol sulfate 2.5 mg /3 mL (0.083 %) solution for nebulization 2.5 mg inhalation Q2H PRN (Reason: shortness of breath or wheezing) Orajel 2X Toothache-Gum 20-0.26 % gel 1 ea mucous membrane Q2H PRN (Reason: toothache) trazodone 50 mg tablet 50 mg PO QDAY Qty: 90 3RF esomeprazole magnesium 40 mg capsule,delayed release(DR/EC) 40 mg PO QDAY Qty: 90 3RF potassium chloride [Klor-Con 10] 10 mEq tablet extended release 10 meq PO QDAY Qty: 90 3RF fluticasone propionate 50 mcg/actuation spray,suspension 1 spray intranasal QDAY Qty: 16 6RF Rx Instructions: administer into each nostril allopurinol 300 mg tablet 300 mg PO QDAY Qty: 90 1RF apixaban 2.5 mg tablet 2.5 mg PO BID Qty: 180 3RF midodrine 10 mg tablet 10 mg PO TID Qty: 270 3RF Rx Instructions: do not give last dose of day after 6PM or within 4 hrs of bedtime HOLD FOR SYSTOLIC BP > 165 cetirizine 10 mg tablet,chewable 5 mg PO QDAY Qty: 45 3RF metolazone 5 mg tablet 5 mg PO .COMPLEX Qty: 32 3RF Rx Instructions: 5 mg orally every Tues and Sat; (DME) pen needle, diabetic 31 gauge x 5/16" needle See Rx Instructions .Route Qty: 100 3RF Rx Instructions: USE WITH INSULIN PEN ONCE DAILY Trulicity 1.5 mg/0.5 mL pen injector 1.5 mg subcut QWEEK Qty: 2 3RF insulin glargine [Lantus Solostar U-100 Insulin] 100 unit/mL (3 mL) insulin pen 15 unit subcut QAM Qty: 15 3RF Print Language: Yi
[2024-10-03] MEDS ORDERED: CEFEPIME 2 GM VIAL IVP STA (13:52)
[2024-10-03 14:26] LABS: BASOPHILS % (AUTO) 0.1 %; EOSINOPHILS % (AUTO) 0.4 %; HCT - HEMATOCRIT 31.6 % (37.0-47.0); HGB - HEMOGLOBIN 10.3 g/dL (12.0-16.0); LYMPHOCYTES % (AUTO) 8.9 %; MEAN CORPUSCULAR HEMOGLOBIN 32.1 pg (27.0-31.0); MEAN CORPUSCULAR HGB CONC 32.6 g/dL (32.0-36.0); MEAN CORPUSCULAR VOLUME 98.4 fL (81.0-99.0); MEAN PLATELET VOLUME 10.4 fL (7.9-10.8); MONOCYTES % (AUTO) 2.1 %; NEUTROPHILS % (AUTO) 86.4 %; PLT - PLATELET COUNT 158 10^3/uL (130-450); RED BLOOD COUNT 3.21 10^6/uL (4.20-5.40); RED CELL DISTRIBUTION WIDTH 19.8 % (12.0-15.0); WHITE BLOOD COUNT 30.2 x10^3/uL (4.8-10.8)
[2024-10-03 14:30] LABS: ABNORMAL LYMPHS % (MANUAL) 0 %
[2024-10-03 14:40] LABS: BAND NEUTROPHILS % (MANUAL) 1 %; LYMPHOCYTES # (MANUAL) 1.2 10^3/uL (1.5-3.5); LYMPHOCYTES % (MANUAL) 4 %; MONOCYTES # (MANUAL) 1.2 10^3/uL (0.0-1.0); NEUTROPHILS # (MANUAL) 27.8 10^3/uL (1.5-6.6)
[2024-10-03 14:42] LABS: DIFFERENTIAL COMMENT MANUAL DIFFERENTIAL; PLATELET ESTIMATE, MANUAL NORMAL (130-450,000) (NORMAL); PLATELET MORPHOLOGY NORMAL APPEARANCE (NORMAL)
[2024-10-03 15:01] LABS: ALBUMIN 1.9 g/dL (3.2-5.5); ALBUMIN/GLOBULIN RATIO 0.8 (1.0-2.2); ALKALINE PHOSPHATASE 228 IU/L (42-121); ALT ALANINE AMINOTRANSFERASE 19 IU/L (10-60); AST ASPARTATE AMINOTRANSFERASE 44 IU/L (10-42); BILIRUBIN,TOTAL 0.7 mg/dL (0.2-1.0); BUN - BLOOD UREA NITROGEN 29 mg/dL (6-20); CALCIUM 8.2 mg/dL (8.5-10.3); CARBON DIOXIDE - CO2 32 mmol/L (21-32); CHLORIDE 94 mmol/L (101-111); CREATININE 1.8 mg/dL (0.6-1.3); ETOH - ETHANOL < 10.0 mg/dL; GFR - MDRD 27 (>89); GLUCOSE 94 mg/dL (74-104); POTASSIUM 4.2 mmol/L (3.5-4.5); SODIUM 133 mmol/L (135-145); TOTAL PROTEIN 4.3 g/dL (6.4-8.9)
[2024-10-03 15:09] LABS: THYROID STIMULATING HORMONE 10.97 uIU/mL (0.34-5.60)
[2024-10-03 15:14] LABS: AMPHETAMINE SCREEN,URINE NEGATIVE (NEGATIVE); BARBITURATE SCREEN,UR NEGATIVE (NEGATIVE); BENZODIAZEPINES SCREEN, URINE NEGATIVE (NEGATIVE); BUPRENORPHINE SCREEN, URINE NEGATIVE (NEGATIVE); COCAINE SCREEN URINE NEGATIVE (NEGATIVE); METHADONE SCREEN, URINE NEGATIVE (NEGATIVE); METHAMPHETAMINES SCREEN, URINE NEGATIVE (NEGATIVE); OPIATE SCREEN, URINE NEGATIVE (NEGATIVE); OXYCODONE SCREEN, URINE POSITIVE (NEGATIVE); THC CANNABINOID SCREEN, URINE NEGATIVE (NEGATIVE); TRICYCLIC ANTIDEPRESSANT,URINE NEGATIVE (NEGATIVE)
[2024-10-03] MEDS: CEFEPIME 2 GM in SODIUM CHLORIDE 0.9% MINIBAG 100 ML IV STA (15:35)
--- NOTE | 2024-10-03 15:35 | CT Report ---
PROCEDURE: CT Head WO INDICATIONS: ams TECHNIQUE: Noncontrast 4.5 mm thick angled axial sections acquired from the foramen magnum to the vertex. For r adiation dose reduction, the following was used: automated exposure control, adjustment of mA and/or kV according to patient size. COMPARISON: None. FINDINGS: Image quality: Excellent. CSF spaces: Basal cisterns are patent. No extra-axial fluid collections. Ventricles are normal in size and shape. Brain: No midline shift. No intracranial masses or hemorrhage. Marie-white matter interface is norm al. Skull and face: Calvarium and visualized facial bones are intact, without suspicious lesions. Sinuses: Air-fluid level, left maxillary sinus. There is underlying mucosal thickening and there is m ild patchy left anterior ethmoid disease. IMPRESSION: No acute intracranial pathology. Acute on chronic left maxillary sinusitis. Reviewed by: Martin Marquez MD on 10/03/2024 3:34 PM PST Approved by: Martin Marquez MD on 10/03/2024 3:34 PM PST Station ID: [id number]
--- NOTE | 2024-10-03 17:10 | HISTORY & PHYSICAL EXAMINATION ---
Chief Complaint Chief Complaint Chief Complaint: lethargy History of Present Illness Admitted From Admitted From:: home History Obtained From Records Reviewed: recent SNF dc, primary care telehealth 09/20/24 History obtained from: patient and spouse Exam Limitations: patient with encephalopathy History of Present Illness HPI Comment/Other: 78-year-old female with multiple medical problems to include diabetes, bedbound status, hypertension, peripheral edema, ESBL Klebsiella urinary tract infection, GERD, COPD presents to the emergency department with mental status changes. She was seen in our emergency department 2 days ago on October 01 and diagnosed with urinary retention and urinary tract infection. A Hawthorne was placed and the plan was for her to follow-up with urology. She has a history of renal insufficiency, is followed by Dr. Arce of urology. In the records that I have available it is unclear what her baseline creatinine is. I see a note of a creatinine of 3.99 on 06/07/2024. In reviewing labs done at our facility I see a creatinine as high as 2.5 in December 2023. In any event she re presents to the emergency department for the second time in 48 hours with complaints of mental status changes and peripheral edema. Her Conor is her primary surrogate decision maker. He is also her primary caregiver. He has some assistance from [employer] coming into the home several times a week. When I questioned Conor about any sort of advance care planning or advance directives he states there is something scanned into the chart. I cannot locate this document at this time. At this point Nathaly would want to be resuscitated and on a ventilator but only on a ventilator for up to 5 days. We will have further advance care planning discussions as her admission progresses Meds/Allgy Home Medications Ambulatory Orders Medication Instructions Recorded Confirmed Diabetic Shoes 09/04/24 09/04/24 Permanent Disabled Placard 09/04/24 09/04/24 blood-glucose sensor (Dexcom G6 09/04/24 09/04/24 Sensor device) incontinence pad, liner, disp 09/04/24 09/04/24 (Bladder Control Pad Ultra Plus) acetaminophen 500 mg tablet 500 mg PO Q8H PRN fever or pain 09/19/24 10/03/24 albuterol sulfate 2.5 mg/3 mL 2.5 mg inhalation Q2H PRN 01/08/25 01/22/25 (0.083 %) solution for nebulization shortness of breath or wheezing benzocaine 20 %-menthol 0.26 % 1 ea mucous membrane Q2H PRN 09/19/24 10/03/24 mouth mucosal gel (Orajel 2X toothache Toothache-Gum) cholecalciferol (vitamin D3) 25 25 mcg PO QDAY 09/19/24 10/03/24 mcg (1,000 unit) capsule coenzyme Q10 100 mg capsule (Co 100 mg PO QDAY 09/19/24 10/03/24 Q-10) colchicine 0.6 mg tablet 0.6 mg PO QDAY 09/19/24 10/03/24 melatonin 3 mg tablet 6 mg PO HS PRN sleep 09/19/24 10/03/24 oxycodone 5 mg tablet 2.5 - 5 mg PO Q6H PRN pain 09/19/24 10/03/24 allopurinol 300 mg tablet 300 mg PO QDAY gout prevention #90 09/20/24 10/03/24 tabs apixaban 2.5 mg tablet 2.5 mg PO BID a- fib #180 tabs 09/20/24 10/03/24 atorvastatin 10 mg tablet (Lipitor) 10 mg PO QPM high cholesterol #90 09/20/24 10/03/24 tabs bumetanide 1 mg tablet 2 mg (2 x 1 mg) PO BID DIURETIC 09/20/24 10/03/24 #180 tabs cetirizine 10 mg chewable tablet 5 mg (1/2 x 10 mg) PO QDAY 09/20/24 10/03/24 ALLERGIES #45 tabs dulaglutide 1.5 mg/0.5 mL 1.5 mg (0.5 mL) subcut QWEEK #2 mL 09/20/24 10/03/24 subcutaneous pen inject[facility] ([facility]) esomeprazole magnesium 40 mg 40 mg PO QDAY heartburn #90 caps 09/20/24 10/03/24 capsule,delayed release fluticasone propionate 50 1 spray intranasal QDAY allergic 09/20/24 10/03/24 mcg/actuation nasal rhinitis #16 grams spray,suspension gabapentin 300 mg capsule 900 mg (3 x 300 mg) PO BID PAIN 09/20/24 10/03/24 #540 caps insulin glargine 100 unit/mL (3 15 unit (0.15 mL) subcut QAM DM2 09/20/24 10/03/24 mL) subcutaneous pen (Lantus #15 mL Solostar U-100 Insulin) metolazone 5 mg tablet 5 mg PO .COMPLEX CONGESTIVE HEART 09/20/24 10/03/24 FAILURE #32 tabs midodrine 10 mg tablet 10 mg PO TID for low BP #270 tabs 09/20/24 10/03/24 pen needle, diabetic 31 gauge x #100 ea 09/20/24 09/20/24 5/16" potassium chloride 10 mEq 10 meq PO QDAY potassium 09/20/24 10/03/24 tablet,extended release (Klor-Con) supplement #90 tabs trazodone 50 mg tablet 50 mg PO QDAY depression and 09/20/24 10/03/24 insomnia #90 tabs cephalexin 500 mg capsule 500 mg PO TID 7 days #21 caps 10/01/24 10/03/24 Allergies Allergies Allergy/AdvReac Type Severity Reaction Status Date / Time erythromycin base Allergy Hives Verified 10/03/24 13:51 (Erythromycin Base) hydrocodone bitartrate * Allergy Hives Verified 10/03/24 13:51 (From Vicodin) levofloxacin (From Levaquin) Allergy Itching Verified 10/03/24 13:51 penicillin G Allergy Anaphylaxis Verified 10/03/24 13:51 propoxyphene HCl * (From Allergy Hives Verified 10/03/24 13:51 Darvon) adhesive tape AdvReac Intermediate Paper tape Verified 10/03/24 13:51 removes skin acetaminophen (From Vicodin) AdvReac Unknown Rash Verified 10/03/24 13:51 hydrocodone (From Vicodin) AdvReac Unknown Rash Verified 10/03/24 13:51 propoxyphene (From Darvon) AdvReac Unknown Rash Verified 10/03/24 13:51 latex AdvReac Itching Verified 10/03/24 13:51 [facility] Medical History Medical History (Updated 10/03/24 @ 17:40 by JONATHON Byrnes) Acute metabolic encephalopathy 05/2024- Bacteremia due to Klebsiella pneumoniae uti 05/2024 History of hypertension Dyspnea Pneumonia Hypoxia Open wound, abdominal wall, lateral CAP (community acquired pneumonia) Surgical History Surgical History Fracture of right ankle With ORIF and infection site of external fixator pin 01/2024 S/P cataract extraction bilateral S/P excision of ganglion cyst Dr. Romero -- Left foot S/P ORIF (open reduction internal fixation) fracture right elbow, hardware subsequently removed History of arthroplasty of right knee S/P cholecystectomy Family History Family History Mother Heart disease Father Family history unknown Sister Breast cancer Sister Uterine cancer COPD (chronic obstructive pulmonary disease) Cirrhosis Social History Social History (Updated 10/03/24 @ 14:28 by Trudy Marroquin RN) Smoking Status: Never smoker If you are a former smoker, when did you quit? (Date/Year): 1971 Number of Years Smoked: 8 How many cigarettes a day do you smoke? (20 cigarettes=1 Pk): 40 Do you dip or chew tobacco?: No Do you vape?: No Patient requests smoking cessation consult: No Initiate information on smoking cessation: No Living arrangement: At home Living Condition: With spouse/s.o. Support Person: Yes Relationship: Spouse Home Mobility Equipment: Wheeled walker and Lift Do you feel safe in your home environment?: Yes Suffered physical, verbal, emotional, or financial abuse?: No History of Abuse: No POLST Patient has POLST: No POLST Status: Full Code Review of Systems Status of ROS: unobtainable due to mental status Prior Level of Functionality: She is bedbound at baseline. Her uses a Elyse lift to move her to the chair. She has been this way since January 2024 Exam Constitutional normal general appearance HENMT normocephalic and hearing grossly normal bilaterally mucous membranes dry Eyes conjunctivae normal Neck/C-Spine visual inspection normal Lymph no lymphadenopathy noted Chest inspection of chest normal and palpation of chest normal Respiratory breath sounds equal bilaterally, normal respiratory effort and clear to auscultation bilaterally Cardiovascular mildy tachycardic. severe peripheral edema x 4 extremities Gastrointestinal abdomen normal to inspection and abdomen soft to palpation Extremities severe peripheral edema x 4. right ankle (previously fractured) without wounds. dressing intact at left heel, no cellulitis on left lower ext Neurology railways assistant II-XII intact, no movement abnormality noted and no focal motor deficit noted confused. oriented to self. thinks she is at [facility], and when I ask the date, she tells me her birthday Psychiatry pleasant, but confused Skin Ecchymotic lesions bilateral forearms. Conclusion/Plan Problem List (1) Sepsis: Plan: 78-year-old female with multiple medical problems presents to the emergency department with acute mental status changes white blood cell count of 30.2, afebrile heart rate in the low 100s and blood pressure as low as 97/57. She meets sepsis criteria. I am admitting her for sepsis with presumed source of urinary tract.Lactic acid is 1.2. I will not repeat this. On exam her mucous membranes are dry and she has not been eating and drinking well at home. She has a Hawthorne in place and her urinary output over the last 24 hours is approximately 50 cc/h over the last 24 hours as determined by calculations of urinary output provided by her . Discussed with Dr. Davila. Given the patient's vital signs, her failure to improve in the outpatient environment, and her leukocytosis he and I agree that would be appropriate to admit her to inpatient status for care of her sepsis and urinary tract infection. Blood cultures and urine cultures are pending at this time. Qualifiers: Sepsis acute organ dysfunction status: with acute organ dysfunction S epsis type: sepsis due to unspecified organism Severe sepsis acute organ dysfunction type: encephalopathy Severe sepsis shock status: without septic shock Qualified Code(s): A41.9 - Sepsis, unspecified organism; R65.20 - Severe sepsis without septic shock; G93.41 - Metabolic encephalopathy (2) Acute UTI: Plan: Source of sepsis is most likely urinary tract infection. She has a UA, culture is pending blood cultures are also pending UA shows moderate leukocyte esterase with 11-25 white blood cells. This patient has a history of ESBL Klebsiella with an ESBL Klebsiella UTI treated in late April 2024. In the notes I see that she had a creatinine up to 5.39 during that admission down to 1.44 before her transfer to group home facility. (3) Acute urinary retention: Plan: Hawthorne placed in the emergency department on October 01. Patient was discharged home with Hawthorne. I will leave this in place for now for accurate ins and outs. She was due to follow-up in the outpatient environment with Dr. Suresh and I will leave this plan in place. (4) Generalized edema due to fluid overload: Plan: Patient has severe peripheral edema in all of her limbs. She has hemorrhagic blisters on her upper extremities the etiology of which is unclear. We will diurese her. I have placed her on her home Bumex additionally I will give her Lasix. Her renal status looks to be relatively close to baseline. I will also give her gentle hydration as her mucous membranes appear very dry I think this is third spacing due to inflammatory process. (5) Meningioma: Plan: Review of records shows history of meningioma. CT of the head this admission with no acute intracranial pathology there is a chronic left maxillary sinusitis I have reviewed imaging file here and I do not see the MRI of the brain which diagnosed the meningioma, the plan was for repeat MRI of the brain. I will observe her encephalopathy and consider MRI (6) Diastolic heart failure with preserved ejection fraction: Plan: Chest x-ray shows cardiomegaly with pulmonary vascular congestion. Her BNP was 238 at her emergency department visit on the . She has severe peripheral edema but dry mucous membranes I have reinstituted her home Bumex and will give her Lasix IV as well. (7) Chronic kidney disease, stage 4 (severe): Plan: Current GFR 27 with a creatinine of 1.6 when she was seen in the emergency department 2 days ago 1.8 on admission today. I will repeat BNP in the a.m. I need to diurese this patient but will do so with care. Her potassium was high when she was seen in the emergency department 2 days ago at 4.8 it is within normal limits today 4.2 she is on potassium chloride 10 mill equivalents daily at home her magnesium was slightly low at 1.5 when seen in the emergency department 2 days ago I will add this onto a.m. labs. (8) Insulin dependent diabetes mellitus: Plan: Hemoglobin A1c 2 days ago was 4.8. She is on Lantus 15 units at bedtime at home she is also taking Trulicity at home. I will start her on 10 units of Lantus with blood glucose checks and low sliding scale insulin. (9) Chronic atrial fibrillation: Plan: At home she takes Lasix scratch that at home she takes Eliquis, renal dosing 2.5 mg twice daily. I do not see any beta-hannah in her home medication regimen. She is not having any chest pain or palpitations. Looking through the notes of the last primary care visit she had previously been on metoprolol succinate 25 mg a day currently not taking. She is not in A-fib with RVR today. Her heart rate is in the low 100s and she is hypotensive I believe this to be due to her sepsis syndrome. I will continue to monitor her heart rate and blood pressure and institute beta-blockers if I feel it is indicated gaited at this time I do not think it would be beneficial for her. Most recent echocardiogram done at [facility] in March 2024 ejection fraction 55 to 60% with severe diastolic dysfunction. (10) Decubital ulcer: Plan: Decubitus ulcer of left heel. Protective measures are in place. shows me a picture of the ulceration with dry eschar over the top of it I would say that is unstageable at this point. I will coordinate with nursing staff to develop a wound care plan. On exam of the foot there is no surrounding cellulitis. Qualifiers: Pressure injury location: heel Plan I have spent 90 minutes in the care of this patient today. This includes time [id number], review and ordering of diagnostic imaging and laboratory studies and consultation with other providers.. Monitoring the patient's signs symptoms, evaluation of medication effectiveness and patient's response to treatment. Lab Results Lab results reviewed: Yes 10/03/24 14:20 10/03/24 14:20 Diagnostic Imaging Results Diagnostic Imaging Results: positive Final report reviewed Diagnostic Imaging Results Comments: Chest x-ray showing fluid overload. This was not repeated today. Head CT showing no acute intracranial pathology.
[2024-10-03] MEDS ORDERED: ALBUTEROL NEB 2.5 MG/3 ML INH PRN (19:14)
[2024-10-03] MEDS ORDERED: COENZYME Q10 100 MG PO SCH (19:14)
[2024-10-03] MEDS ORDERED: MELATONIN 3 MG TABLET PO PRN (19:14)
[2024-10-03] MEDS: LACTATED RINGERS 1,000 ML IV SCH (20:49)
[2024-10-03] MEDS: FUROSEMIDE 40 MG/4 ML VIAL IVP STA (20:49)
[2024-10-03] MEDS: INSULIN LISPRO 300 UNIT/3 ML PEN SUBQ SCH (21:39)
[2024-10-03] MEDS: BUMETANIDE 1 MG TABLET PO SCH (21:51)
[2024-10-03] MEDS: GABAPENTIN 300 MG CAPSULE PO SCH ×2 (21:51→22:35)
[2024-10-03] MEDS: ATORVASTATIN 10 MG TABLET PO SCH (21:52)
[2024-10-03] MEDS: APIXABAN 2.5 MG TABLET PO SCH (21:52)
[2024-10-03] MEDS: PANTOPRAZOLE 40 MG TABLET PO SCH (22:33)
[2024-10-03] MEDS: INSULIN GLARGINE-YFGN 300 UNIT/3 ML PEN SUBQ SCH (22:34)
[2024-10-03] MEDS: CEFEPIME 1 GM in SODIUM CHLORIDE 0.9% MINIBAG 100 ML IV SCH (22:37)
[2024-10-03] MEDS: ZINC OXIDE 20% OINT 30 GM TUBE TOP SCH (23:36)
[2024-10-04] MEDS: CEFEPIME 1 GM in SODIUM CHLORIDE 0.9% MINIBAG 100 ML IV SCH (04:07)
[2024-10-04 06:03] LABS: BASOPHILS % (AUTO) 0.4 %; EOSINOPHILS % (AUTO) 0.8 %; HCT - HEMATOCRIT 30.3 % (37.0-47.0); HGB - HEMOGLOBIN 10.3 g/dL (12.0-16.0); LYMPHOCYTES % (AUTO) 8.6 %; MEAN CORPUSCULAR HEMOGLOBIN 32.6 pg (27.0-31.0); MEAN CORPUSCULAR VOLUME 95.9 fL (81.0-99.0); MEAN PLATELET VOLUME 10.6 fL (7.9-10.8); MONOCYTES % (AUTO) 2.6 %; NEUTROPHILS % (AUTO) 85.8 %; PLT - PLATELET COUNT 136 10^3/uL (130-450); RED BLOOD COUNT 3.16 10^6/uL (4.20-5.40); RED CELL DISTRIBUTION WIDTH 19.5 % (12.0-15.0); WHITE BLOOD COUNT 24.7 x10^3/uL (4.8-10.8)
[2024-10-04 06:19] LABS: MAGNESIUM 1.7 mg/dL (1.7-2.3)
[2024-10-04 06:20] LABS: ABNORMAL LYMPHS % (MANUAL) 0 %
[2024-10-04 06:32] LABS: CALCIUM 8.1 mg/dL (8.5-10.3); CREATININE 1.8 mg/dL (0.6-1.3); POTASSIUM 3.7 mmol/L (3.5-4.5)
[2024-10-04 06:39] LABS: BAND NEUTROPHILS % (MANUAL) 2 %; DIFFERENTIAL COMMENT MANUAL DIFFERENTIAL; LYMPHOCYTES # (MANUAL) 2.5 10^3/uL (1.5-3.5); LYMPHOCYTES % (MANUAL) 10 %; NEUTROPHILS # (MANUAL) 21.2 10^3/uL (1.5-6.6); PLATELET ESTIMATE, MANUAL NORMAL (130-450,000) (NORMAL); PLATELET MORPHOLOGY NORMAL APPEARANCE (NORMAL); RBC MORPHOLOGY (MULTIPLE) 1+ HYPOCHROMASIA (NORMAL); WBC MORPHOLOGY (MULTIPLE) NORMAL APPEARANCE (NORMAL)
[2024-10-04] MEDS: POTASSIUM CHLORIDE 10 MEQ CAPSULE PO SCH (08:45)
[2024-10-04] MEDS: CETIRIZINE 10 MG TABLET PO SCH (08:45)
[2024-10-04] MEDS: PANTOPRAZOLE 40 MG TABLET PO SCH (08:46)
[2024-10-04] MEDS: CHOLECALCIFEROL 25 MCG TABLET PO SCH (08:46)
[2024-10-04] MEDS: allopurinoL 100 MG TABLET PO SCH (08:46)
[2024-10-04] MEDS: FLUTICASONE NASAL SPRAY NAS SCH (08:47)
[2024-10-04] MEDS: INSULIN GLARGINE-YFGN 300 UNIT/3 ML PEN SUBQ SCH (08:47)
[2024-10-04 08:50] LABS: ESTIMATED AVERAGE GLUCOSE 88 mg/dL (70-100); HEMOGLOBIN A1c% 4.7 % (4.27-6.07)
[2024-10-04] MEDS ORDERED: traZODone 50 MG TABLET PO SCH (09:00)
--- NOTE | 2024-10-04 10:40 | PROVIDER PROGRESS NOTE ---
Subjective Prog Note Date Prog Note Date: 10/04/24 Subjective Subjective: at bedside. He has been here several times throughout the day. He states that she had been off her Bumex for about a month due to issues with the prescription and [facility]. She has been swollen for about a week and leaking fluid from her extremities for about a week. She has had the wound on her abdomen for some number of months she came home from the hospital with it unclear the etiology of this and she has had the wound on her heel for 2 to 3 weeks. He states he is able to meet her care needs at home. He definitely is tired at times and is grateful for this brief respite. She does use CPAP at home and he will be bringing that in. Further discussion of CODE STATUS had today. Mike is unable to participate at this time due to her mental status. He states that he does have a legal document for medical power of commercial litigation attorney which she has turned into the hospital. I do not see this scanned into the chart. He states that Manisha would not want CPR which where she to have cardiac arrest. She is okay with a short trial of intubation in the episode of pulmonary arrest.He states that Manisha does not have a POLST Current Medications Current Medications Current Medications: Current Medications Generic Name Dose Route Start Last Admin Trade Name Marisol PRN Reason Stop Dose Admin Albuterol 2.5 mg 10/03/24 19:14 Albuterol Neb 2.5 Mg/3 Ml INH Q2H PRN shortness of breath or wheezing Allopurinol 300 mg 10/04/24 09:00 10/04/24 08:46 Allopurinol 100 Mg Tablet PO 300 mg DAILY CARLEE Administration Apixaban 2.5 mg 10/03/24 21:00 10/04/24 08:46 Apixaban 2.5 Mg Tablet PO 2.5 mg BID CARLEE Administration Atorvastatin Calcium 10 mg 10/03/24 21:00 10/03/24 21:52 Atorvastatin 10 Mg Tablet PO 10 mg QPM CARLEE Administration Bumetanide 2 mg 10/03/24 21:00 10/04/24 08:46 Bumetanide 1 Mg Tablet PO 2 mg BID CARLEE Administration Cetirizine HCl 5 mg 10/04/24 09:00 10/04/24 08:45 Cetirizine 10 Mg Tablet PO 5 mg DAILY CARLEE Administration Cholecalciferol 25 mcg 10/04/24 09:00 10/04/24 08:46 Cholecalciferol 25 Mcg Tablet PO 25 mcg DAILY CARLEE Administration Fluticasone Propionate 1 sprays 10/04/24 09:00 10/04/24 08:47 Fluticasone Nasal Wayne NELLA 1 sprays DAILY CARLEE Administration Furosemide 40 mg 10/04/24 10:00 Furosemide 40 Mg/4 Ml Vial IVP DAILY CARLEE Gabapentin 600 mg 10/03/24 22:00 10/04/24 08:45 Gabapentin 300 Mg Capsule PO 600 mg BID CARLEE Administration Cefepime HCl 1 gm/ Sodium 100 mls @ 200 mls/hr 10/04/24 04:00 10/04/24 04:37 Chloride IV Infused 0400,1600 [facility] Infusion Insulin Glargine-yfgn 10 unit 10/04/24 09:00 10/04/24 08:47 Insulin Glargine-Yfgn 300 Unit/3 Ml Pen SUBQ Not Given DAILY [facility] Insulin Human Lispro 1 - 5 unit 10/03/24 21:00 10/04/24 08:46 Insulin Lispro 300 Unit/3 Ml Pen SUBQ Not Given 0800,1200,1700,2100 [facility] Protocol Melatonin 6 mg 10/03/24 19:14 Melatonin 3 Mg Tablet PO HS PRN sleep Metolazone 5 mg 10/06/24 09:00 Metolazone 2.5 Mg Tablet PO TuSa@0900 [facility] Multi-Ingredient Ointment 1 applic 10/03/24 23:30 10/04/24 08:48 Zinc Oxide 20% Oint 30 Gm Tube TOP 1 applic BID CARLEE Administration Nystatin 1 applic 10/04/24 10:00 Nystatin Cream 15 Gm Tube TOP BID CARLEE Oxycodone HCl 2.5 - 5 mg 10/03/24 19:14 Oxycodone 5 Mg Tablet PO Q6H PRN pain Pantoprazole Sodium 40 mg 10/04/24 09:00 10/04/24 08:46 Pantoprazole 40 Mg Tablet PO 40 mg DAILY CARLEE Administration Patient Own Refrig 1.5 each 10/06/24 09:00 Med (Trulicity 1.5 SUBQ Mg) Q7D [facility] Potassium Chloride 10 meq 10/04/24 08:00 10/04/24 08:45 Potassium Chloride 10 Meq Capsule PO 10 meq DAILYWM [facility] Administration Trazodone HCl 50 mg 10/04/24 09:00 Trazodone 50 Mg Tablet PO HS [facility] Objective Vital Signs/Intake & Output Reviewed Vital Signs: Yes Vital Signs: Vital Signs x48h Temp Pulse Resp BP Pulse Ox 10/04/24 07:42 36.3 C L 112 H 20 102/54 L 94 Intake & Output: Intake & Output 10/01/24 10/02/24 10/03/24 10/04/24 23:59 23:59 23:59 23:59 Intake Total 100 / 100 888 / 888 Output Total 550 / 550 400 / 400 Balance -450 / -450 488 / 488 Weight (kg) 136 kg Objective General Appearance: positive No acute distress and Lethargic Eyes Bilateral: positive Normal inspection and PERRL ENT: positive ENT inspection nml Neck: positive Nml inspection Respiratory: positive No respiratory distress and Breath sounds nml (diminished at bases) Cardiovascular: positive Regular rate & rhythm Comments/Other: Wounds to the left heel has an area of eschar which is dark but not black. The underlying tissue was firm without bogginess and there is no surrounding cellulitis The right lower abdominal wall has a 5 cm ovoid patch with beefy granulation tissue which is oozing blood. There is no depth. At the gluteal cleft there is skin breakdown,full thickness, but no depth. upper and lower extremities with weepy skin, and ecchymosis more at the upper extremities than the lower. Lab Results 10/04/24 05:49 10/04/24 05:49 Other Labs: Lab Results x24hrs 10/04/24 10/04/24 10/04/24 Range/Units 08:24 07:36 05:49 WBC 24.7 H (4.8-10.8) x10^3/uL RBC 3.16 L (4.20-5.40) 10^6/uL Hgb 10.3 L (12.0-16.0) g/dL Hct 30.3 L (37.0-47.0) % MCV 95.9 (81.0-99.0) fL MCH 32.6 H (27.0-31.0) pg MCHC 34.0 (32.0-36.0) g/dL RDW 19.5 H (12.0-15.0) % Plt Count 136 (130-450) 10^3/uL MPV 10.6 (7.9-10.8) fL Neut # (Auto) Not Reportable Lymph # (Auto) Not Reportable Creek # (Auto) Not Reportable Eos # (Auto) Not Reportable Baso # (Auto) Not Reportable Absolute Nucleated RBC Not Reportable Total Counted 100 Band Neuts % (Manual) 2 (0 - 10) % Abnorm Lymph % (Manual) 0 % Nucleated RBC % Not Reportable Neutrophils # (Manual) 21.2 H (1.5-6.6) 10^3/uL Lymphocytes # (Manual) 2.5 (1.5-3.5) 10^3/uL Monocytes # (Manual) 1.0 (0.0-1.0) 10^3/uL Eosinophils # (Manual) 0.0 (0-0.7) 10^3/uL Basophils # (Manual) 0.0 (0-0.1) 10^3/uL Differential Comment MANUAL DIFFERENTIAL WBC Morphology NORMAL APPEARANCE (NORMAL) Platelet Estimate NORMAL (130-450,000) (NORMAL) Platelet Morphology NORMAL APPEARANCE (NORMAL) RBC Morph Micro Appear 1+ HYPOCHROMASIA (NORMAL) Sodium 133 L (135-145) mmol/L Potassium 3.7 (3.5-4.5) mmol/L Chloride 95 L (101-111) mmol/L Carbon Dioxide 31 (21-32) mmol/L Anion Gap 7.0 (6-13) BUN 31 H (6-20) mg/dL Creatinine 1.8 H (0.6-1.3) mg/dL Estimated GFR (MDRD) 27 L (>89) Glucose 72 L (74-104) mg/dL POC Whole Bld Glucose 82 64 (70-100) mg/dL Estimat Average Glucose 88 (70-100) mg/dL Hemoglobin A1c % 4.7 (4.27-6.07) % Lactic Acid (0.5-2.2) mmol/L Calcium 8.1 L (8.5-10.3) mg/dL Magnesium 1.7 (1.7-2.3) mg/dL Total Bilirubin (0.2-1.0) mg/dL AST (10-42) IU/L ALT (10-60) IU/L Alkaline Phosphatase (42-121) IU/L Total Protein (6.4-8.9) g/dL Albumin (3.2-5.5) g/dL Globulin (2.1-4.2) g/dL Albumin/Globulin Ratio (1.0-2.2) TSH (0.34-5.60) uIU/mL Free T4 Direct (0.58-1.64) ng/dL Urine Opiates Screen (NEGATIVE) Ur Buprenorphine Scrn (NEGATIVE) Ur Oxycodone Screen (NEGATIVE) Urine Methadone Screen (NEGATIVE) Ur Barbiturates Screen (NEGATIVE) Ur Tricyclics Screen (NEGATIVE) Ur Phencyclidine Scrn (NEGATIVE) Ur Amphetamine Screen (NEGATIVE) U Methamphetamines Scrn (NEGATIVE) U Benzodiazepines Scrn (NEGATIVE) Urine Cocaine Screen (NEGATIVE) U Cannabinoids Screen (NEGATIVE) Ur Drug Screen Comment Ethyl Alcohol mg/dL 10/03/24 10/03/24 10/03/24 Range/Units 21:24 16:31 14:25 WBC (4.8-10.8) x10^3/uL RBC (4.20-5.40) 10^6/uL Hgb (12.0-16.0) g/dL Hct (37.0-47.0) % MCV (81.0-99.0) fL MCH (27.0-31.0) pg MCHC (32.0-36.0) g/dL RDW (12.0-15.0) % Plt Count (130-450) 10^3/uL MPV (7.9-10.8) fL Neut # (Auto) Lymph # (Auto) Creek # (Auto) Eos # (Auto) Baso # (Auto) Absolute Nucleated RBC Total Counted Band Neuts % (Manual) (0 - 10) % Abnorm Lymph % (Manual) % Nucleated RBC % Neutrophils # (Manual) (1.5-6.6) 10^3/uL Lymphocytes # (Manual) (1.5-3.5) 10^3/uL Monocytes # (Manual) (0.0-1.0) 10^3/uL Eosinophils # (Manual) (0-0.7) 10^3/uL Basophils # (Manual) (0-0.1) 10^3/uL Differential Comment WBC Morphology (NORMAL) Platelet Estimate (NORMAL) Platelet Morphology (NORMAL) RBC Morph Micro Appear (NORMAL) Sodium (135-145) mmol/L Potassium (3.5-4.5) mmol/L Chloride (101-111) mmol/L Carbon Dioxide (21-32) mmol/L Anion Gap (6-13) BUN (6-20) mg/dL Creatinine (0.6-1.3) mg/dL Estimated GFR (MDRD) (>89) Glucose (74-104) mg/dL POC Whole Bld Glucose 82 (70-100) mg/dL Estimat Average Glucose (70-100) mg/dL Hemoglobin A1c % (4.27-6.07) % Lactic Acid 1.2 (0.5-2.2) mmol/L Calcium (8.5-10.3) mg/dL Magnesium (1.7-2.3) mg/dL Total Bilirubin (0.2-1.0) mg/dL AST (10-42) IU/L ALT (10-60) IU/L Alkaline Phosphatase (42-121) IU/L Total Protein (6.4-8.9) g/dL Albumin (3.2-5.5) g/dL Globulin (2.1-4.2) g/dL Albumin/Globulin Ratio (1.0-2.2) TSH (0.34-5.60) uIU/mL Free T4 Direct (0.58-1.64) ng/dL Urine Opiates Screen NEGATIVE (NEGATIVE) Ur Buprenorphine Scrn NEGATIVE (NEGATIVE) Ur Oxycodone Screen POSITIVE H (NEGATIVE) Urine Methadone Screen NEGATIVE (NEGATIVE) Ur Barbiturates Screen NEGATIVE (NEGATIVE) Ur Tricyclics Screen NEGATIVE (NEGATIVE) Ur Phencyclidine Scrn NEGATIVE (NEGATIVE) Ur Amphetamine Screen NEGATIVE (NEGATIVE) U Methamphetamines Scrn NEGATIVE (NEGATIVE) U Benzodiazepines Scrn NEGATIVE (NEGATIVE) Urine Cocaine Screen NEGATIVE (NEGATIVE) U Cannabinoids Screen NEGATIVE (NEGATIVE) Ur Drug Screen Comment CUTOFF CONC BELOW: Ethyl Alcohol mg/dL 10/03/24 10/03/24 10/03/24 Range/Units 14:20 14:20 14:20 WBC 30.2 H (4.8-10.8) x10^3/uL RBC 3.21 L (4.20-5.40) 10^6/uL Hgb 10.3 L (12.0-16.0) g/dL Hct 31.6 L (37.0-47.0) % MCV 98.4 (81.0-99.0) fL MCH 32.1 H (27.0-31.0) pg MCHC 32.6 (32.0-36.0) g/dL RDW 19.8 H (12.0-15.0) % Plt Count 158 (130-450) 10^3/uL MPV 10.4 (7.9-10.8) fL Neut # (Auto) Not Reportable Lymph # (Auto) Not Reportable Creek # (Auto) Not Reportable Eos # (Auto) Not Reportable Baso # (Auto) Not Reportable Absolute Nucleated RBC Not Reportable Total Counted 100 Band Neuts % (Manual) 1 (0 - 10) % Abnorm Lymph % (Manual) 0 % Nucleated RBC % Not Reportable Neutrophils # (Manual) 27.8 H (1.5-6.6) 10^3/uL Lymphocytes # (Manual) 1.2 L (1.5-3.5) 10^3/uL Monocytes # (Manual) 1.2 H (0.0-1.0) 10^3/uL Eosinophils # (Manual) 0.0 (0-0.7) 10^3/uL Basophils # (Manual) 0.0 (0-0.1) 10^3/uL Differential Comment MANUAL DIFFERENTIAL WBC Morphology (NORMAL) Platelet Estimate NORMAL (130-450,000) (NORMAL) Platelet Morphology NORMAL APPEARANCE (NORMAL) RBC Morph Micro Appear 2+ TARGET CELLS 2+ ANISOCYTOSIS 2+ HYPOCHROMASIA (NORMAL) Sodium 133 L (135-145) mmol/L Potassium 4.2 (3.5-4.5) mmol/L Chloride 94 L (101-111) mmol/L Carbon Dioxide 32 (21-32) mmol/L Anion Gap 7.0 (6-13) BUN 29 H (6-20) mg/dL Creatinine 1.8 H (0.6-1.3) mg/dL Estimated GFR (MDRD) 27 L (>89) Glucose 94 (74-104) mg/dL POC Whole Bld Glucose (70-100) mg/dL Estimat Average Glucose (70-100) mg/dL Hemoglobin A1c % (4.27-6.07) % Lactic Acid (0.5-2.2) mmol/L Calcium 8.2 L (8.5-10.3) mg/dL Magnesium (1.7-2.3) mg/dL Total Bilirubin 0.7 (0.2-1.0) mg/dL AST 44 H (10-42) IU/L ALT 19 (10-60) IU/L Alkaline Phosphatase 228 H (42-121) IU/L Total Protein 4.3 L (6.4-8.9) g/dL Albumin 1.9 L (3.2-5.5) g/dL Globulin 2.4 (2.1-4.2) g/dL Albumin/Globulin Ratio 0.8 L (1.0-2.2) TSH 10.97 H (0.34-5.60) uIU/mL Free T4 Direct 0.77 (0.58-1.64) ng/dL Urine Opiates Screen (NEGATIVE) Ur Buprenorphine Scrn (NEGATIVE) Ur Oxycodone Screen (NEGATIVE) Urine Methadone Screen (NEGATIVE) Ur Barbiturates Screen (NEGATIVE) Ur Tricyclics Screen (NEGATIVE) Ur Phencyclidine Scrn (NEGATIVE) Ur Amphetamine Screen (NEGATIVE) U Methamphetamines Scrn (NEGATIVE) U Benzodiazepines Scrn (NEGATIVE) Urine Cocaine Screen (NEGATIVE) U Cannabinoids Screen (NEGATIVE) Ur Drug Screen Comment Ethyl Alcohol < 10.0 mg/dL Assessment/Plan Problem List (1) Sepsis: Impression: 10/04: mental status is slightly improved. She wakes up and is oriented to self and to place, but not to time. states this is not unusual. She has not had any fevers and her leukocytosis is decreasing. remains very sleepy. Blood cultures show no growth after 1 day.. on admission: 78-year-old female with multiple medical problems presents to the emergency department with acute mental status changes white blood cell count of 30.2, afebrile heart rate in the low 100s and blood pressure as low as 97/57. She meets sepsis criteria. I am admitting her for sepsis with presumed source of urinary tract.Lactic acid is 1.2. I will not repeat this. On exam her mucous membranes are dry and she has not been eating and drinking well at home. She has a Hawthorne in place and her urinary output over the last 24 hours is approximately 50 cc/h over the last 24 hours as determined by calculations of urinary output provided by her . Qualifiers: Sepsis acute organ dysfunction status: with acute organ dysfunction S epsis type: sepsis due to unspecified organism Severe sepsis acute organ dysfunction type: encephalopathy Severe sepsis shock status: without septic shock Qualified Code(s): A41.9 - Sepsis, unspecified organism; R65.20 - Severe sepsis without septic shock; G93.41 - Metabolic encephalopathy (2) Acute UTI: Impression: Urine culture done on the date of her initial emergency department visit shows E. coli. It is sensitive to cefepime. Which is her current antibiotic therapy. (3) Acute urinary retention: Impression: Diagnosed on 01 October at the time of her ED visit she is bringing in a Hawthorne which is in place from home. She was due to follow-up with urology in the outpatient environment. I will leave the Hawthorne in place. (4) Generalized edema due to fluid overload: Impression: Further discussion with her today. She had been off the Bumex for about a month. There was some difficulty with obtaining a prescription and then some difficulty with [facility]. She has been like this with his generalized edema for about a week. I am aggressively diuresing her she has gotten Lasix 40 mg twice today. She has not had increase in her creatinine at this point. I am also continuing with her home Bumex dosing. (5) Meningioma: Impression: By history. It appears this has not been followed up. We will need to keep this in mind and consider MRI while she is here is getting her out of the house to appointments is very very difficult (6) Diastolic heart failure with preserved ejection fraction: Impression: Chest x-ray shows cardiomegaly with pulmonary vascular congestion. Her BNP was 238 at her emergency department visit on the . She has severe peripheral edema Review of records shows most recent echo done at [facility] in March 2024 showing ejection fraction of 55 to 60% with severe diastolic dysfunction. (7) Chronic kidney disease, stage 4 (severe): Impression: Creatinine has not worsened since admission. I am continuing to diurese the patient. (8) Insulin dependent diabetes mellitus: Impression: Her A1c is 4.8%. I have changed her blood glucose testing to twice daily. I have discontinued her insulin and would recommend against continuing Trulicity in the outpatient environment. (9) Chronic atrial fibrillation: Impression: Home medication of Eliquis, renal dosing. No beta-blockers on the home med regimen. Although careful review of notes does show previously on metoprolol succinate 25 mg a day. (10) Decubital ulcer: Impression: Please see my physical exam for documentation of the ulcerations. I have asked the to bring back her pressure offloading boot for the left heel. I do not feel any bogginess underneath the heel ulceration and I do not see any surrounding cellulitis. Qualifiers: Pressure injury location: heel (11) Subclinical hypothyroidism: Impression: Elevated TSH with normal free T4. She does carry a previous diagnosis of subclinical hypothyroidism. Would defer further management to the outpatient environment. I have spent 55 minutes in the care of this patient today. This includes time [id number], review and ordering of diagnostic imaging and laboratory studies.. Monitoring the patient's signs symptoms, evaluation of medication effectiveness and patient's response to treatment.
[2024-10-04] MEDS: FUROSEMIDE 40 MG/4 ML VIAL IVP SCH (10:50)
[2024-10-04] MEDS: NYSTATIN CREAM 15 GM TUBE TOP SCH (10:51)
--- NOTE | 2024-10-04 14:45 | PHARMACY PROGRESS NOTE ---
Best Possible Medication History Admit Date and Time: 10/03/24 [id number] Home Medications Medication Instructions Recorded Confirmed Type Diabetic Shoes 09/04/24 09/04/24 History Permanent Disabled Placard 09/04/24 09/04/24 History blood-glucose sensor (Dexcom G6 09/04/24 09/04/24 History Sensor device) incontinence pad, liner, disp 09/04/24 09/04/24 History (Bladder Control Pad Ultra Plus) acetaminophen 500 mg tablet 500 mg PO Q8H PRN fever or pain 09/19/24 10/03/24 History albuterol sulfate 2.5 mg/3 mL 2.5 mg inhalation Q2H PRN 09/19/24 10/03/24 History (0.083 %) solution for nebulization shortness of breath or wheezing cholecalciferol (vitamin D3) 25 25 mcg PO QDAY 09/19/24 10/03/24 History mcg (1,000 unit) capsule coenzyme Q10 100 mg capsule (Co 100 mg PO QDAY 09/19/24 10/03/24 History Q-10) colchicine 0.6 mg tablet 1.2 mg PO ONCE PRN GOUT FLARE 09/19/24 10/04/24 History melatonin 3 mg tablet 6 mg PO HS PRN sleep 09/19/24 10/03/24 History allopurinol 300 mg tablet 300 mg PO QDAY gout prevention #90 09/20/24 10/03/24 Rx tabs apixaban 2.5 mg tablet 2.5 mg PO BID a- fib #180 tabs 09/20/24 10/03/24 Rx atorvastatin 10 mg tablet (Lipitor) 10 mg PO QPM high cholesterol #90 09/20/24 10/03/24 Rx tabs bumetanide 1 mg tablet 2 mg (2 x 1 mg) PO BID DIURETIC 09/20/24 10/03/24 Rx #180 tabs cetirizine 10 mg chewable tablet 5 mg (1/2 x 10 mg) PO QDAY 09/20/24 10/03/24 Rx ALLERGIES #45 tabs dulaglutide 1.5 mg/0.5 mL 1.5 mg (0.5 mL) subcut QWEEK #2 mL 09/20/24 10/03/24 Rx subcutaneous pen injector ([facility]) esomeprazole magnesium 40 mg 40 mg PO QDAY heartburn #90 caps 09/20/24 10/03/24 Rx capsule,delayed release fluticasone propionate 50 1 spray intranasal QDAY allergic 09/20/24 10/03/24 Rx mcg/actuation nasal rhinitis #16 grams spray,suspension gabapentin 300 mg capsule 900 mg (3 x 300 mg) PO BID PAIN 09/20/24 10/03/24 Rx #540 caps insulin glargine 100 unit/mL (3 15 unit (0.15 mL) subcut QAM DM2 09/20/24 10/03/24 Rx mL) subcutaneous pen (Lantus #15 mL Solostar U-100 Insulin) metolazone 5 mg tablet 5 mg PO .COMPLEX CONGESTIVE HEART 09/20/24 10/03/24 Rx FAILURE #32 tabs midodrine 10 mg tablet 10 mg PO TID for low BP #270 tabs 09/20/24 10/03/24 Rx pen needle, diabetic 31 gauge x #100 ea 09/20/24 09/20/24 Rx 5/16" potassium chloride 10 mEq 10 meq PO QDAY potassium 09/20/24 10/03/24 Rx tablet,extended release (Klor-Con) supplement #90 tabs cephalexin 500 mg capsule 500 mg PO TID 7 days #21 caps 10/01/24 10/03/24 Rx trazodone 50 mg tablet 50 mg PO QPM depression and 10/04/24 10/04/24 History insomnia Processed by: Pharmacy Medications reviewed in ED?: Yes Medication History completed: Yes Patient Interview: Completed Secondary Source(s): Insurance records [facility] Statement: As the person ultimately responsible for medication therapy, providers are able to order a medication from an existing home medication list in [facility] via the "Reconcile Routine" prior to Confirmation of that medication by child support specialist. Such practice is discouraged except when the physician, in their clinical judgment, deems that a medical need exists for a medication without regard to previous use.
[2024-10-04] MEDS: FUROSEMIDE 40 MG/4 ML VIAL IVP ONE (16:43)
[2024-10-04] MEDS: ASCORBIC ACID 500 MG TABLET PO SCH (16:43)
[2024-10-04] MEDS: MULTIVITAMIN W/MINERALS TABLET PO SCH (16:43)
[2024-10-04] MEDS: traZODone 50 MG TABLET PO SCH (22:26)
[2024-10-05] MEDS: CHOLECALCIFEROL 25 MCG TABLET PO SCH (10:21)
[2024-10-05] MEDS: oxyCODONE 5 MG TABLET PO PRN ×2 (10:39→21:10)
--- NOTE | 2024-10-05 16:29 | PROVIDER PROGRESS NOTE ---
Subjective Prog Note Date Prog Note Date: 10/05/24 Subjective Subjective: Manisha feels much better today. She is sitting up in bed and awake. she says her arms hurt less and her breathing is better. Lab has tried several times to get blood from her and they are unable. She does have one functional IV that was hard to get, and therefore we do not want to risk losing it by using it as a place to draw blood. Her Conor is at the bedside this afternoon and I have explained to him that I do not know how this diuresis is effecting her renal function. We discussed the possibility of a central line (IJ), and she and Conor would both like to avoid that. She has had that before. I explained to her how a PICC line works and she is open to that option. I have discussed this with anesthesia, who is unable to do the PICC at this time. Current Medications Current Medications Current Medications: Current Medications Generic Name Dose Route Start Last Admin Trade Name Freq PRN Reason Stop Dose Admin Albuterol 2.5 mg 10/03/24 19:14 Albuterol Neb 2.5 Mg/3 Ml INH Q2H PRN shortness of breath or wheezing Allopurinol 300 mg 10/04/24 09:00 10/05/24 10:22 Allopurinol 100 Mg Tablet PO 300 mg DAILY CARLEE Administration Apixaban 2.5 mg 10/03/24 21:00 10/05/24 10:22 Apixaban 2.5 Mg Tablet PO 2.5 mg BID CARLEE Administration Ascorbic Acid 500 mg 10/04/24 17:00 10/05/24 10:23 Ascorbic Acid 500 Mg Tablet PO 500 mg DAILY CARLEE Administration Atorvastatin Calcium 10 mg 10/03/24 21:00 10/04/24 22:20 Atorvastatin 10 Mg Tablet PO 10 mg QPM CARLEE Administration Bumetanide 2 mg 10/03/24 21:00 10/05/24 10:20 Bumetanide 1 Mg Tablet PO 2 mg BID CARLEE Administration Cetirizine HCl 5 mg 10/04/24 09:00 10/05/24 10:21 Cetirizine 10 Mg Tablet PO 5 mg DAILY CARLEE Administration Cholecalciferol 50 mcg 10/05/24 09:00 10/05/24 10:21 Cholecalciferol 25 Mcg Tablet PO 50 mcg DAILY CARLEE Administration Fluticasone Propionate 1 sprays 10/04/24 09:00 10/05/24 10:23 Fluticasone Nasal [place] NELLA 1 sprays DAILY CARLEE Administration Furosemide 40 mg 10/04/24 10:00 10/05/24 10:21 Furosemide 40 Mg/4 Ml Vial IVP 40 mg DAILY CARLEE Administration Gabapentin 600 mg 10/03/24 22:00 10/05/24 10:21 Gabapentin 300 Mg Capsule PO 600 mg BID CARLEE Administration Cefepime HCl 1 gm/ Sodium 100 mls @ 200 mls/hr 10/04/24 04:00 10/05/24 16:17 Chloride IV 200 mls/hr 0400,1600 CARLEE Administration Melatonin 6 mg 10/03/24 19:14 Melatonin 3 Mg Tablet PO HS PRN sleep Metolazone 5 mg 10/06/24 09:00 Metolazone 2.5 Mg Tablet PO TuSa@0900 CARLEE Multi-Ingredient Ointment 1 applic 10/03/24 23:30 10/05/24 10:23 Zinc Oxide 20% Oint 30 Gm Tube TOP 1 applic BID CARLEE Administration Multivitamins/Minerals 1 tab 10/04/24 17:00 10/05/24 10:22 Multivitamin W/Minerals Tablet PO 1 tab DAILYWM CARLEE Administration Nystatin 1 applic 10/04/24 10:00 10/05/24 10:23 Nystatin Cream 15 Gm Tube TOP 1 applic BID CARLEE Administration Oxycodone HCl 2.5 - 5 mg 10/03/24 19:14 10/05/24 10:39 Oxycodone 5 Mg Tablet PO 2.5 mg Q6H PRN Administration pain Pantoprazole Sodium 40 mg 10/04/24 09:00 10/05/24 10:20 Pantoprazole 40 Mg Tablet PO 40 mg DAILY CARLEE Administration Patient Own Refrig 1.5 each 10/06/24 09:00 Med (Trulicity 1.5 SUBQ Mg) Q7D CARLEE Potassium Chloride 10 meq 10/04/24 08:00 10/05/24 10:22 Potassium Chloride 10 Meq Capsule PO 10 meq DAILYWM CARLEE Administration Trazodone HCl 50 mg 10/04/24 09:00 10/04/24 22:26 Trazodone 50 Mg Tablet PO Not Given HS [facility] Objective Vital Signs/Intake & Output Reviewed Vital Signs: Yes Vital Signs: Vital Signs x48h Temp Pulse Resp BP Pulse Ox 10/04/24 07:42 36.3 C L 112 H 20 102/54 L 94 Intake & Output: Intake & Output 10/02/24 10/03/24 10/04/24 10/05/24 23:59 23:59 23:59 23:59 Intake Total 100 / 100 1800 / 1800 350 / 350 Output Total 550 / 550 1300 / 1300 650 / 650 Balance -450 / -450 500 / 500 -300 / -300 Weight (kg) 136 kg Objective General Appearance: positive No acute distress and Lethargic Eyes Bilateral: positive Normal inspection and PERRL ENT: positive ENT inspection nml Neck: positive Nml inspection Respiratory: positive No respiratory distress and Breath sounds nml (diminished at bases) Cardiovascular: positive Regular rate & rhythm Abdomen: positive No distention Comments/Other: Wounds to the left heel has an area of eschar which is dark but not black. The underlying tissue was firm without bogginess and there is no surrounding cellulitis The right lower abdominal wall has a 5 cm ovoid patch with beefy granulation tissue which is oozing blood. There is no depth. At the gluteal cleft there is skin breakdown,full thickness, but no depth. Today, there is improvement of the edema in her upper extremities, there is some wrinkling of the skin, and less weeping. lower extremities remain unchanged. I do not have current data as to renal function. Her urine output has been about 300cc since 0700 this AM. (over 8 hours) Lab Results 10/04/24 05:49 10/04/24 05:49 Other Labs: Lab Results x24hrs 10/05/24 10/04/24 10/04/24 Range/Units 07:51 20:40 16:41 POC Whole Bld Glucose 139 135 130 (70-100) mg/dL Assessment/Plan Problem List (1) Sepsis: Impression: 10/05:Alert and oriented x 3. I do not have data regarding her leukocytosis today. Blood cultures show no growth x 2 days. Urine cultures positive for E. coli sensitive to cefepime. 10/04: mental status is slightly improved. She wakes up and is oriented to self and to place, but not to time. states this is not unusual. She has not had any fevers and her leukocytosis is decreasing. remains very sleepy. Blood cultures show no growth after 1 day.. on admission: 78-year-old female with multiple medical problems presents to the emergency department with acute mental status changes white blood cell count of 30.2, afebrile heart rate in the low 100s and blood pressure as low as 97/57. She meets sepsis criteria. I am admitting her for sepsis with presumed source of urinary tract.Lactic acid is 1.2. I will not repeat this. On exam her mucous membranes are dry and she has not been eating and drinking well at home. She has a Hawthorne in place and her urinary output over the last 24 hours is approximately 50 cc/h over the last 24 hours as determined by calculations of urinary output provided by her . Qualifiers: Sepsis acute organ dysfunction status: with acute organ dysfunction S epsis type: sepsis due to unspecified organism Severe sepsis acute organ dysfunction type: encephalopathy Severe sepsis shock status: without septic shock Qualified Code(s): A41.9 - Sepsis, unspecified organism; R65.20 - Severe sepsis without septic shock; G93.41 - Metabolic encephalopathy (2) Acute UTI: Impression: Urine culture done on the date of her initial emergency department visit shows E. coli. It is sensitive to cefepime. Which is her current antibiotic therapy. (3) Acute urinary retention: Impression: Diagnosed on 01 October at the time of her ED visit she is bringing in a Hawthorne which is in place from home. She was due to follow-up with urology in the outpatient environment. I will leave the Hawthorne in place. Hawthorne shows cloudy dark urine about 40 cc in the bag now there have been about 300 cc of output since the beginning of the shift 8 hours ago. (4) Generalized edema due to fluid overload: Impression: Further discussion with her today. She had been off the Bumex for about a month. There was some difficulty with obtaining a prescription and [facility]. She has been like this with his generalized edema for about a week. I have been aggressively diuresing her with 40 mg of Lasix twice daily and additional to her home Bumex which has been effective clinically. Intake and output data is not accurate. Today I see clinical improvement with reduction in the tenseness in her upper extremity edema. She has gotten 40 of Lasix IV this morning as well as her home Bumex. I have no data with regards to her renal function at this time and quite hesitant to give her a second dose of Lasix today. (5) Meningioma: Impression: By history. It appears this has not been followed up. We will need to keep this in mind and consider MRI while she is here is getting her out of the house to appointments is very very difficult (6) Diastolic heart failure with preserved ejection fraction: Impression: Chest x-ray shows cardiomegaly with pulmonary vascular congestion. Her BNP was 238 at her emergency department visit on the . She has severe peripheral edema Review of records shows most recent echo done at [facility] in March 2024 showing ejection fraction of 55 to 60% with severe diastolic dysfunction. (7) Chronic kidney disease, stage 4 (severe): Impression: Creatinine has not worsened since admission. I am continuing to diurese the patient.I have no data on her renal function today. Her Conor is at the bedside this afternoon and I have explained to him that I do not know how this diuresis is effecting her renal function. We discussed the possibility of a central line (IJ), and she and Conor would both like to avoid that. She has had that before. I explained to her how a PICC line works and she is open to that option. I have discussed this with anesthesia, who is unable to do the PICC at this time (8) Insulin dependent diabetes mellitus: Impression: Her A1c is 4.8%. I have changed her blood glucose testing to twice daily. I have discontinued her insulin and would recommend against continuing Trulicity in the outpatient environment. (9) Chronic atrial fibrillation: Impression: Home medication of Eliquis, renal dosing. No beta-blockers on the home med regimen. Although careful review of notes does show previously on metoprolol succinate 25 mg a day. (10) Decubital ulcer: Impression: Please see my physical exam for documentation of the ulcerations. Pressure offloading boot is in place at the left heel. I do not feel any bogginess underneath the heel ulceration and I do not see any surrounding cellulitis. Qualifiers: Pressure injury location: heel (11) Subclinical hypothyroidism: Impression: Elevated TSH with normal free T4. She does carry a previous diagnosis of subclinical hypothyroidism. Would defer further management to the outpatient environment. I have spent 40 minutes in the care of this patient today. This includes time [id number], review and ordering of diagnostic imaging and laboratory studies.. Monitoring the patient's signs symptoms, evaluation of medication effectiveness and patient's response to treatment.
[2024-10-05] MEDS: ACETAMINOPHEN 325 MG TABLET PO PRN (18:18)
[2024-10-05] MEDS: DICLOFENAC SODIUM 1% GEL 50 GM TUBE TOP PRN (20:02)
[2024-10-06] MEDS: DULAGLUTIDE 1.5 MG SUBQ SCH (10:45)
[2024-10-06] MEDS: metOLazone 2.5 MG TABLET PO SCH (11:03)
--- NOTE | 2024-10-06 12:27 | XRAY Report ---
PROCEDURE: XR Chest 1V INDICATIONS: line placement TECHNIQUE: One view of the chest was acquired. COMPARISON: 10/01/2024. FINDINGS: Surgical changes and devices: Left-sided central venous catheter with tip projecting over the proxim al right atrium.. Lungs and pleura: No pleural effusions or pneumothorax. Prominent interstitial markings. No consoli dation. Mediastinum: Mediastinal contours appear normal. Heart size is enlarged. Bones and chest wall: No suspicious bony lesions. Overlying soft tissues appear unremarkable. IMPRESSION: Left-sided central venous catheter tip projects over the proximal right atrium. Redemonstration of ca rdiomegaly and pulmonary vascular congestion. Reviewed by: Jeremy Stinson MD on 10/06/2024 12:26 PM PST Approved by: Jeremy Stinson MD on 10/06/2024 12:26 PM PST Station ID: [id number]
--- NOTE | 2024-10-06 13:19 | PROVIDER PROGRESS NOTE ---
Subjective Prog Note Date Prog Note Date: 10/06/24 Subjective Subjective: continues to feel a little better. lost IV access this AM. Were unable to get labs and unable to get a PICC line yesterday, then this AM lost the PIV that was in place. No option for PICC today. Therefore, we are going to need central line, discussed w patient and , and they agree that this is best. Current Medications Current Medications Current Medications: Current Medications Generic Name Dose Route Start Last Admin Trade Name Freq PRN Reason Stop Dose Admin Acetaminophen 650 mg 10/05/24 18:09 10/05/24 18:18 Acetaminophen 325 Mg Tablet PO 650 mg Q4HR PRN Administration Pain or Fever > 38C (100.4F) Albuterol 2.5 mg 10/03/24 19:14 Albuterol Neb 2.5 Mg/3 Ml INH Q2H PRN shortness of breath or wheezing Allopurinol 300 mg 10/04/24 09:00 10/06/24 11:06 Allopurinol 100 Mg Tablet PO 300 mg DAILY CARLEE Administration Apixaban 2.5 mg 10/03/24 21:00 10/06/24 11:07 Apixaban 2.5 Mg Tablet PO 2.5 mg BID CARLEE Administration Ascorbic Acid 500 mg 10/04/24 17:00 10/06/24 11:07 Ascorbic Acid 500 Mg Tablet PO 500 mg DAILY CARLEE Administration Atorvastatin Calcium 10 mg 10/03/24 21:00 10/05/24 21:11 Atorvastatin 10 Mg Tablet PO 10 mg QPM CARLEE Administration Bumetanide 2 mg 10/03/24 21:00 10/06/24 11:03 Bumetanide 1 Mg Tablet PO 2 mg BID CARLEE Administration Cetirizine HCl 5 mg 10/04/24 09:00 10/06/24 11:05 Cetirizine 10 Mg Tablet PO 5 mg DAILY CARLEE Administration Cholecalciferol 50 mcg 10/05/24 09:00 10/06/24 13:18 Cholecalciferol 25 Mcg Tablet PO Not Given DAILY CARLEE Diclofenac Sodium 2 gm 10/05/24 19:53 10/05/24 20:02 Diclofenac Sodium 1% Gel 50 Gm Tube TOP 2 gm QID PRN Administration Mild Pain (Level 1-3) Fluticasone Propionate 1 sprays 10/04/24 09:00 10/06/24 11:07 Fluticasone Nasal [place] NELLA 1 sprays DAILY CARELE Administration Furosemide 40 mg 10/04/24 10:00 10/05/24 10:21 Furosemide 40 Mg/4 Ml Vial IVP 40 mg DAILY CARLEE Administration Gabapentin 600 mg 10/03/24 22:00 10/06/24 11:05 Gabapentin 300 Mg Capsule PO 600 mg BID CARLEE Administration Cefepime HCl 1 gm/ Sodium 100 mls @ 200 mls/hr 10/04/24 04:00 10/06/24 04:21 Chloride IV Infused 0400,1600 CARLEE Infusion Melatonin 6 mg 10/03/24 19:14 Melatonin 3 Mg Tablet PO HS PRN sleep Metolazone 5 mg 10/06/24 09:00 10/06/24 11:03 Metolazone 2.5 Mg Tablet PO 5 mg TuSa@0900 CARLEE Administration Multivitamins/Minerals 1 tab 10/04/24 17:00 10/06/24 11:06 Multivitamin W/Minerals Tablet PO 1 tab DAILYWM CARLEE Administration Nystatin 1 applic 10/04/24 10:00 10/06/24 11:07 Nystatin Cream 15 Gm Tube TOP 1 applic BID CARLEE Administration Oxycodone HCl 2.5 - 5 mg 10/05/24 19:56 10/05/24 21:10 Oxycodone 5 Mg Tablet PO 5 mg Q4HR PRN Administration pain Pantoprazole Sodium 40 mg 10/04/24 09:00 10/06/24 11:06 Pantoprazole 40 Mg Tablet PO 40 mg DAILY CARLEE Administration Patient Own Refrig 1.5 each 10/06/24 09:00 10/06/24 10:45 Med (Trulicity 1.5 SUBQ Not Given Mg) Q7D CARLEE Potassium Chloride 10 meq 10/04/24 08:00 10/06/24 11:06 Potassium Chloride 10 Meq Capsule PO 10 meq DAILYWM CARLEE Administration Trazodone HCl 50 mg 10/04/24 09:00 10/05/24 21:11 Trazodone 50 Mg Tablet PO 50 mg HS CARLEE Administration Zinc Oxide 1 gm 10/06/24 21:00 Cod Liver Oil/Zinc Oxide 113 Gm Tube TOP BID CARLEE Objective Vital Signs/Intake & Output Reviewed Vital Signs: Yes Vital Signs: Vital Signs x48h Temp Pulse Resp BP Pulse Ox 10/04/24 07:42 36.3 C L 112 H 20 102/54 L 94 Intake & Output: Intake & Output 10/03/24 10/04/24 10/05/24 10/06/24 23:59 23:59 23:59 23:59 Intake Total 100 / 100 1800 / 1800 650 / 650 220 / 220 Output Total 550 / 550 1300 / 1300 750 / 750 55 / 55 Balance -450 / -450 500 / 500 -100 / -100 165 / 165 Weight (kg) 136 kg Objective General Appearance: positive No acute distress Eyes Bilateral: positive Normal inspection ENT: positive ENT inspection nml Neck: positive Nml inspection (IJ line in place ) Respiratory: positive Chest non-tender, No respiratory distress and Breath sounds nml (but diminished at bases) Abdomen: positive No distention Comments/Other: Wounds to the left heel has an area of eschar which is dark but not black. The underlying tissue was firm without bogginess and there is no surrounding cellulitis The right lower abdominal wall has a 5 cm ovoid patch with beefy granulation tissue which is oozing blood. There is no depth. there is not steady improvement in edema Seems about the same, with decreased in the upper, but still weeping at the lower extremities. Lab Results 10/06/24 13:25 10/06/24 13:25 Other Labs: Lab Results x24hrs 10/06/24 10/05/24 Range/Units 08:00 16:54 POC Whole Bld Glucose 188 187 (70-100) mg/dL Assessment/Plan Problem List (1) Sepsis: Impression: 10/06: She dontinues to improve with regards to her mental status. She had central line placement today and her leukocytosis has resolved. no fevers. Blood cultures with no growth. 10/05:Alert and oriented x 3. I do not have data regarding her leukocytosis today. Blood cultures show no growth x 2 days. Urine cultures positive for E. coli sensitive to cefepime. 10/04: mental status is slightly improved. She wakes up and is oriented to self and to place, but not to time. states this is not unusual. She has not had any fevers and her leukocytosis is decreasing. remains very sleepy. Blood cultures show no growth after 1 day.. on admission: 78-year-old female with multiple medical problems presents to the emergency department with acute mental status changes white blood cell count of 30.2, afebrile heart rate in the low 100s and blood pressure as low as 97/57. She meets sepsis criteria. I am admitting her for sepsis with presumed source of urinary tract.Lactic acid is 1.2. I will not repeat this. On exam her mucous membranes are dry and she has not been eating and drinking well at home. She has a Diallo in place and her urinary output over the last 24 hours is approximately 50 cc/h over the last 24 hours as determined by calculations of urinary output provided by her . Qualifiers: Sepsis acute organ dysfunction status: with acute organ dysfunction S epsis type: sepsis due to unspecified organism Severe sepsis acute organ dysfunction type: encephalopathy Severe sepsis shock status: without septic shock Qualified Code(s): A41.9 - Sepsis, unspecified organism; R65.20 - Severe sepsis without septic shock; G93.41 - Metabolic encephalopathy (2) Acute UTI: Impression: Urine culture done on the date of her initial emergency department visit shows E. coli. It is sensitive to cefepime. Which is her current antibiotic therapy. She is day35. (3) Acute urinary retention: Impression: Diagnosed on 01 October at the time of her ED visit she is bringing in a Diallo which is in place from home. She was due to follow-up with urology in the outpatient environment. I will leave the Diallo in place. Diallo shows cloudy dark urine about 40 cc in the bag now there have been about 300 cc of output since the beginning of the shift 8 hours ago. overnight RN reports some blood in the diallo bag, just dark urine today. (4) Generalized edema due to fluid overload: Impression: She had been off the Bumex for about a month. There was some difficulty with obtaining a prescription and then some difficulty with [facility]. She has been like this with his generalized edema for about a week. I am giving her two doses of Lasix in addition to home bumex today. I am adding albumin in addition to this. She has not significantly increased her Cr (1.8 to 2.1), and she continued to be fluid overloaded. She improved, then stagnated. . Will continue to diurese. Her I/O does not show significant loss, nor do her weights. will consider lasix gtt. . (5) Meningioma: Impression: By history. It appears this has not been followed up. We will need to keep this in mind and consider MRI while she is here is getting her out of the house to appointments is very very difficult (6) Diastolic heart failure with preserved ejection fraction: Impression: Chest x-ray shows cardiomegaly with pulmonary vascular congestion. Her BNP was 238 at her emergency department visit on the . She has severe peripheral edema Review of records shows most recent echo done at [facility] in March 2024 showing ejection fraction of 55 to 60% with severe diastolic dysfunction. (7) Chronic kidney disease, stage 4 (severe): Impression: Creatinine has not worsened since admission. I am continuing to diurese the patient. no worseing despite diuresis. (8) Insulin dependent diabetes mellitus: Impression: Her A1c is 4.8%. I have changed her blood glucose testing to twice daily. I have discontinued her insulin and would recommend against continuing Trulicity in the outpatient environment. (9) Chronic atrial fibrillation: Impression: Home medication of Eliquis, renal dosing. No beta-blockers on the home med regimen. Although careful review of notes does show previously on metoprolol succinate 25 mg a day. (10) Decubital ulcer: Impression: Please see my physical exam for documentation of the ulcerations. Pressure offloading boot is in place at the left heel. I do not feel any bogginess underneath the heel ulceration and I do not see any surrounding cellulitis. Qualifiers: Pressure injury location: heel (11) Subclinical hypothyroidism: Impression: Elevated TSH with normal free T4. She does carry a previous diagnosis of subclinical hypothyroidism. Would defer further management to the outpatient environment. I have spent 36 minutes in the care of this patient today. This includes time [id number], review and ordering of diagnostic imaging and laboratory studies.. Monitoring the patient's signs symptoms, evaluation of medication effectiveness and patient's response to treatment.
[2024-10-06 13:34] LABS: BASOPHILS % (AUTO) 0.2 %; EOSINOPHILS # (AUTO) 0.1 10^3/uL (0.0-0.7); EOSINOPHILS % (AUTO) 0.7 %; HCT - HEMATOCRIT 26.8 % (37.0-47.0); HGB - HEMOGLOBIN 9.2 g/dL (12.0-16.0); LYMPHOCYTES # (AUTO) 1.3 10^3/uL (1.5-3.5); MEAN CORPUSCULAR HEMOGLOBIN 32.7 pg (27.0-31.0); MEAN CORPUSCULAR HGB CONC 34.3 g/dL (32.0-36.0); MEAN CORPUSCULAR VOLUME 95.4 fL (81.0-99.0); MEAN PLATELET VOLUME 10.1 fL (7.9-10.8); MONOCYTES # (AUTO) 0.4 10^3/uL (0.0-1.0); MONOCYTES % (AUTO) 4.1 %; NEUTROPHILS # (AUTO) 8.5 10^3/uL (1.5-6.6); NEUTROPHILS % (AUTO) 81.4 %; NRBC ABSOLUTE COUNT (AUTO) 0.05 x10^3/uL; NUCLEATED RED BLOOD CELLS AUTO 0.5 /100WBC; PLT - PLATELET COUNT 84 10^3/uL (130-450); RED BLOOD COUNT 2.81 10^6/uL (4.20-5.40); RED CELL DISTRIBUTION WIDTH 19.1 % (12.0-15.0); WHITE BLOOD COUNT 10.5 x10^3/uL (4.8-10.8)
[2024-10-06 14:23] LABS: CALCIUM 7.8 mg/dL (8.5-10.3); CREATININE 2.1 mg/dL (0.6-1.3); POTASSIUM 3.5 mmol/L (3.5-4.5)
[2024-10-06] MEDS ORDERED: FUROSEMIDE 40 MG/4 ML VIAL IVP SCH (15:00)
[2024-10-06] MEDS: ALBUMIN 25% 12.5 GM/50 ML VIAL IV STA (15:24)
[2024-10-06] MEDS: COD LIVER OIL/ZINC OXIDE 113 GM TUBE TOP SCH (20:54)
[2024-10-07 06:34] LABS: BASOPHILS % (AUTO) 0.2 %; EOSINOPHILS # (AUTO) 0.1 10^3/uL (0.0-0.7); EOSINOPHILS % (AUTO) 0.9 %; HCT - HEMATOCRIT 25.7 % (37.0-47.0); HGB - HEMOGLOBIN 8.7 g/dL (12.0-16.0); LYMPHOCYTES % (AUTO) 8.6 %; MEAN CORPUSCULAR HEMOGLOBIN 32.3 pg (27.0-31.0); MEAN CORPUSCULAR HGB CONC 33.9 g/dL (32.0-36.0); MEAN CORPUSCULAR VOLUME 95.5 fL (81.0-99.0); MONOCYTES # (AUTO) 0.3 10^3/uL (0.0-1.0); MONOCYTES % (AUTO) 2.8 %; NEUTROPHILS # (AUTO) 9.9 10^3/uL (1.5-6.6); NEUTROPHILS % (AUTO) 85.8 %; NRBC ABSOLUTE COUNT (AUTO) 0.02 x10^3/uL; NUCLEATED RED BLOOD CELLS AUTO 0.2 /100WBC; PLT - PLATELET COUNT 80 10^3/uL (130-450); RED BLOOD COUNT 2.69 10^6/uL (4.20-5.40); RED CELL DISTRIBUTION WIDTH 19.2 % (12.0-15.0); WHITE BLOOD COUNT 11.5 x10^3/uL (4.8-10.8)
[2024-10-07 06:43] LABS: CALCIUM 7.9 mg/dL (8.5-10.3); CREATININE 2.2 mg/dL (0.6-1.3); POTASSIUM 3.5 mmol/L (3.5-4.5)
--- NOTE | 2024-10-07 13:26 | PROVIDER PROGRESS NOTE ---
Subjective Prog Note Date Prog Note Date: 10/07/24 Subjective Subjective: She is awake and alert today. at bedside. She has minimal complaints. is not putting out urine. Current Medications Current Medications Current Medications: Current Medications Generic Name Dose Route Start Last Admin Trade Name Freq PRN Reason Stop Dose Admin Acetaminophen 650 mg 10/05/24 18:09 10/05/24 18:18 Acetaminophen 325 Mg Tablet PO 650 mg Q4HR PRN Administration Pain or Fever > 38C (100.4F) Albuterol 2.5 mg 10/03/24 19:14 Albuterol Neb 2.5 Mg/3 Ml INH Q2H PRN shortness of breath or wheezing Allopurinol 300 mg 10/04/24 09:00 10/07/24 10:31 Allopurinol 100 Mg Tablet PO 300 mg DAILY CARLEE Administration Apixaban 2.5 mg 10/03/24 21:00 10/07/24 07:35 Apixaban 2.5 Mg Tablet PO Not Given BID CARLEE Ascorbic Acid 500 mg 10/04/24 17:00 10/07/24 10:31 Ascorbic Acid 500 Mg Tablet PO 500 mg DAILY CARLEE Administration Atorvastatin Calcium 10 mg 10/03/24 21:00 10/06/24 20:50 Atorvastatin 10 Mg Tablet PO 10 mg QPM CARLEE Administration Bumetanide 2 mg 10/03/24 21:00 10/07/24 10:29 Bumetanide 1 Mg Tablet PO 2 mg BID CARLEE Administration Cetirizine HCl 5 mg 10/04/24 09:00 10/07/24 10:30 Cetirizine 10 Mg Tablet PO 5 mg DAILY CARLEE Administration Cholecalciferol 50 mcg 10/05/24 09:00 10/07/24 10:30 Cholecalciferol 25 Mcg Tablet PO 50 mcg DAILY CARLEE Administration Diclofenac Sodium 2 gm 10/05/24 19:53 10/05/24 20:02 Diclofenac Sodium 1% Gel 50 Gm Tube TOP 2 gm QID PRN Administration Mild Pain (Level 1-3) Fluticasone Propionate 1 sprays 10/04/24 09:00 10/07/24 10:30 Fluticasone Nasal [place] NELLA 1 sprays DAILY CARLEE Administration Furosemide 40 mg 10/04/24 10:00 10/07/24 10:28 Furosemide 40 Mg/4 Ml Vial IVP 40 mg DAILY CARLEE Administration Gabapentin 600 mg 10/03/24 22:00 10/07/24 10:30 Gabapentin 300 Mg Capsule PO 600 mg BID CARLEE Administration Cefepime HCl 1 gm/ Sodium 100 mls @ 200 mls/hr 10/04/24 04:00 10/07/24 05:06 Chloride IV Infused 0400,1600 CARLEE Infusion Furosemide 100 mg/ Sodium 100 mls @ 6.8 mls/hr 10/07/24 12:00 Chloride IV .[id number] CARLEE Protocol 0.05 MG/KG/HR Melatonin 6 mg 10/03/24 19:14 Melatonin 3 Mg Tablet PO HS PRN sleep Metolazone 5 mg 10/06/24 09:00 10/06/24 11:03 Metolazone 2.5 Mg Tablet PO 5 mg TuSa@0900 CARLEE Administration Multivitamins/Minerals 1 tab 10/04/24 17:00 10/07/24 10:31 Multivitamin W/Minerals Tablet PO 1 tab DAILYWM CARLEE Administration Nystatin 1 applic 10/04/24 10:00 10/07/24 10:29 Nystatin Cream 15 Gm Tube TOP 1 applic BID CARLEE Administration Oxycodone HCl 2.5 - 5 mg 10/05/24 19:56 10/07/24 12:34 Oxycodone 5 Mg Tablet PO 5 mg Q4HR PRN Administration pain Pantoprazole Sodium 40 mg 10/04/24 09:00 10/07/24 10:31 Pantoprazole 40 Mg Tablet PO 40 mg DAILY CARLEE Administration Patient Own Refrig 1.5 each 10/06/24 09:00 10/06/24 10:45 Med (Trulicity 1.5 SUBQ Not Given Mg) Q7D [facility] Potassium Chloride 10 meq 10/04/24 08:00 10/07/24 10:31 Potassium Chloride 10 Meq Capsule PO 10 meq DAILYWM CARLEE Administration Trazodone HCl 50 mg 10/04/24 09:00 10/06/24 20:50 Trazodone 50 Mg Tablet PO 50 mg HS CARLEE Administration Zinc Oxide 1 gm 10/06/24 21:00 10/07/24 10:29 Cod Liver Oil/Zinc Oxide 113 Gm Tube TOP 1 unit BID CARLEE Administration Objective Vital Signs/Intake & Output Reviewed Vital Signs: Yes Vital Signs: Vital Signs x48h Temp Pulse Resp BP BP Pulse Ox 10/07/24 08:33 36.2 C L 88 16 140/65 H 98 10/07/24 06:00 36.2 C L 82 18 98/62 96 Intake & Output: Intake & Output 10/04/24 10/05/24 10/06/24 10/07/24 23:59 23:59 23:59 23:59 Intake Total 1800 / 1800 650 / 650 490 / 490 920 / 920 Output Total 1300 / 1300 750 / 750 255 / 255 100 / 100 Balance 500 / 500 -100 / -100 235 / 235 820 / 820 Objective General Appearance: positive No acute distress and Alert Eyes Bilateral: positive Normal inspection ENT: positive ENT inspection nml Neck: positive Trachea midline and Other (left IJ central line site with dressing in place. Right sided attempt at CL with some ooze. ) Respiratory: positive Chest non-tender, No respiratory distress and Other (diminished at bases) Cardiovascular: positive Regular rate & rhythm Abdomen: positive Non-tender and Other (right lower quadrant wound is granulating, minimal ooze on dressing. ) Skin: positive Other (hemorrhagic bullous lesions at the back of bilateral hands are intact. remains with some skin weeping at extremities x4) Extremities: positive Pedal edema (severe) and Other (left heel wound- black eschar which appears more moist. there is mild erythema around the wound edges, but minimal drainage. there is a foul odor from the wound, but not ) Comments/Other: . there is not steady improvement in edema Seems about the same, with decreased in the upper, but still weeping at the lower extremities. Lab Results 10/07/24 06:15 10/07/24 06:15 Other Labs: Lab Results x24hrs 10/07/24 10/07/24 10/06/24 Range/Units 07:49 06:15 20:38 WBC 11.5 H (4.8-10.8) x10^3/uL RBC 2.69 L (4.20-5.40) 10^6/uL Hgb 8.7 L (12.0-16.0) g/dL Hct 25.7 L (37.0-47.0) % MCV 95.5 (81.0-99.0) fL MCH 32.3 H (27.0-31.0) pg MCHC 33.9 (32.0-36.0) g/dL RDW 19.2 H (12.0-15.0) % Plt Count 80 L (130-450) 10^3/uL MPV 11.0 H (7.9-10.8) fL Neut # (Auto) 9.9 H (1.5-6.6) 10^3/uL Lymph # (Auto) 1.0 L (1.5-3.5) 10^3/uL [place] # (Auto) 0.3 (0.0-1.0) 10^3/uL Eos # (Auto) 0.1 (0.0-0.7) 10^3/uL Baso # (Auto) 0.0 (0.0-0.1) 10^3/uL Absolute Nucleated RBC 0.02 x10^3/uL Nucleated RBC % 0.2 /100WBC Sodium 130 L (135-145) mmol/L Potassium 3.5 (3.5-4.5) mmol/L Chloride 92 L (101-111) mmol/L Carbon Dioxide 33 H (21-32) mmol/L Anion Gap 5.0 L (6-13) BUN 44 H (6-20) mg/dL Creatinine 2.2 H (0.6-1.3) mg/dL Estimated GFR (MDRD) 22 L (>89) Glucose 232 H (74-104) mg/dL POC Whole Bld Glucose 197 263 (70-100) mg/dL Calcium 7.9 L (8.5-10.3) mg/dL 10/06/24 10/06/24 Range/Units 16:38 13:25 WBC 10.5 (4.8-10.8) x10^3/uL RBC 2.81 L (4.20-5.40) 10^6/uL Hgb 9.2 L (12.0-16.0) g/dL Hct 26.8 L (37.0-47.0) % MCV 95.4 (81.0-99.0) fL MCH 32.7 H (27.0-31.0) pg MCHC 34.3 (32.0-36.0) g/dL RDW 19.1 H (12.0-15.0) % Plt Count 84 L (130-450) 10^3/uL MPV 10.1 (7.9-10.8) fL Neut # (Auto) 8.5 H (1.5-6.6) 10^3/uL Lymph # (Auto) 1.3 L (1.5-3.5) 10^3/uL [place] # (Auto) 0.4 (0.0-1.0) 10^3/uL Eos # (Auto) 0.1 (0.0-0.7) 10^3/uL Baso # (Auto) 0.0 (0.0-0.1) 10^3/uL Absolute Nucleated RBC 0.05 x10^3/uL Nucleated RBC % 0.5 /100WBC Sodium 131 L (135-145) mmol/L Potassium 3.5 (3.5-4.5) mmol/L Chloride 92 L (101-111) mmol/L Carbon Dioxide 34 H (21-32) mmol/L Anion Gap 5.0 L (6-13) BUN 40 H (6-20) mg/dL Creatinine 2.1 H (0.6-1.3) mg/dL Estimated GFR (MDRD) 23 L (>89) Glucose 264 H (74-104) mg/dL POC Whole Bld Glucose 279 (70-100) mg/dL Calcium 7.8 L (8.5-10.3) mg/dL Assessment/Plan Problem List (1) Sepsis: Impression: 10/07: Alert and oriented today. has some discomfort in her left arm. no fevers. Her white blood cell count is up from 10.5-11.5. She is currently on cefepime for urinary tract infection. 10/06: She continues to improve with regards to her mental status. She had central line placement today and her leukocytosis has resolved. no fevers. Blood cultures with no growth. 10/05:Alert and oriented x 3. I do not have data regarding her leukocytosis today. Blood cultures show no growth x 2 days. Urine cultures positive for E. coli sensitive to cefepime. 10/04: mental status is slightly improved. She wakes up and is oriented to self and to place, but not to time. states this is not unusual. She has not had any fevers and her leukocytosis is decreasing. remains very sleepy. Blood cultures show no growth after 1 day.. on admission: 78-year-old female with multiple medical problems presents to the emergency department with acute mental status changes white blood cell count of 30.2, afebrile heart rate in the low 100s and blood pressure as low as 97/57. She meets sepsis criteria. I am admitting her for sepsis with presumed source of urinary tract.Lactic acid is 1.2. I will not repeat this. On exam her mucous membranes are dry and she has not been eating and drinking well at home. She has a Diallo in place and her urinary output over the last 24 hours is approximately 50 cc/h over the last 24 hours as determined by calculations of urinary output provided by her . Qualifiers: Sepsis acute organ dysfunction status: with acute organ dysfunction S epsis type: sepsis due to unspecified organism Severe sepsis acute organ dysfunction type: encephalopathy Severe sepsis shock status: without septic shock Qualified Code(s): A41.9 - Sepsis, unspecified organism; R65.20 - Severe sepsis without septic shock; G93.41 - Metabolic encephalopathy (2) Acute UTI: Impression: Urine culture done on the date of her initial emergency department visit shows E. coli. It is sensitive to cefepime. Which is her current antibiotic therapy. She is day4/5. (3) Acute urinary retention: Impression: Diagnosed on 01 October at the time of her ED visit she is bringing in a Diallo which is in place from home. She was due to follow-up with urology in the outpatient environment. I will leave the Diallo in place. Diallo shows cloudy dark urine about 40 cc in the bag now there have been about 300 cc of output since the beginning of the shift 8 hours ago. overnight RN reports some blood in the diallo bag, just dark urine today. Need to consider increasing abx duration given the fact that diallo is in place and needs to remain in place. (4) Decubital ulcer: Impression: Please see my physical exam for documentation of the ulcerations. There is been a change in the left heel ulceration. There is some surrounding erythema and there is a foul smell coming from the wound. There is definitely concern for calcaneal involvement on exam. I will obtain an MRI and surgical consultation. MRI was ordered today. Qualifiers: Pressure injury location: heel (5) Generalized edema due to fluid overload: Impression: She had been off the Bumex for about a month. There was some difficulty with obtaining a prescription and then some difficulty with [facility]. She has been like this with his generalized edema for about a week. I have placed her on a Lasix drip. I am hoping to see some decreased edema and negative fluid balance. I will give her albumin this evening. no worsening of her Cr . . (6) Meningioma: Impression: By history. It appears this has not been followed up. We will need to keep this in mind and consider MRI while she is here is getting her out of the house to appointments is very very difficult. I am not certain that she will fit in the scanner. need to discuss with respiratory care technician. (7) Diastolic heart failure with preserved ejection fraction: Impression: Chest x-ray shows cardiomegaly with pulmonary vascular congestion. Her BNP was 238 at her emergency department visit on the . She has severe peripheral edema Review of records shows most recent echo done at [facility] in March 2024 showing ejection fraction of 55 to 60% with severe diastolic dysfunction. (8) Chronic kidney disease, stage 4 (severe): Impression: Creatinine has not worsened since admission. I am continuing to diurese the patient. no worseing despite diuresis. (9) Insulin dependent diabetes mellitus: Impression: Her A1c is 4.8%. I have changed her blood glucose testing to twice daily. I have discontinued her insulin and would recommend against continuing Trulicity in the outpatient environment. (10) Chronic atrial fibrillation: Impression: Home medication of Eliquis, renal dosing. No beta-blockers on the home med regimen. Although careful review of notes does show previously on metoprolol succinate 25 mg a day. (11) Subclinical hypothyroidism: Impression: Elevated TSH with normal free T4. She does carry a previous diagnosis of subclinical hypothyroidism. Would defer further management to the outpatient environment. I have spent 40 minutes in the care of this patient today. This includes time [id number], review and ordering of diagnostic imaging and laboratory studies.. Monitoring the patient's signs symptoms, evaluation of medication effectiveness and patient's response to treatment.
[2024-10-07] MEDS: FUROSEMIDE INJ 100mg VIAL 100 MG in SODIUM CHLORIDE 0.9% 100ML 90 ML IV SCH (14:10)
[2024-10-07] MEDS: ALBUMIN 25% 12.5 GM/50 ML VIAL IV STA (18:24)
[2024-10-08] MEDS: SODIUM CHLORIDE FLUSH 0.9% 10 ML SYRINGE IVP SCH (00:41)
[2024-10-08 06:54] LABS: BASOPHILS % (AUTO) 0.2 %; EOSINOPHILS % (AUTO) 0.3 %; HCT - HEMATOCRIT 24.7 % (37.0-47.0); HGB - HEMOGLOBIN 8.3 g/dL (12.0-16.0); LYMPHOCYTES # (AUTO) 0.8 10^3/uL (1.5-3.5); LYMPHOCYTES % (AUTO) 5.5 %; MEAN CORPUSCULAR HEMOGLOBIN 31.9 pg (27.0-31.0); MEAN CORPUSCULAR HGB CONC 33.6 g/dL (32.0-36.0); MEAN PLATELET VOLUME 10.8 fL (7.9-10.8); MONOCYTES # (AUTO) 0.3 10^3/uL (0.0-1.0); MONOCYTES % (AUTO) 1.8 %; NEUTROPHILS # (AUTO) 12.8 10^3/uL (1.5-6.6); NEUTROPHILS % (AUTO) 90.8 %; NRBC ABSOLUTE COUNT (AUTO) 0.02 x10^3/uL; NUCLEATED RED BLOOD CELLS AUTO 0.1 /100WBC; PLT - PLATELET COUNT 75 10^3/uL (130-450); RED CELL DISTRIBUTION WIDTH 18.8 % (12.0-15.0); WHITE BLOOD COUNT 14.2 x10^3/uL (4.8-10.8)
[2024-10-08 07:09] LABS: CREATININE 2.2 mg/dL (0.6-1.3); POTASSIUM 3.5 mmol/L (3.5-4.5)
--- NOTE | 2024-10-08 13:53 | PROVIDER PROGRESS NOTE ---
Subjective Prog Note Date Prog Note Date: 10/08/24 Subjective Pt reports feeling: No change Subjective: She is having some discomfort today. She is grimacing intermittently. She is awake but not talking much. She knows she is at the hospital but she does not know what day it is. Conor is at bedside. He states that she ate a few bites of breakfast. She was eating better yesterday. Current Medications Current Medications Current Medications: Current Medications Generic Name Dose Route Start Last Admin Trade Name Frealice PRN Reason Stop Dose Admin Acetaminophen 650 mg 10/05/24 18:09 10/05/24 18:18 Acetaminophen 325 Mg Tablet PO 650 mg Q4HR PRN Administration Pain or Fever > 38C (100.4F) Albuterol 2.5 mg 10/03/24 19:14 Albuterol Neb 2.5 Mg/3 Ml INH Q2H PRN shortness of breath or wheezing Allopurinol 300 mg 10/04/24 09:00 10/08/24 09:21 Allopurinol 100 Mg Tablet PO 300 mg DAILY CARLEE Administration Apixaban 2.5 mg 10/03/24 21:00 10/08/24 09:20 Apixaban 2.5 Mg Tablet PO 2.5 mg BID CARLEE Administration Ascorbic Acid 500 mg 10/04/24 17:00 10/08/24 09:20 Ascorbic Acid 500 Mg Tablet PO 500 mg DAILY CARLEE Administration Atorvastatin Calcium 10 mg 10/03/24 21:00 10/07/24 21:22 Atorvastatin 10 Mg Tablet PO 10 mg QPM CARLEE Administration Bumetanide 2 mg 10/03/24 21:00 10/08/24 09:18 Bumetanide 1 Mg Tablet PO 2 mg BID CARLEE Administration Cetirizine HCl 5 mg 10/04/24 09:00 10/08/24 09:21 Cetirizine 10 Mg Tablet PO 5 mg DAILY CARLEE Administration Cholecalciferol 50 mcg 10/05/24 09:00 10/08/24 09:19 Cholecalciferol 25 Mcg Tablet PO 50 mcg DAILY CARLEE Administration Diclofenac Sodium 2 gm 10/05/24 19:53 10/05/24 20:02 Diclofenac Sodium 1% Gel 50 Gm Tube TOP 2 gm QID PRN Administration Mild Pain (Level 1-3) Fluticasone Propionate 1 sprays 10/04/24 09:00 10/08/24 09:17 Fluticasone Nasal [place] NELLA 1 sprays DAILY CARLEE Administration Gabapentin 600 mg 10/03/24 22:00 10/08/24 09:19 Gabapentin 300 Mg Capsule PO 600 mg BID CARLEE Administration Cefepime HCl 1 gm/ Sodium 100 mls @ 200 mls/hr 10/04/24 04:00 10/08/24 04:45 Chloride IV Infused 0400,1600 CARLEE Infusion Furosemide 100 mg/ Sodium 100 mls @ 13.6 mls/hr 10/07/24 12:00 10/08/24 10:38 Chloride IV 0.1 mg/kg/hr .Q7H22M CARLEE 13.6 mls/hr Administration Protocol Melatonin 6 mg 10/03/24 19:14 Melatonin 3 Mg Tablet PO HS PRN sleep Metolazone 5 mg 10/06/24 09:00 10/06/24 11:03 Metolazone 2.5 Mg Tablet PO 5 mg TuSa@0900 CARLEE Administration Multivitamins/Minerals 1 tab 10/04/24 17:00 10/08/24 09:23 Multivitamin W/Minerals Tablet PO 1 tab DAILYWM CARLEE Administration Nystatin 1 applic 10/04/24 10:00 10/08/24 09:17 Nystatin Cream 15 Gm Tube TOP 1 applic BID CARLEE Administration Oxycodone HCl 2.5 - 5 mg 10/05/24 19:56 10/08/24 09:20 Oxycodone 5 Mg Tablet PO 5 mg Q4HR PRN Administration pain Pantoprazole Sodium 40 mg 10/04/24 09:00 10/08/24 09:19 Pantoprazole 40 Mg Tablet PO 40 mg DAILY CARLEE Administration Patient Own Refrig 1.5 each 10/06/24 09:00 10/06/24 10:45 Med (Trulicity 1.5 SUBQ Not Given Mg) Q7D CARLEE Potassium Chloride 10 meq 10/04/24 08:00 10/08/24 09:19 Potassium Chloride 10 Meq Capsule PO 10 meq DAILYWM CARLEE Administration Sodium Chloride 10 ml 10/08/24 01:00 10/08/24 09:18 Sodium Chloride Flush 0.9% 10 Ml Syringe IVP 10 ml 0100,0900,1700 CARLEE Administration Trazodone HCl 50 mg 10/04/24 09:00 10/07/24 21:21 Trazodone 50 Mg Tablet PO 50 mg HS CARLEE Administration Zinc Oxide 1 gm 10/06/24 21:00 10/08/24 09:17 Cod Liver Oil/Zinc Oxide 113 Gm Tube TOP 1 unit BID CARLEE Administration Objective Vital Signs/Intake & Output Reviewed Vital Signs: Yes Vital Signs: Vital Signs x48h Temp Pulse Resp BP Pulse Ox 10/08/24 12:25 35.8 C L 77 20 92/55 L 93 Intake & Output: Intake & Output 10/05/24 10/06/24 10/07/24 10/08/24 23:59 23:59 23:59 23:59 Intake Total 650 / 650 490 / 490 1430 / 1430 450 / 450 Output Total 750 / 750 255 / 255 225 / 225 125 / 125 Balance -100 / -100 235 / 235 1205 / 1205 325 / 325 Objective General Appearance: positive No acute distress and Other (occasional brow furrowing) Eyes Bilateral: positive PERRL and Conjunctivae nml ENT: positive ENT inspection nml Neck: positive Nml inspection and Other (some old blood around left IJ central line site) Respiratory: positive No respiratory distress and Breath sounds nml (diminished at bases) Cardiovascular: positive Regular rate & rhythm and Other (blood pressure is low) Abdomen: positive Non-tender and No distention Skin: positive Other (hemorrhagic bullous lesions at the back of bilateral hands are intact. remains with some skin weeping at extremities x4) Extremities: positive Pedal edema (severe) and Other (left heel wound- black eschar which appears more moist. there is mild erythema around the wound edges, but minimal drainage. there is a foul odor from the wound, but not ) Comments/Other: . there is not steady improvement in edema Seems about the same, with decreased in the upper, but still weeping at the lower extremities for 2 days now. There is bloody urine in the diallo bag, urine output 125ml over preceeding 8 hours on lasix gtt. Lab Results 10/08/24 06:13 10/08/24 06:13 Other Labs: Lab Results x24hrs 10/08/24 10/08/24 10/07/24 Range/Units 07:41 06:13 17:22 WBC 14.2 H (4.8-10.8) x10^3/uL RBC 2.60 L (4.20-5.40) 10^6/uL Hgb 8.3 L (12.0-16.0) g/dL Hct 24.7 L (37.0-47.0) % MCV 95.0 (81.0-99.0) fL MCH 31.9 H (27.0-31.0) pg MCHC 33.6 (32.0-36.0) g/dL RDW 18.8 H (12.0-15.0) % Plt Count 75 L (130-450) 10^3/uL MPV 10.8 (7.9-10.8) fL Neut # (Auto) 12.8 H (1.5-6.6) 10^3/uL Lymph # (Auto) 0.8 L (1.5-3.5) 10^3/uL [place] # (Auto) 0.3 (0.0-1.0) 10^3/uL Eos # (Auto) 0.0 (0.0-0.7) 10^3/uL Baso # (Auto) 0.0 (0.0-0.1) 10^3/uL Absolute Nucleated RBC 0.02 x10^3/uL Nucleated RBC % 0.1 /100WBC Sodium 130 L (135-145) mmol/L Potassium 3.5 (3.5-4.5) mmol/L Chloride 91 L (101-111) mmol/L Carbon Dioxide 33 H (21-32) mmol/L Anion Gap 6.0 (6-13) BUN 50 H (6-20) mg/dL Creatinine 2.2 H (0.6-1.3) mg/dL Estimated GFR (MDRD) 22 L (>89) Glucose 285 H (74-104) mg/dL POC Whole Bld Glucose 249 265 (70-100) mg/dL Calcium 8.0 L (8.5-10.3) mg/dL Assessment/Plan Problem List (1) Sepsis: Impression: 10/08: wBC elevated today to 14.2. respiratory status is not worse. She has not been running fevers. blood cultures remain negative with no growth for 5 days. Given rising WBC and suspicion of infection in her foot, I will keep her on Cefepime and add vancomycin to cover better for skin pathogens. 10/07: Alert and oriented today. has some discomfort in her left arm. no fevers. Her white blood cell count is up from 10.5-11.5. She is currently on cefepime for urinary tract infection. 10/06: She continues to improve with regards to her mental status. She had central line placement today and her leukocytosis has resolved. no fevers. Blood cultures with no growth. 10/05:Alert and oriented x 3. I do not have data regarding her leukocytosis today. Blood cultures show no growth x 2 days. Urine cultures positive for E. coli sensitive to cefepime. 10/04: mental status is slightly improved. She wakes up and is oriented to self and to place, but not to time. states this is not unusual. She has not had any fevers and her leukocytosis is decreasing. remains very sleepy. Blood cultures show no growth after 1 day.. on admission: 78-year-old female with multiple medical problems presents to the emergency department with acute mental status changes white blood cell count of 30.2, afebrile heart rate in the low 100s and blood pressure as low as 97/57. She meets sepsis criteria. I am admitting her for sepsis with presumed source of urinary tract.Lactic acid is 1.2. I will not repeat this. On exam her mucous membranes are dry and she has not been eating and drinking well at home. She has a Diallo in place and her urinary output over the last 24 hours is approximately 50 cc/h over the last 24 hours as determined by calculations of urinary output provided by her . Qualifiers: Sepsis acute organ dysfunction status: with acute organ dysfunction S epsis type: sepsis due to unspecified organism Severe sepsis acute organ dysfunction type: encephalopathy Severe sepsis shock status: without septic shock Qualified Code(s): A41.9 - Sepsis, unspecified organism; R65.20 - Severe sepsis without septic shock; G93.41 - Metabolic encephalopathy (2) Acute UTI: Impression: Urine culture done on the date of her initial emergency department visit shows E. coli. It is sensitive to cefepime. Which is her current antibiotic therapy. She is day 5 / for urinary tract infection. (3) Acute urinary retention: Impression: Diagnosed on 01 October at the time of her ED visit she is bringing in a Diallo which is in place from home. She was due to follow-up with urology in the outpatient environment. I will leave the Diallo in place. urine is dark and blood tinged. I am stopping her Eliquis due to this plus bleeding around the central libe, I have considered lengthening duration of abx for URI given indwelling diallo- but I am continuing and broading coverage due to my concerns about her heel ulceration. . (4) Decubital ulcer: Impression: Please see my physical exam for documentation of the ulcerations. There is been a change in the left heel ulceration. There is some surrounding erythema and there is a foul smell coming from the wound. There is definitely concern for calcaneal involvement on exam. MRI will be complete this evening. Qualifiers: Pressure injury location: heel (5) Hyponatremia: Impression: sodium is a little worse today. I am adding salt tabs. This is likely due to the lasix drip. potassium remains steady. 2 Laboratory Tests 10/01/24 10/03/24 10/04/24 12:12 14:20 05:49 Sodium 132 L 133 L 133 L 10/06/24 10/07/24 10/08/24 13:25 06:15 06:13 Sodium 131 L 130 L 130 L (6) Generalized edema due to fluid overload: Impression: She had been off the Bumex for about a month. There was some difficulty with obtaining a prescription and then some difficulty with [facility]. She has been like this with his generalized edema for about a week prior to admission I have placed her on a Lasix drip. I have given her daily albumin, in addition to diuretic treatment. I am not seeing significant diuresis. Her renal function is incrementally worse, but not declining sharply. I am adding Jardiance 10mg a day today. Hopefully this will help her with fluid balance 2 Laboratory Tests 10/03/24 10/04/24 10/06/24 14:20 05:49 13:25 Creatinine 1.8 H 1.8 H 2.1 H 10/07/24 10/08/24 06:15 06:13 Creatinine 2.2 H 2.2 H . (7) Meningioma: Impression: By history. It appears this has not been followed up. We will need to keep this in mind and consider MRI while she is here is getting her out of the house to appointments is very very difficult. I have ordered MRI with and without contrast, as she is going to have a left foot MRI, and this will be an efficient way to complete the scan. (8) Diastolic heart failure with preserved ejection fraction: Impression: Chest x-ray shows cardiomegaly with pulmonary vascular congestion. Her BNP was 238 at her emergency department visit on the . She has severe peripheral edema Review of records shows most recent echo done at [facility] in March 2024 showing ejection fraction of 55 to 60% with severe diastolic dysfunction. (9) Chronic kidney disease, stage 4 (severe): Impression: incremental worsening of renal status. See above. (10) Insulin dependent diabetes mellitus: Impression: Her A1c is 4.8%. I have changed her blood glucose testing to twice daily. I have discontinued her insulin and would recommend against continuing Trulicity in the outpatient environment. (11) Chronic atrial fibrillation: Impression: Home medication of Eliquis, renal dosing. No beta-blockers on the home med regimen. Although careful review of notes does show previously on metoprolol succinate 25 mg a day. (12) Do not resuscitate: Impression: Decision made today not to resuscitate. Please see advance care planning note (13) Subclinical hypothyroidism: Impression: Elevated TSH with normal free T4. She does carry a previous diagnosis of subclinical hypothyroidism. Would defer further management to the outpatient environment. I have spent 40 minutes in the care of this patient today. This includes time [id number], review and ordering of diagnostic imaging and laboratory studies.. Monitoring the patient's signs symptoms, evaluation of medication effectiveness and patient's response to treatment.
--- NOTE | 2024-10-08 16:12 | ADVANCE CARE PLANNING NOTE ---
Advance Care Planning Planning Encounter Date: 10/08/24 Purpose: Determine care goals, define current status of health problems. Parties in Attendance: Korin Siddiqui PA-C, Mane German (spouse and POA) son Sandip Westbrook via telephone. Decisional Capacity of the Patient: alert, but not oriented. not able to participate. Diagnosis for Encounter (1) Sepsis: Qualifiers: Sepsis acute organ dysfunction status: with acute organ dysfunction Sepsis type: sepsis due to unspecified organism Severe sepsis acute organ dysfunction type: encephalopathy Severe sepsis shock status: without septic shock Qualified Code(s): A41.9 - Sepsis, unspecified organism; R65.20 - Severe sepsis without septic shock; G93.41 - Metabolic encephalopathy (2) Acute UTI: (3) Acute urinary retention: (4) Decubital ulcer: Qualifiers: Pressure injury location: heel (5) Generalized edema due to fluid overload: (6) Meningioma: (7) Diastolic heart failure with preserved ejection fraction: (8) Chronic kidney disease, stage 4 (severe): (9) Insulin dependent diabetes mellitus: (10) Chronic atrial fibrillation: (11) Subclinical hypothyroidism: Encounter Subjective/Patient's Story: She has been bed bound for almost a year now, secondary to ankle fracture and complications. She lives at home with her spouse of many years, Conor, who meets all of her care needs. For the last week, several days prior to admit, she has been sick. Normally at home she is awake, alert and interactive. She has quality of life. Objective/Medical Story: Worsening edema for about a month due to inability to get medications. She has been admitted for sepsis, anasarca and urinary tract infection. She has a decubitus ulceration on her heel that is becoming infected. She is on a lasix drip and getting periodic albumin infusions. She is not improving. Her lungs are clear, without evidence of fluid buildup, but her peripheral edema is causing skin breakdown and is refractory to treatment. I have shared a summary of her medical conditions on the phone with her son Sandip. He understands and denies questions. I mentioned that I do not think resusitative efforts would end in a situation which provides any comfort for his mother. He responded to me that he has been trying to convince his father of this for some time. Goals of Care: I have recommended DNR/DNI/selective care to Conor, and Sandip. Sandip agrees and Conor respects his son's opinion as an RN. Conor has done an excellent job taking care of Manisha. He is having a hard time facing the fact that her body is failing, but seems able to slowly accept this reality. I explained the POLST and its purpose, and gave him some time to consider. He agrees with our recommendations. I think it is helpful that his son, who is a healthcare professional understands what is happening. I explained to Conor that we all feel strongly about doing everything we can to help Manisha feel better and be in less pain. Plan: POLST: DNR/selective treatment. Code Status: Do Not Attempt Resuscitation Time spent on advance care plannin min
[2024-10-08] MEDS ORDERED: GADOTERATE MEGLUMINE 7.5 MMOL/15 ML VIAL ONE (17:38)
[2024-10-08] MEDS ORDERED: GADOTERATE MEGLUMINE 10 MMOL/20 ML VIAL ONE (17:38)
--- NOTE | 2024-10-08 18:00 | PHARMACY PROGRESS NOTE ---
Vancomycin Therapy Monitoring Patient Information Vancomycin Pt Height (inches): 61 Vancomycin Patient Weight (kg): 136 Vanco Rx Serum Creatinine (mg/dL): 2.2 Vancomycin Therapy BUN (mg/dL): 50 Vancomycin Therapy Calculated Creatinine Cl (ml/min): 26 Concurrent Antibiotics: CEFEPIME Vancomycin Therapy Goals Treatment Indication: SEPSIS Vancomycin Target Range: Vancomycin AUC Target Range 400-600 mcg*h/ml Assessment of Current Therapy Vancomycin Loading Dose (GM, if applicable): 2.5GM OVER 2 HOURS Current Vancomycin Maintenance Regimen (if applicable): 1.75GM Q48H Vancomycin Current Regimen: Within Target Range Estimated Cmax (Peak, mcg/ml): 35.5 Estimated Cmin (Trough, mcg/ml): 11.3 Estimated AUC (mcg*hr/ml): 510 Plan: Pharmacy recommendation: Continue current regimen Vancomycin Level Recommendation: Vancomycin Level Recommendation (OBTAIN LEVEL AFTER DOSE ON 10/12/24)
[2024-10-08] MEDS: GADOTERATE MEGLUMINE 10 MMOL/20 ML VIAL IVP ONE (18:18)
[2024-10-08] MEDS: GADOTERATE MEGLUMINE 7.5 MMOL/15 ML VIAL IVP ONE (18:18)
--- NOTE | 2024-10-08 19:11 | MRI Report ---
PROCEDURE: MRI Brain W/WO INDICATIONS: known history of meningioma CONTRAST: 27ml CLARISCAN TECHNIQUE: Noncontrast axial T1 spin echo, axial T2 fast spin echo, sagittal and axial FLAIR, coronal T2 fast sp in echo, axial gradient echo, axial diffusion and ADC through the brain. After the administration of contrast, axial and coronal T1 spin echo with fat saturation through the brain. COMPARISON: CT head 10/03/2024. FINDINGS: Image quality: Excellent. CSF spaces: Basal cisterns are patent. No extra-axial fluid collections. Ventricles are normal in size and shape. Brain: Right frontotemporal dural-based enhancing mass measuring 2.4 x 2.1 x 3.1 cm in maximal dimen evy (TV by AP by cc). There is mass effect on the adjacent brain parenchyma without associated edema . No midline shift. No intracranial bleeds. There is cerebral volume loss for age. There is perive ntricular white matter chronic small vessel ischemic change. The brainstem appears normal. Diffusio n-weighted images demonstrate no acute ischemic insults. No chronic ischemic insults. Normal intrav ascular flow voids are present. Skull and face: Calvarial marrow is normal in signal. Bilateral lens replacements. The orbits are o therwise normal in appearance. Sinuses: Mucosal thickening and near complete opacification of the left maxillary sinus. Other parana sammy sinuses are clear. Mastoid air cells are clear.. IMPRESSION: 1.Right frontotemporal dural-based enhancing mass measuring up to 3.1 cm, most consistent with a meni ngioma. There is mass effect on the adjacent brain parenchyma without associated edema. 2.Mucosal thickening and near complete opacification of the left maxillary sinus. 3.Age-related global volume loss and chronic microvascular ischemic changes are present. Reviewed by: Jeremy Stinson MD on 10/08/2024 7:09 PM PST Approved by: Jeremy Stinson MD on 10/08/2024 7:09 PM PST Station ID: [id number]
[2024-10-08] MEDS: VANCOMYCIN INJ 2 GM, VANCOMYCIN INJ 500 MG in SODIUM CHLORIDE 0.9% 500 ML IV ONE (20:17)
[2024-10-09] MEDS ORDERED: SODIUM CHLORIDE 0.9% 100ML 100 ML IV ONE (03:21)
--- NOTE | 2024-10-09 05:16 | PROVIDER PROGRESS NOTE ---
Lead Ramp Agent Note Lead Ramp Agent Note Lead Ramp Agent Note: RN paged to inquire about Lasix gtt order. RN questioning if the order is appropriate for med surg. RN questioning whether the Lasix gtt is an ICU order and not appropriate for med surg. Patient's UOP minimal as well. Current Lasix gtt order for patient c CKD stage 4 and usually taking Bumex 2mg po BID if running at 0.2mg/k/hr. There is a limt of 4mg/min max. Patient is 136kg. Hence lasix drip is running at 0.453mg/min, well below the max rate set at 4m g/min. Recommended to RN to consider reaching out to ICU counterpart for insight into Lasix gtt titration versus holding the current rate and seeking input from day team as currently already 0500am. Saida Blanca
[2024-10-09 07:16] LABS: BASOPHILS % (AUTO) 0.2 %; EOSINOPHILS % (AUTO) 0.1 %; HCT - HEMATOCRIT 24.3 % (37.0-47.0); HGB - HEMOGLOBIN 8.4 g/dL (12.0-16.0); LYMPHOCYTES # (AUTO) 0.8 10^3/uL (1.5-3.5); LYMPHOCYTES % (AUTO) 4.5 %; MEAN CORPUSCULAR HEMOGLOBIN 32.9 pg (27.0-31.0); MEAN CORPUSCULAR HGB CONC 34.6 g/dL (32.0-36.0); MEAN CORPUSCULAR VOLUME 95.3 fL (81.0-99.0); MEAN PLATELET VOLUME 11.3 fL (7.9-10.8); MONOCYTES # (AUTO) 0.1 10^3/uL (0.0-1.0); MONOCYTES % (AUTO) 0.7 %; NEUTROPHILS # (AUTO) 15.4 10^3/uL (1.5-6.6); NEUTROPHILS % (AUTO) 93.4 %; NRBC ABSOLUTE COUNT (AUTO) 0.03 x10^3/uL; NUCLEATED RED BLOOD CELLS AUTO 0.2 /100WBC; PLT - PLATELET COUNT 60 10^3/uL (130-450); RED BLOOD COUNT 2.55 10^6/uL (4.20-5.40); RED CELL DISTRIBUTION WIDTH 18.8 % (12.0-15.0); WHITE BLOOD COUNT 16.5 x10^3/uL (4.8-10.8)
[2024-10-09] MEDS: FUROSEMIDE INJ 100mg VIAL 100 MG in SODIUM CHLORIDE 0.9% 100ML 90 ML IV SCH (08:07)
[2024-10-09 08:18] LABS: CALCIUM 7.7 mg/dL (8.5-10.3); CREATININE 2.3 mg/dL (0.6-1.3); POTASSIUM 3.7 mmol/L (3.5-4.5)
[2024-10-09] MEDS: SODIUM CHLORIDE 1 GM TABLET PO SCH (09:52)
[2024-10-09] MEDS: JARDIANCE 10 MG PO SCH (10:05)
[2024-10-09 10:35] LABS: VBG PCO2 49.1 mmHg (41-51); VBG PH 7.445 (7.31-7.41); VBG PO2 43.5 mmHg (25-47)
[2024-10-09 10:36] LABS: VBG BASE EXCESS 9.8 mmol/L (-2 - +2); VBG TOTAL CO2 35.6 mmol/L (24-29)
--- NOTE | 2024-10-09 11:31 | PROVIDER PROGRESS NOTE ---
Subjective Prog Note Date Prog Note Date: 10/09/24 Subjective Subjective: She awakens to voice. But, she is not as aware today. Her edema is not better. discussed MRI foot with tech- MRI missed the order, now unsure if they can get her foot in the scanner. Current Medications Current Medications Current Medications: Current Medications Generic Name Dose Route Start Last Admin Trade Name Freq PRN Reason Stop Dose Admin Acetaminophen 650 mg 10/05/24 18:09 10/05/24 18:18 Acetaminophen 325 Mg Tablet PO 650 mg Q4HR PRN Administration Pain or Fever > 38C (100.4F) Albuterol 2.5 mg 10/03/24 19:14 Albuterol Neb 2.5 Mg/3 Ml INH Q2H PRN shortness of breath or wheezing Allopurinol 300 mg 10/04/24 09:00 10/09/24 10:35 Allopurinol 100 Mg Tablet PO Not Given DAILY CARLEE Ascorbic Acid 500 mg 10/04/24 17:00 10/09/24 10:35 Ascorbic Acid 500 Mg Tablet PO Not Given DAILY CARLEE Atorvastatin Calcium 10 mg 10/03/24 21:00 10/08/24 20:18 Atorvastatin 10 Mg Tablet PO 10 mg QPM CARLEE Administration Cetirizine HCl 5 mg 10/04/24 09:00 10/09/24 10:36 Cetirizine 10 Mg Tablet PO Not Given DAILY CARLEE Cholecalciferol 50 mcg 10/05/24 09:00 10/09/24 10:37 Cholecalciferol 25 Mcg Tablet PO Not Given DAILY CARLEE Diclofenac Sodium 2 gm 10/05/24 19:53 10/05/24 20:02 Diclofenac Sodium 1% Gel 50 Gm Tube TOP 2 gm QID PRN Administration Mild Pain (Level 1-3) Fluticasone Propionate 1 sprays 10/04/24 09:00 10/09/24 10:37 Fluticasone Nasal [place] NELLA Not Given DAILY CARLEE Furosemide 40 mg 10/09/24 14:00 Furosemide 40 Mg/4 Ml Vial IVP BIDDIURETIC CARLEE Gabapentin 600 mg 10/03/24 22:00 10/09/24 10:37 Gabapentin 300 Mg Capsule PO Not Given BID ACRLEE Cefepime HCl 1 gm/ Sodium 100 mls @ 200 mls/hr 10/04/24 04:00 10/09/24 04:14 Chloride IV Infused 0400,1600 CARLEE Infusion Vancomycin HCl 1.75 gm/ Sodium 500 mls @ 250 mls/hr 10/10/24 18:00 Chloride IV Q48H CARLEE Albumin Human 12.5 gm in 50 mls @ 50 mls/hr 10/09/24 14:00 Albuminar-25 IV TID CARLEE Melatonin 6 mg 10/03/24 19:14 Melatonin 3 Mg Tablet PO HS PRN sleep Metolazone 5 mg 10/06/24 09:00 10/09/24 10:38 Metolazone 2.5 Mg Tablet PO Not Given TuSa@0900 [facility] Multivitamins/Minerals 1 tab 10/04/24 17:00 10/09/24 10:34 Multivitamin W/Minerals Tablet PO Not Given DAILYWM CARLEE Nystatin 1 applic 10/04/24 10:00 10/09/24 09:49 Nystatin Cream 15 Gm Tube TOP 1 applic BID CARLEE Administration Oxycodone HCl 2.5 - 5 mg 10/05/24 19:56 10/09/24 09:52 Oxycodone 5 Mg Tablet PO 5 mg Q4HR PRN Administration pain Pantoprazole Sodium 40 mg 10/04/24 09:00 10/09/24 10:38 Pantoprazole 40 Mg Tablet PO Not Given DAILY CARLEE Patient Own Refrig 1.5 each 10/06/24 09:00 10/06/24 10:45 Med (Trulicity 1.5 SUBQ Not Given Mg) Q7D [facility] Patient Own Med ( 1 each 10/09/24 09:00 10/09/24 10:38 Jardiance 10 Mg) PO Not Given DAILY [facility] Potassium Chloride 10 meq 10/04/24 08:00 10/09/24 10:34 Potassium Chloride 10 Meq Capsule PO Not Given DAILYWM [facility] Sodium Chloride 10 ml 10/08/24 01:00 10/09/24 09:53 Sodium Chloride Flush 0.9% 10 Ml Syringe IVP 10 ml 0100,0900,1700 [facility] Administration Sodium Chloride 1 gm 10/09/24 09:00 10/09/24 10:39 Sodium Chloride 1 Gm Tablet PO Not Given DAILY CARLEE Trazodone HCl 50 mg 10/04/24 09:00 10/08/24 20:18 Trazodone 50 Mg Tablet PO 50 mg HS [facility] Administration Zinc Oxide 1 gm 10/06/24 21:00 10/09/24 02:27 Cod Liver Oil/Zinc Oxide 113 Gm Tube TOP 1 unit BID CARLEE Administration Objective Vital Signs/Intake & Output Reviewed Vital Signs: Yes Vital Signs: Vital Signs x48h Temp Pulse Resp BP Pulse Ox 10/09/24 06:40 36.1 C L 65 20 96/60 91 L Intake & Output: Intake & Output 10/06/24 10/07/24 10/08/24 10/09/24 23:59 23:59 23:59 23:59 Intake Total 490 / 490 1430 / 1430 1450 / 1450 200 / 200 Output Total 255 / 255 225 / 225 350 / 350 60 / 60 Balance 235 / 235 1205 / 1205 1100 / 1100 140 / 140 Objective General Appearance: positive No acute distress and Other (non verbal today) Eyes Bilateral: positive PERRL and Conjunctivae nml ENT: positive ENT inspection nml Neck: positive Nml inspection and Other (some old blood around left IJ central line site) Respiratory: positive No respiratory distress and Breath sounds nml (diminished at bases- this is no change from previous) Cardiovascular: positive Regular rate & rhythm and Other (blood pressure is low) Abdomen: positive Non-tender, No distention and Other (obese) Skin: positive Other (hemorrhagic bullous lesions at the back of bilateral hands are intact. remains with some skin weeping at extremities x4) Extremities: positive Pedal edema (severe) and Other (left heel wound- black eschar which appears more moist. there is mild erythema around the wound edges, but minimal drainage. there is a foul odor from the wound,) Comments/Other: . there is not steady improvement in edema Seems about the same, with decreased in the upper, but still weeping at the lower extremities. Her RLQ ulcer is healing and not oozing blood as before. left heel is not worse. foul smell is improved. Lab Results 10/09/24 06:50 10/09/24 07:55 Other Labs: Lab Results x24hrs 10/09/24 10/09/24 10/09/24 Range/Units 10:28 07:55 07:39 WBC (4.8-10.8) x10^3/uL RBC (4.20-5.40) 10^6/uL Hgb (12.0-16.0) g/dL Hct (37.0-47.0) % MCV (81.0-99.0) fL MCH (27.0-31.0) pg MCHC (32.0-36.0) g/dL RDW (12.0-15.0) % Plt Count (130-450) 10^3/uL MPV (7.9-10.8) fL Neut # (Auto) (1.5-6.6) 10^3/uL Lymph # (Auto) (1.5-3.5) 10^3/uL [place] # (Auto) (0.0-1.0) 10^3/uL Eos # (Auto) (0.0-0.7) 10^3/uL Baso # (Auto) (0.0-0.1) 10^3/uL Absolute Nucleated RBC x10^3/uL Nucleated RBC % /100WBC VBG pH 7.445 H (7.31-7.41) VBG pCO2 49.1 (41-51) mmHg VBG pO2 43.5 (25-47) mmHg VBG HCO3 34.1 H (23-28) mmol/L VBG Total CO2 35.6 H (24-29) mmol/L VBG O2 Saturation 74.0 (60-80) % VBG Base Excess 9.8 H (-2 - +2) mmol/L Sodium 129 L (135-145) mmol/L Potassium 3.7 (3.5-4.5) mmol/L Chloride 91 L (101-111) mmol/L Carbon Dioxide 31 (21-32) mmol/L Anion Gap 7.0 (6-13) BUN 53 H (6-20) mg/dL Creatinine 2.3 H (0.6-1.3) mg/dL Estimated GFR (MDRD) 21 L (>89) Glucose 279 H (74-104) mg/dL POC Whole Bld Glucose 247 (70-100) mg/dL Calcium 7.7 L (8.5-10.3) mg/dL 10/09/24 10/08/24 Range/Units 06:50 17:09 WBC 16.5 H (4.8-10.8) x10^3/uL RBC 2.55 L (4.20-5.40) 10^6/uL Hgb 8.4 L (12.0-16.0) g/dL Hct 24.3 L (37.0-47.0) % MCV 95.3 (81.0-99.0) fL MCH 32.9 H (27.0-31.0) pg MCHC 34.6 (32.0-36.0) g/dL RDW 18.8 H (12.0-15.0) % Plt Count 60 L (130-450) 10^3/uL MPV 11.3 H (7.9-10.8) fL Neut # (Auto) 15.4 H (1.5-6.6) 10^3/uL Lymph # (Auto) 0.8 L (1.5-3.5) 10^3/uL [place] # (Auto) 0.1 (0.0-1.0) 10^3/uL Eos # (Auto) 0.0 (0.0-0.7) 10^3/uL Baso # (Auto) 0.0 (0.0-0.1) 10^3/uL Absolute Nucleated RBC 0.03 x10^3/uL Nucleated RBC % 0.2 /100WBC VBG pH (7.31-7.41) VBG pCO2 (41-51) mmHg VBG pO2 (25-47) mmHg VBG HCO3 (23-28) mmol/L VBG Total CO2 (24-29) mmol/L VBG O2 Saturation (60-80) % VBG Base Excess (-2 - +2) mmol/L Sodium (135-145) mmol/L Potassium (3.5-4.5) mmol/L Chloride (101-111) mmol/L Carbon Dioxide (21-32) mmol/L Anion Gap (6-13) BUN (6-20) mg/dL Creatinine (0.6-1.3) mg/dL Estimated GFR (MDRD) (>89) Glucose (74-104) mg/dL POC Whole Bld Glucose 287 (70-100) mg/dL Calcium (8.5-10.3) mg/dL Diagnostic Imaging Diagnostic Imaging Comments: chest XR today, increasing pulmonary congestion Assessment/Plan Problem List (1) Sepsis: Impression: 10/09: the trajectory of her WBC follows with the treatment of her urinary tract infection and then the worsening of her heel. MRI is pending of the foot. I have called MRI to check on this study today. her overall status is worsening this AM. VBG looks unremarkable. She is requiring oxygen now, and her chest XR shows pulmonary congestion, comparing images from 10/01 to today, worsening. Please see further discussion below Laboratory Tests 10/03/24 10/04/24 10/06/24 14:20 05:49 13:25 WBC 30.2 H 24.7 H 10.5 10/07/24 10/08/24 10/09/24 06:15 06:13 06:50 WBC 11.5 H 14.2 H 16.5 H 10/08: wBC elevated today to 14.2. respiratory status is not worse. She has not been running fevers. blood cultures remain negative with no growth for 5 days. Given rising WBC and suspicion of infection in her foot, I will keep her on Cefepime and add vancomycin to cover better for skin pathogens. 10/07: Alert and oriented today. has some discomfort in her left arm. no fevers. Her white blood cell count is up from 10.5-11.5. She is currently on cefepime for urinary tract infection. 10/06: She continues to improve with regards to her mental status. She had central line placement today and her leukocytosis has resolved. no fevers. Blood cultures with no growth. 10/05:Alert and oriented x 3. I do not have data regarding her leukocytosis today. Blood cultures show no growth x 2 days. Urine cultures positive for E. coli sensitive to cefepime. 10/04: mental status is slightly improved. She wakes up and is oriented to self and to place, but not to time. states this is not unusual. She has not had any fevers and her leukocytosis is decreasing. remains very sleepy. Blood cultures show no growth after 1 day.. on admission: 78-year-old female with multiple medical problems presents to the emergency department with acute mental status changes white blood cell count of 30.2, afebrile heart rate in the low 100s and blood pressure as low as 97/57. She meets sepsis criteria. I am admitting her for sepsis with presumed source of urinary tract.Lactic acid is 1.2. I will not repeat this. On exam her mucous membranes are dry and she has not been eating and drinking well at home. She has a Diallo in place and her urinary output over the last 24 hours is approximately 50 cc/h over the last 24 hours as determined by calculations of urinary output provided by her . Qualifiers: Sepsis acute organ dysfunction status: with acute organ dysfunction S epsis type: sepsis due to unspecified organism Severe sepsis acute organ dysfunction type: encephalopathy Severe sepsis shock status: without septic shock Qualified Code(s): A41.9 - Sepsis, unspecified organism; R65.20 - Severe sepsis without septic shock; G93.41 - Metabolic encephalopathy (2) Generalized edema due to fluid overload: Impression: She had been off the Bumex for about a month. There was some difficulty with obtaining a prescription and then some [facility]. She has been like this with his generalized edema for about a week prior to admission 10/08: I have placed her on a Lasix drip. I have given her daily albumin, in addition to diuretic treatment. I am not seeing significant diuresis. Her renal function is incrementally worse, but not declining sharply. I am adding Jardiance 10mg a day today. Hopefully this will help her with fluid balance 2 10/03/24 10/04/24 10/06/24 14:20 05:49 13:25 Creatinine 1.8 H 1.8 H 2.1 H 10/07/24 10/08/24 06:15 06:13 Creatinine 2.2 H 2.2 H .10/09: her urine output has not responded well. her chest xr looks worse (increasing pulm congestion). Peripheral edema is not any better. I have stopped Lasix drip, started Lasix 40mg IV BID, albumin 25g TID. Her oxygenation worsened as did her blood pressure as she proceeded through the day. I have transferred her to the intensive care unit and placed her on Levophed drip. She is satting 99% on 2 L via nasal cannula. I think with her worsening edema and anuric renal failure she will need to be transferred to a center with nephrology. I spoke to Pranav Hui MD at [facility] and she will be transferred to the intensive care unit there with nephrology consultation. She may require dialysis. Her consents to dialysis if needed. (3) Acute UTI: Impression: Urine culture done on the date of her initial emergency department visit shows E. coli. It is sensitive to cefepime. Which is her current antibiotic therapy. She is day 6 , with indwelling diallo, for urinary tract infection. We have NOT changed the diallo since admit, has been in place since 10/01. (4) Acute urinary retention: Impression: Diagnosed on 01 October at the time of her ED visit she is bringing in a Diallo which is in place from home. She was due to follow-up with urology in the outpatient environment. I will leave the Diallo in place. urine is dark and blood tinged. I stopped Eliquis 10/08 due to oozing around the central line, hematuria. I have considered lengthening duration of abx for URI given indwelling diallo, and extended duration to 7 days, but also I am continuing and broading coverage due to my concerns about her heel ulceration. . (5) Decubital ulcer: Impression: Please see my physical exam for documentation of the ulcerations. There is been a change in the left heel ulceration. There is some surrounding erythema and there is a foul smell coming from the wound. There is definitely concern for calcaneal involvement on exam. MRI ordered, and there is some question about if it can be completed. And lieu of MRI did obtain a noncontrast lower extremity CT. The read on this is pending at this time. Qualifiers: Pressure injury location: heel (6) Hyponatremia: Impression: This is likely due to the lasix drip. potassium remains steady. Sodium is worsening and I have added salt tabs, however she is not swallowing today. We are continuing to try to diurese and give albumin. 40 mg of Lasix IV twice daily with 25 g of albumin 3 times dailyLaboratory Tests 10/04/24 10/06/24 10/07/24 05:49 13:25 06:15 Sodium 133 L 131 L 130 L 10/08/24 10/09/24 06:13 07:55 Sodium 130 L 129 L 2 (7) Meningioma: Impression: By history. It appears this has not been followed up. We will need to keep this in mind and consider MRI while she is here is getting her out of the house to appointments is very very difficult. Brain MRI compared to head CT of shows right frontotemporal dural based enhancing mass measuring 3.1 cm consistent with meningioma there is mass effect on the adjacent brain parenchyma without associated edema. Mucosal thickening and near complete excessive location of the left maxillary sinus Age-related global volume loss and chronic microvascular ischemic change (8) Diastolic heart failure with preserved ejection fraction: Impression: Chest x-ray shows cardiomegaly with pulmonary vascular congestion. Her BNP was 238 at her emergency department visit on the . She has severe peripheral edema Review of records shows most recent echo done at [facility] in March 2024 showing ejection fraction of 55 to 60% with severe diastolic dysfunction. (9) Chronic kidney disease, stage 4 (severe): Impression: incremental worsening of renal status. See above. (10) Insulin dependent diabetes mellitus: Impression: Her A1c is 4.8%. I have changed her blood glucose testing to twice daily. I have discontinued her insulin and would recommend against continuing Trulicity in the outpatient environment. (11) Chronic atrial fibrillation: Impression: Home medication of Eliquis, renal dosing. No beta-blockers on the home med regimen. Although careful review of notes does show previously on metoprolol succinate 25 mg a day. (12) Do not resuscitate: Impression: Decision made not to resuscitate. Please see advance care planning note (13) Subclinical hypothyroidism: Impression: Elevated TSH with normal free T4. She does carry a previous diagnosis of subclinical hypothyroidism. Would defer further management to the outpatient environment. I have spent 65 minutes in the care of this patient today. This includes time [id number], review and ordering of diagnostic imaging and laboratory studies.. Monitoring the patient's signs symptoms, evaluation of medication effectiveness and patient's response to treatment.
[2024-10-09] MEDS: ALBUMIN 25% 12.5 GM/50 ML VIAL IV SCH (13:39)
--- NOTE | 2024-10-09 14:39 | XRAY Report ---
PROCEDURE: XR Chest 1V INDICATIONS: Candice TECHNIQUE: One view of the chest was acquired. COMPARISON: Chest x-ray 10/06/2024. FINDINGS: Surgical changes and devices: Left-sided central venous catheter distal tip projecting over the dist al SVC. Lungs and pleura: Patchy bilateral pulmonary opacities and increased vascularity slightly more promi nent. Minimal effusions. Mediastinum: Mediastinal contours appear normal. Heart size is enlarged. Bones and chest wall: No suspicious bony lesions. Overlying soft tissues appear unremarkable. IMPRESSION: Persistent questionable a slightly progressive appearance of patchy bilateral pulmonary opacities, ef fusions and increased vascularity suggestive of edema. Reviewed by: Moriah Brown MD on 10/09/2024 2:38 PM PST Approved by: Moriah Brown MD on 10/09/2024 2:38 PM PST Station ID: [id number]
[2024-10-09] MEDS: FUROSEMIDE 40 MG/4 ML VIAL IVP SCH (14:45)
[2024-10-09] MEDS: INSULIN LISPRO 300 UNIT/3 ML PEN SUBQ SCH (17:07)
[2024-10-09] MEDS: NOREPINEPHRINE/0.9 % NS 8 MG/250 ML BAG IV SCH (18:54)
--- NOTE | 2024-10-09 19:59 | Discharge Summary ---
Discharge Summary Admit Date: 10/03/24 Discharge Date: 10/09/24 Discharging Provider: Korin Siddiqui PA-C Primary Care Provider: Marysol Loya Code Status: Do Not Attempt Resuscitation ALLERGIES Allergies Allergy/AdvReac Type Severity Reaction Status Date / Time erythromycin base Allergy Hives Verified 10/03/24 13:51 (Erythromycin Base) hydrocodone bitartrate * Allergy Hives Verified 10/03/24 13:51 (From Vicodin) levofloxacin (From Levaquin) Allergy Itching Verified 10/03/24 13:51 penicillin G Allergy Anaphylaxis Verified 10/03/24 13:51 propoxyphene HCl * (From Allergy Hives Verified 10/03/24 13:51 Darvon) adhesive tape AdvReac Intermediate Paper tape Verified 10/03/24 13:51 removes skin acetaminophen (From Vicodin) AdvReac Unknown Rash Verified 10/03/24 13:51 hydrocodone (From Vicodin) AdvReac Unknown Rash Verified 10/03/24 13:51 propoxyphene (From Darvon) AdvReac Unknown Rash Verified 10/03/24 13:51 latex AdvReac Itching Verified 10/03/24 13:51 MEDICATIONS Ambulatory Orders Medication Instructions Recorded Confirmed Diabetic Shoes 09/04/24 09/04/24 Permanent Disabled Placard 09/04/24 09/04/24 blood-glucose sensor (Dexcom G6 09/04/24 09/04/24 Sensor device) incontinence pad, liner, disp 09/04/24 09/04/24 (Bladder Control Pad Ultra Plus) acetaminophen 500 mg tablet 500 mg PO Q8H PRN fever or pain 09/19/24 10/03/24 albuterol sulfate 2.5 mg/3 mL 2.5 mg inhalation Q2H PRN 09/19/24 10/03/24 (0.083 %) solution for nebulization shortness of breath or wheezing cholecalciferol (vitamin D3) 25 25 mcg PO QDAY 09/19/24 10/03/24 mcg (1,000 unit) capsule coenzyme Q10 100 mg capsule (Co 100 mg PO QDAY 09/19/24 10/03/24 Q-10) colchicine 0.6 mg tablet 1.2 mg PO ONCE PRN GOUT FLARE 09/19/24 10/04/24 melatonin 3 mg tablet 6 mg PO HS PRN sleep 09/19/24 10/03/24 allopurinol 300 mg tablet 300 mg PO QDAY gout prevention #90 09/20/24 10/03/24 tabs apixaban 2.5 mg tablet 2.5 mg PO BID a- fib #180 tabs 09/20/24 10/03/24 atorvastatin 10 mg tablet (Lipitor) 10 mg PO QPM high cholesterol #90 09/20/24 10/03/24 tabs bumetanide 1 mg tablet 2 mg (2 x 1 mg) PO BID DIURETIC 09/20/24 10/03/24 #180 tabs cetirizine 10 mg chewable tablet 5 mg (1/2 x 10 mg) PO QDAY 09/20/24 10/03/24 ALLERGIES #45 tabs dulaglutide 1.5 mg/0.5 mL 1.5 mg (0.5 mL) subcut QWEEK #2 mL 09/20/24 10/03/24 subcutaneous [facility] esomeprazole magnesium 40 mg 40 mg PO QDAY heartburn #90 caps 09/20/24 10/03/24 capsule,delayed release fluticasone propionate 50 1 spray intranasal QDAY allergic 09/20/24 10/03/24 mcg/actuation nasal rhinitis #16 grams spray,suspension gabapentin 300 mg capsule 900 mg (3 x 300 mg) PO BID PAIN 09/20/24 10/03/24 #540 caps insulin glargine 100 unit/mL (3 15 unit (0.15 mL) subcut QAM DM2 09/20/24 10/03/24 mL) subcutaneous pen (Lantus #15 mL Solostar U-100 Insulin) metolazone 5 mg tablet 5 mg PO .COMPLEX CONGESTIVE HEART 09/20/24 10/03/24 FAILURE #32 tabs midodrine 10 mg tablet 10 mg PO TID for low BP #270 tabs 09/20/24 10/03/24 pen needle, diabetic 31 gauge x #100 ea 09/20/24 09/20/24 5/16" potassium chloride 10 mEq 10 meq PO QDAY potassium 09/20/24 10/03/24 tablet,extended release (Klor-Con) supplement #90 tabs cephalexin 500 mg capsule 500 mg PO TID 7 days #21 caps 10/01/24 10/03/24 trazodone 50 mg tablet 50 mg PO QPM depression and 10/04/24 10/04/24 insomnia empagliflozin 10 mg tablet 10 mg PO DAILY #30 tabs 10/08/24 (Jardiance) LABS 10/09/24 06:50 10/09/24 07:55 Discharge Plan Discharge Patient Disposition: 02 Transfer Acute Care Hosp Condition: Serious Prescriptions: New Jardiance 10 mg tablet 10 mg PO DAILY Qty: 30 2RF No Action atorvastatin [Lipitor] 10 mg tablet 10 mg PO QPM Qty: 90 3RF gabapentin 300 mg capsule 900 mg PO BID Qty: 540 3RF cephalexin 500 mg capsule 500 mg PO TID 7 Days Qty: 21 0RF trazodone 50 mg tablet 50 mg PO QPM bumetanide 1 mg tablet 2 mg PO BID Qty: 180 3RF (DME) Bladder Control Pad Ultra Plus Pad See Rx Instructions .ROUTE Rx Instructions: As directed (DME) Dexcom G6 Sensor Device See Rx Instructions .ROUTE Rx Instructions: As directed (DME) Diabetic Shoes Unit See Rx Instructions .ROUTE Rx Instructions: As directed (DME) Permanent Disabled Placard Misc See Rx Instructions .ROUTE Rx Instructions: As directed acetaminophen 500 mg tablet 500 mg PO Q8H PRN (Reason: fever or pain) coenzyme Q10 [Co Q-10] 100 mg capsule 100 mg PO QDAY colchicine 0.6 mg tablet 1.2 mg PO ONCE PRN (Reason: GOUT FLARE) Rx Instructions: FOLLOWED BY 0.6MG 1 HOUR AFTER (MAX 1.8MG PER DAY) melatonin 3 mg tablet 6 mg PO HS PRN (Reason: sleep) cholecalciferol (vitamin D3) 25 mcg (1,000 unit) capsule 25 mcg PO QDAY albuterol sulfate 2.5 mg /3 mL (0.083 %) solution for nebulization 2.5 mg inhalation Q2H PRN (Reason: shortness of breath or wheezing) esomeprazole magnesium 40 mg capsule,delayed release(DR/EC) 40 mg PO QDAY Qty: 90 3RF potassium chloride [Klor-Con 10] 10 mEq tablet extended release 10 meq PO QDAY Qty: 90 3RF fluticasone propionate 50 mcg/actuation spray,suspension 1 spray intranasal QDAY Qty: 16 6RF Rx Instructions: administer into each nostril allopurinol 300 mg tablet 300 mg PO QDAY Qty: 90 1RF apixaban 2.5 mg tablet 2.5 mg PO BID Qty: 180 3RF midodrine 10 mg tablet 10 mg PO TID Qty: 270 3RF Rx Instructions: do not give last dose of day after 6PM or within 4 hrs of bedtime HOLD FOR SYSTOLIC BP > 165 cetirizine 10 mg tablet,chewable 5 mg PO QDAY Qty: 45 3RF metolazone 5 mg tablet 5 mg PO .COMPLEX Qty: 32 3RF Rx Instructions: 5 mg orally every Tues and Sat; (DME) pen needle, diabetic 31 gauge x 5/16" needle See Rx Instructions .Route Qty: 100 3RF Rx Instructions: USE WITH INSULIN PEN ONCE DAILY Trulicity 1.5 mg/0.5 mL pen injector 1.5 mg subcut QWEEK Qty: 2 3RF insulin glargine [Lantus Solostar U-100 Insulin] 100 unit/mL (3 mL) insulin pen 15 unit subcut QAM Qty: 15 3RF Print Language: Syriac
[2024-10-10] MEDS: ethyl alcohoL 62% SWAB AMPULE NAS SCH (09:08)
[2024-10-10 09:25] LABS: HCT - HEMATOCRIT 27.7 % (37.0-47.0); HGB - HEMOGLOBIN 9.4 g/dL (12.0-16.0); MEAN CORPUSCULAR HEMOGLOBIN 32.1 pg (27.0-31.0); MEAN CORPUSCULAR HGB CONC 33.9 g/dL (32.0-36.0); MEAN CORPUSCULAR VOLUME 94.5 fL (81.0-99.0); RED BLOOD COUNT 2.93 10^6/uL (4.20-5.40); RED CELL DISTRIBUTION WIDTH 18.7 % (12.0-15.0); WHITE BLOOD COUNT 29.5 x10^3/uL (4.8-10.8)
[2024-10-10 09:47] LABS: CALCIUM 8.1 mg/dL (8.5-10.3); CREATININE 2.5 mg/dL (0.6-1.3); MAGNESIUM 1.9 mg/dL (1.7-2.3); POTASSIUM 3.6 mmol/L (3.5-4.5)
--- NOTE | 2024-10-10 11:12 | CT Report ---
PROCEDURE: CT Lower Extremity LT WO INDICATIONS: left heel ulceration ? osteo TECHNIQUE: Noncontrast 3-mm axial sections acquired of the left ankle and hindfoot, with coronal and sagittal re formats. For radiation dose reduction, the following was used: automated exposure control, adjustme nt of mA and/or kV according to patient size. COMPARISON: None. FINDINGS: Image quality: Excellent. Bones: Diffuse osseous demineralization, superimposed on diffuse osteopenia. No acute fracture or dis location. No osseous erosions, particularly at the plantar calcaneal heel. Joints: No significant tibiotalar joint effusion. The joint spaces are preserved. Muscles: Mild-moderate fatty replacement of the plantar foot musculature. Tendons: Curvilinear morphology of the peroneus brevis tendon, possibly secondary to underlying split tear (10/58). Otherwise, the visualized flexor and extensor tendon contours are within normal limits . Vessels: Posterior tibial and dorsalis pedis arterial calcifications without aneurysmal dilatation. Other: Plantar calcaneal enthesopathy (8/37). No subcutaneous or intramuscular emphysema. Soft tissue contour defect/ulceration at the level of the plantar lateral heel (12/26). Diffuse soft tissue jono a predominantly along the dorsum of the hindfoot and midfoot (14/40). IMPRESSION: 1.No CT evidence of osteomyelitis, although the disuse osteopenia and demineralization present confou nding factors for evaluation of early osteomyelitis at the calcaneus adjacent to the ulcer. Please co rrelate with a probe to bone test for osseous involvement. 2.Diffuse soft tissue edema, which can be seen with cellulitis, lymphedema, or venous congestion. Reviewed by: Franky Covarrubias MD on 10/10/2024 11:11 AM PST Approved by: Franky Covarrubias MD on 10/10/2024 11:11 AM PST Station ID: [id number]
[2024-10-10] MEDS: HYDROmorphone 0.5 MG/0.5 ML SYRINGE IVP PRN (13:42)
[2024-10-10] MEDS: HALOPERIDOL 5 MG/ML VIAL IVP PRN (14:08)
[2024-10-10] MEDS: GLYCOPYRROLATE 1 MG/5 ML VIAL SUBQ PRN (15:10)
[2024-10-10] MEDS ORDERED: VANCOMYCIN INJ 1.75 GM in SODIUM CHLORIDE 0.9% 500 ML IV SCH (18:00)
--- NOTE | 2024-10-10 20:00 | PROVIDER PROGRESS NOTE ---
Subjective Prog Note Date Prog Note Date: 10/10/24 Subjective Pt reports feeling: No change Current Medications Current Medications Current Medications: Current Medications Generic Name Dose Route Start Last Admin Trade Name Freq PRN Reason Stop Dose Admin Albuterol 2.5 mg 10/03/24 19:14 Albuterol Neb 2.5 Mg/3 Ml INH Q2H PRN shortness of breath or wheezing Atropine Sulfate 2 drops 10/10/24 15:21 Atropine 1% Ophth Drops 2 Ml SL Q2H PRN Excessive Secretions Glycopyrrolate 0.2 mg 10/10/24 13:11 10/10/24 15:10 Glycopyrrolate 1 Mg/5 Ml Vial SUBQ 0.2 mg Q4H PRN Administration Excessive secretions Haloperidol 0.5 mg 10/10/24 13:11 10/10/24 14:08 Haloperidol 5 Mg/Ml Vial IVP 0.5 mg Q6H PRN Administration Nausea / Vomiting Hydromorphone HCl 0.5 mg 10/10/24 13:13 10/10/24 13:42 Hydromorphone 0.5 Mg/0.5 Ml Syringe IVP 0.5 mg Q2H PRN Administration Severe Pain (Level 7-10) Objective Vital Signs/Intake & Output Reviewed Vital Signs: Yes Vital Signs: Vital Signs x48h Temp Pulse Resp BP Pulse Ox O2 Flow Rate 10/10/24 13:00 86 16 45/28 L 98 1 10/10/24 12:00 36.9 C 82 17 97 1 Intake & Output: Intake & Output 10/07/24 10/08/24 10/09/24 10/10/24 23:59 23:59 23:59 23:59 Intake Total 1430 / 1430 1450 / 1450 588 / 588 391 / 391 Output Total 225 / 225 350 / 350 232 / 232 201 / 201 Balance 1205 / 1205 1100 / 1100 356 / 356 190 / 190 Objective General Appearance: positive No acute distress and Other (non verbal today) Eyes Bilateral: positive PERRL and Conjunctivae nml ENT: positive ENT inspection nml Neck: positive Nml inspection and Other (some old blood around left IJ central line site) Respiratory: positive No respiratory distress and Breath sounds nml (diminished at bases- this is no change from previous) Cardiovascular: positive Regular rate & rhythm and Other (blood pressure is low) Abdomen: positive Non-tender, No distention and Other (obese) Skin: positive Other (hemorrhagic bullous lesions at the back of bilateral hands are intact. remains with some skin weeping at extremities x4) Extremities: positive Pedal edema (severe) and Other (left heel wound- black eschar which appears more moist. there is mild erythema around the wound edges, but minimal drainage. there is a foul odor from the wound,) Lab Results 10/10/24 09:05 10/10/24 09:05 Other Labs: Lab Results x24hrs 10/10/24 10/10/24 10/09/24 Range/Units 12:40 09:05 21:23 WBC 29.5 H (4.8-10.8) x10^3/uL RBC 2.93 L (4.20-5.40) 10^6/uL Hgb 9.4 L (12.0-16.0) g/dL Hct 27.7 L (37.0-47.0) % MCV 94.5 (81.0-99.0) fL MCH 32.1 H (27.0-31.0) pg MCHC 33.9 (32.0-36.0) g/dL RDW 18.7 H (12.0-15.0) % Plt Count 93 L (130-450) 10^3/uL MPV 12.0 H (7.9-10.8) fL Sodium 131 L (135-145) mmol/L Potassium 3.6 (3.5-4.5) mmol/L Chloride 92 L (101-111) mmol/L Carbon Dioxide 30 (21-32) mmol/L Anion Gap 9.0 (6-13) BUN 58 H (6-20) mg/dL Creatinine 2.5 H (0.6-1.3) mg/dL Estimated GFR (MDRD) 19 L (>89) Glucose 264 H (74-104) mg/dL POC Whole Bld Glucose 252 248 215 (70-100) mg/dL Calcium 8.1 L (8.5-10.3) mg/dL Magnesium 1.9 (1.7-2.3) mg/dL Nasal Screen MRSA (PCR) (NEGATIVE) 10/09/24 Range/Units 18:30 WBC (4.8-10.8) x10^3/uL RBC (4.20-5.40) 10^6/uL Hgb (12.0-16.0) g/dL Hct (37.0-47.0) % MCV (81.0-99.0) fL MCH (27.0-31.0) pg MCHC (32.0-36.0) g/dL RDW (12.0-15.0) % Plt Count (130-450) 10^3/uL MPV (7.9-10.8) fL Sodium (135-145) mmol/L Potassium (3.5-4.5) mmol/L Chloride (101-111) mmol/L Carbon Dioxide (21-32) mmol/L Anion Gap (6-13) BUN (6-20) mg/dL Creatinine (0.6-1.3) mg/dL Estimated GFR (MDRD) (>89) Glucose (74-104) mg/dL POC Whole Bld Glucose (70-100) mg/dL Calcium (8.5-10.3) mg/dL Magnesium (1.7-2.3) mg/dL Nasal Screen MRSA (PCR) POSITIVE A* (NEGATIVE) Diagnostic Imaging Diagnostic Imaging Comments: chest XR today, increasing pulmonary congestion Assessment/Plan Problem List (1) Sepsis: Impression: 10/10/2024: Was called in the room this morning to discuss plan of care with her . and son are in agreement that patient would like to be comfort measures at this time. Transfer to outside facility has been canceled, and Levophed has been discontinued. All medications other than those for her comfort have been discontinued. Bereavement court ordered. 10/09: the trajectory of her WBC follows with the treatment of her urinary tract infection and then the worsening of her heel. MRI is pending of the foot. I have called MRI to check on this study today. her overall status is worsening this AM. VBG looks unremarkable. She is requiring oxygen now, and her chest XR shows pulmonary congestion, comparing images from 10/01 to today, worsening. Please see further discussion below Laboratory Tests 10/03/24 10/04/24 10/06/24 14:20 05:49 13:25 WBC 30.2 H 24.7 H 10.5 10/07/24 10/08/24 10/09/24 06:15 06:13 06:50 WBC 11.5 H 14.2 H 16.5 H 10/08: wBC elevated today to 14.2. respiratory status is not worse. She has not been running fevers. blood cultures remain negative with no growth for 5 days. Given rising WBC and suspicion of infection in her foot, I will keep her on Cefepime and add vancomycin to cover better for skin pathogens. 10/07: Alert and oriented today. has some discomfort in her left arm. no fevers. Her white blood cell count is up from 10.5-11.5. She is currently on cefepime for urinary tract infection. 10/06: She continues to improve with regards to her mental status. She had central line placement today and her leukocytosis has resolved. no fevers. Blood cultures with no growth. 10/05:Alert and oriented x 3. I do not have data regarding her leukocytosis today. Blood cultures show no growth x 2 days. Urine cultures positive for E. coli sensitive to cefepime. 10/04: mental status is slightly improved. She wakes up and is oriented to self and to place, but not to time. states this is not unusual. She has not had any fevers and her leukocytosis is decreasing. remains very sleepy. Blood cultures show no growth after 1 day.. on admission: 78-year-old female with multiple medical problems presents to the emergency department with acute mental status changes white blood cell count of 30.2, afebrile heart rate in the low 100s and blood pressure as low as 97/57. She meets sepsis criteria. I am admitting her for sepsis with presumed source of urinary tract.Lactic acid is 1.2. I will not repeat this. On exam her mucous membranes are dry and she has not been eating and drinking well at home. She has a Diallo in place and her urinary output over the last 24 hours is approximately 50 cc/h over the last 24 hours as determined by calculations of urinary output provided by her . Qualifiers: Sepsis acute organ dysfunction status: with acute organ dysfunction S epsis type: sepsis due to unspecified organism Severe sepsis acute organ dysfunction type: encephalopathy Severe sepsis shock status: without septic shock Qualified Code(s): A41.9 - Sepsis, unspecified organism; R65.20 - Severe sepsis without septic shock; G93.41 - Metabolic encephalopathy (2) Generalized edema due to fluid overload: Impression: She had been off the Bumex for about a month. There was some difficulty with obtaining a prescription and then some [facility]. She has been like this with his generalized edema for about a week prior to admission 10/08: I have placed her on a Lasix drip. I have given her daily albumin, in addition to diuretic treatment. I am not seeing significant diuresis. Her renal function is incrementally worse, but not declining sharply. I am adding Jardiance 10mg a day today. Hopefully this will help her with fluid balance 2 10/03/24 10/04/24 10/06/24 14:20 05:49 13:25 Creatinine 1.8 H 1.8 H 2.1 H 10/07/24 10/08/24 06:15 06:13 Creatinine 2.2 H 2.2 H .10/09: her urine output has not responded well. her chest xr looks worse (increasing pulm congestion). Peripheral edema is not any better. I have stopped Lasix drip, started Lasix 40mg IV BID, albumin 25g TID. Her oxygenation worsened as did her blood pressure as she proceeded through the day. I have transferred her to the intensive care unit and placed her on Levophed drip. She is satting 99% on 2 L via nasal cannula. I think with her worsening edema and anuric renal failure she will need to be transferred to a center with nephrology. I spoke to Pranav Hui MD at [facility] and she will be transferred to the intensive care unit there with nephrology consultation. She may require dialysis. Her consents to dialysis if needed. (3) Acute UTI: Impression: Urine culture done on the date of her initial emergency department visit shows E. coli. It is sensitive to cefepime. Which is her current antibiotic therapy. She is day 6 , with indwelling diallo, for urinary tract infection. We have NOT changed the diallo since admit, has been in place since 10/01. (4) Acute urinary retention: Impression: Diagnosed on 01 October at the time of her ED visit she is bringing in a Diallo which is in place from home. She was due to follow-up with urology in the outpatient environment. I will leave the Diallo in place. urine is dark and blood tinged. I stopped Eliquis 10/08 due to oozing around the central line, hematuria. I have considered lengthening duration of abx for URI given indwelling diallo, and extended duration to 7 days, but also I am continuing and broading coverage due to my concerns about her heel ulceration. . (5) Decubital ulcer: Impression: Please see my physical exam for documentation of the ulcerations. There is been a change in the left heel ulceration. There is some surrounding erythema and there is a foul smell coming from the wound. There is definitely concern for calcaneal involvement on exam. MRI ordered, and there is some question about if it can be completed. And lieu of MRI did obtain a noncontrast lower extremity CT. The read on this is pending at this time. Qualifiers: Pressure injury location: heel (6) Hyponatremia: Impression: This is likely due to the lasix drip. potassium remains steady. Sodium is worsening and I have added salt tabs, however she is not swallowing today. We are continuing to try to diurese and give albumin. 40 mg of Lasix IV twice daily with 25 g of albumin 3 times dailyLaboratory Tests 10/04/24 10/06/24 10/07/24 05:49 13:25 06:15 Sodium 133 L 131 L 130 L 10/08/24 10/09/24 06:13 07:55 Sodium 130 L 129 L 2 (7) Meningioma: Impression: By history. It appears this has not been followed up. We will need to keep this in mind and consider MRI while she is here is getting her out of the house to appointments is very very difficult. Brain MRI compared to head CT of shows right frontotemporal dural based enhancing mass measuring 3.1 cm consistent with meningioma there is mass effect on the adjacent brain parenchyma without associated edema. Mucosal thickening and near complete excessive location of the left maxillary sinus Age-related global volume loss and chronic microvascular ischemic change (8) Diastolic heart failure with preserved ejection fraction: Impression: Chest x-ray shows cardiomegaly with pulmonary vascular congestion. Her BNP was 238 at her emergency department visit on the . She has severe peripheral edema Review of records shows most recent echo done at [facility] in March 2024 showing ejection fraction of 55 to 60% with severe diastolic dysfunction. (9) Chronic kidney disease, stage 4 (severe): Impression: incremental worsening of renal status. See above. (10) Insulin dependent diabetes mellitus: Impression: Her A1c is 4.8%. I have changed her blood glucose testing to twice daily. I have discontinued her insulin and would recommend against continuing Trulicity in the outpatient environment. (11) Chronic atrial fibrillation: Impression: Home medication of Eliquis, renal dosing. No beta-blockers on the home med regimen. Although careful review of notes does show previously on metoprolol succinate 25 mg a day. (12) Do not resuscitate: Impression: Decision made not to resuscitate. Please see advance care planning note (13) Subclinical hypothyroidism: Impression: Elevated TSH with normal free T4. She does carry a previous diagnosis of subclinical hypothyroidism. Would defer further management to the outpatient environment. I have spent 65 minutes in the care of this patient today. This includes time [id number], review and ordering of diagnostic imaging and laboratory studies.. Monitoring the patient's signs symptoms, evaluation of medication effectiveness and patient's response to treatment.
[2024-10-11] MEDS: ATROPINE 1% OPHTH DROPS 2 ML SL PRN (04:52)
[2024-10-11 09:07] VITALS: BP 84/57; TEMP 98.1; O2SAT 91
--- NOTE | 2024-10-11 17:35 | PROVIDER PROGRESS NOTE ---
Subjective Prog Note Date Prog Note Date: 10/11/24 Subjective Pt reports feeling: No change Current Medications Current Medications Current Medications: Current Medications Generic Name Dose Route Start Last Admin Trade Name Freq PRN Reason Stop Dose Admin Albuterol 2.5 mg 10/03/24 19:14 Albuterol Neb 2.5 Mg/3 Ml INH Q2H PRN shortness of breath or wheezing Atropine Sulfate 2 drops 10/10/24 15:21 10/11/24 04:52 Atropine 1% Ophth Drops 2 Ml SL 2 drops Q2H PRN Administration Excessive Secretions Glycopyrrolate 0.2 mg 10/10/24 13:11 10/11/24 17:16 Glycopyrrolate 1 Mg/5 Ml Vial SUBQ 0.2 mg Q4H PRN Administration Excessive secretions Haloperidol 0.5 mg 10/10/24 13:11 10/10/24 14:08 Haloperidol 5 Mg/Ml Vial IVP 0.5 mg Q6H PRN Administration Nausea / Vomiting Hydromorphone HCl 0.5 mg 10/10/24 13:13 10/11/24 16:18 Hydromorphone 0.5 Mg/0.5 Ml Syringe IVP 0.5 mg Q2H PRN Administration Severe Pain (Level 7-10) Objective Vital Signs/Intake & Output Reviewed Vital Signs: Yes Vital Signs: Vital Signs x48h Temp Pulse Resp BP Pulse Ox O2 Flow Rate 10/10/24 13:00 86 16 45/28 L 98 1 10/10/24 12:00 36.9 C 82 17 97 1 Intake & Output: Intake & Output 10/08/24 10/09/24 10/10/24 10/11/24 23:59 23:59 23:59 23:59 Intake Total 1450 / 1450 588 / 588 391 / 391 230 / 230 Output Total 350 / 350 232 / 232 214 / 214 20 / 20 Balance 1100 / 1100 356 / 356 177 / 177 210 / 210 Objective General Appearance: positive No acute distress and Other (non verbal today) Eyes Bilateral: positive PERRL and Conjunctivae nml ENT: positive ENT inspection nml Neck: positive Nml inspection and Other (some old blood around left IJ central line site) Respiratory: positive No respiratory distress and Breath sounds nml (diminished at bases- this is no change from previous) Cardiovascular: positive Regular rate & rhythm and Other (blood pressure is low) Abdomen: positive Non-tender, No distention and Other (obese) Skin: positive Other (hemorrhagic bullous lesions at the back of bilateral hands are intact. remains with some skin weeping at extremities x4) Extremities: positive Pedal edema (severe) and Other (left heel wound- black eschar which appears more moist. there is mild erythema around the wound edges, but minimal drainage. there is a foul odor from the wound,) Lab Results 10/10/24 09:05 10/10/24 09:05 Other Labs: Lab Results x24hrs 10/10/24 10/10/24 10/09/24 Range/Units 12:40 09:05 21:23 WBC 29.5 H (4.8-10.8) x10^3/uL RBC 2.93 L (4.20-5.40) 10^6/uL Hgb 9.4 L (12.0-16.0) g/dL Hct 27.7 L (37.0-47.0) % MCV 94.5 (81.0-99.0) fL MCH 32.1 H (27.0-31.0) pg MCHC 33.9 (32.0-36.0) g/dL RDW 18.7 H (12.0-15.0) % Plt Count 93 L (130-450) 10^3/uL MPV 12.0 H (7.9-10.8) fL Sodium 131 L (135-145) mmol/L Potassium 3.6 (3.5-4.5) mmol/L Chloride 92 L (101-111) mmol/L Carbon Dioxide 30 (21-32) mmol/L Anion Gap 9.0 (6-13) BUN 58 H (6-20) mg/dL Creatinine 2.5 H (0.6-1.3) mg/dL Estimated GFR (MDRD) 19 L (>89) Glucose 264 H (74-104) mg/dL POC Whole Bld Glucose 252 248 215 (70-100) mg/dL Calcium 8.1 L (8.5-10.3) mg/dL Magnesium 1.9 (1.7-2.3) mg/dL Nasal Screen MRSA (PCR) (NEGATIVE) 10/09/24 Range/Units 18:30 WBC (4.8-10.8) x10^3/uL RBC (4.20-5.40) 10^6/uL Hgb (12.0-16.0) g/dL Hct (37.0-47.0) % MCV (81.0-99.0) fL MCH (27.0-31.0) pg MCHC (32.0-36.0) g/dL RDW (12.0-15.0) % Plt Count (130-450) 10^3/uL MPV (7.9-10.8) fL Sodium (135-145) mmol/L Potassium (3.5-4.5) mmol/L Chloride (101-111) mmol/L Carbon Dioxide (21-32) mmol/L Anion Gap (6-13) BUN (6-20) mg/dL Creatinine (0.6-1.3) mg/dL Estimated GFR (MDRD) (>89) Glucose (74-104) mg/dL POC Whole Bld Glucose (70-100) mg/dL Calcium (8.5-10.3) mg/dL Magnesium (1.7-2.3) mg/dL Nasal Screen MRSA (PCR) POSITIVE A* (NEGATIVE) Diagnostic Imaging Diagnostic Imaging Comments: chest XR today, increasing pulmonary congestion Assessment/Plan Problem List (1) Sepsis: Impression: 10/11/2024: Continues to be comfort measures only. Severely hypoxic, hypotensive at time of my interview. is imminent, so no need for hospice referral at this time. Patient is comfortable, comfort med orders in place 10/10/2024: Was called in the room this morning to discuss plan of care with her . and son are in agreement that patient would like to be comfort measures at this time. Transfer to outside facility has been canceled, and Levophed has been discontinued. All medications other than those for her comfort have been discontinued. Bereavement court ordered. 10/09: the trajectory of her WBC follows with the treatment of her urinary tract infection and then the worsening of her heel. MRI is pending of the foot. I have called MRI to check on this study today. her overall status is worsening this AM. VBG looks unremarkable. She is requiring oxygen now, and her chest XR shows pulmonary congestion, comparing images from 10/01 to today, worsening. Please see further discussion below Laboratory Tests 10/03/24 10/04/24 10/06/24 14:20 05:49 13:25 WBC 30.2 H 24.7 H 10.5 10/07/24 10/08/24 10/09/24 06:15 06:13 06:50 WBC 11.5 H 14.2 H 16.5 H 10/08: wBC elevated today to 14.2. respiratory status is not worse. She has not been running fevers. blood cultures remain negative with no growth for 5 days. Given rising WBC and suspicion of infection in her foot, I will keep her on Cefepime and add vancomycin to cover better for skin pathogens. 10/07: Alert and oriented today. has some discomfort in her left arm. no fevers. Her white blood cell count is up from 10.5-11.5. She is currently on cefepime for urinary tract infection. 10/06: She continues to improve with regards to her mental status. She had central line placement today and her leukocytosis has resolved. no fevers. Blood cultures with no growth. 10/05:Alert and oriented x 3. I do not have data regarding her leukocytosis today. Blood cultures show no growth x 2 days. Urine cultures positive for E. coli sensitive to cefepime. 10/04: mental status is slightly improved. She wakes up and is oriented to self and to place, but not to time. states this is not unusual. She has not had any fevers and her leukocytosis is decreasing. remains very sleepy. Blood cultures show no growth after 1 day.. on admission: 78-year-old female with multiple medical problems presents to the emergency department with acute mental status changes white blood cell count of 30.2, afebrile heart rate in the low 100s and blood pressure as low as 97/57. She meets sepsis criteria. I am admitting her for sepsis with presumed source of urinary tract.Lactic acid is 1.2. I will not repeat this. On exam her mucous membranes are dry and she has not been eating and drinking well at home. She has a Diallo in place and her urinary output over the last 24 hours is approximately 50 cc/h over the last 24 hours as determined by calculations of urinary output provided by her . Qualifiers: Sepsis acute organ dysfunction status: with acute organ dysfunction S epsis type: sepsis due to unspecified organism Severe sepsis acute organ dysfunction type: encephalopathy Severe sepsis shock status: without septic shock Qualified Code(s): A41.9 - Sepsis, unspecified organism; R65.20 - Severe sepsis without septic shock; G93.41 - Metabolic encephalopathy (2) Generalized edema due to fluid overload: Impression: She had been off the Bumex for about a month. There was some difficulty with obtaining a prescription and then some difficulty with [facility]. She has been like this with his generalized edema for about a week prior to admission 10/08: I have placed her on a Lasix drip. I have given her daily albumin, in addition to diuretic treatment. I am not seeing significant diuresis. Her renal function is incrementally worse, but not declining sharply. I am adding Jardiance 10mg a day today. Hopefully this will help her with fluid balance 2 10/03/24 10/04/24 10/06/24 14:20 05:49 13:25 Creatinine 1.8 H 1.8 H 2.1 H 10/07/24 10/08/24 06:15 06:13 Creatinine 2.2 H 2.2 H .10/09: her urine output has not responded well. her chest xr looks worse (increasing pulm congestion). Peripheral edema is not any better. I have stopped Lasix drip, started Lasix 40mg IV BID, albumin 25g TID. Her oxygenation worsened as did her blood pressure as she proceeded through the day. I have transferred her to the intensive care unit and placed her on Levophed drip. She is satting 99% on 2 L via nasal cannula. I think with her worsening edema and anuric renal failure she will need to be transferred to a center with nephrology. I spoke to Pranav Hui MD at [facility] and she will be transferred to the intensive care unit there with nephrology consultation. She may require dialysis. Her consents to dialysis if needed. (3) Acute UTI: Impression: Urine culture done on the date of her initial emergency department visit shows E. coli. It is sensitive to cefepime. Which is her current antibiotic therapy. She is day 6 , with indwelling diallo, for urinary tract infection. We have NOT changed the diallo since admit, has been in place since 10/01. (4) Acute urinary retention: Impression: Diagnosed on 01 October at the time of her ED visit she is bringing in a Diallo which is in place from home. She was due to follow-up with urology in the outpatient environment. I will leave the Diallo in place. urine is dark and blood tinged. I stopped Eliquis 10/08 due to oozing around the central line, hematuria. I have considered lengthening duration of abx for URI given indwelling diallo, and extended duration to 7 days, but also I am continuing and broading coverage due to my concerns about her heel ulceration. . (5) Decubital ulcer: Impression: Please see my physical exam for documentation of the ulcerations. There is been a change in the left heel ulceration. There is some surrounding erythema and there is a foul smell coming from the wound. There is definitely concern for calcaneal involvement on exam. MRI ordered, and there is some question about if it can be completed. And lieu of MRI did obtain a noncontrast lower extremity CT. The read on this is pending at this time. Qualifiers: Pressure injury location: heel (6) Hyponatremia: Impression: This is likely due to the lasix drip. potassium remains steady. Sodium is worsening and I have added salt tabs, however she is not swallowing today. We are continuing to try to diurese and give albumin. 40 mg of Lasix IV twice daily with 25 g of albumin 3 times dailyLaboratory Tests 10/04/24 10/06/24 10/07/24 05:49 13:25 06:15 Sodium 133 L 131 L 130 L 10/08/24 10/09/24 06:13 07:55 Sodium 130 L 129 L 2 (7) Meningioma: Impression: By history. It appears this has not been followed up. We will need to keep this in mind and consider MRI while she is here is getting her out of the house to appointments is very very difficult. Brain MRI compared to head CT of shows right frontotemporal dural based enhancing mass measuring 3.1 cm consistent with meningioma there is mass effect on the adjacent brain parenchyma without associated edema. Mucosal thickening and near complete excessive location of the left maxillary sinus Age-related global volume loss and chronic microvascular ischemic change (8) Diastolic heart failure with preserved ejection fraction: Impression: Chest x-ray shows cardiomegaly with pulmonary vascular congestion. Her BNP was 238 at her emergency department visit on the . She has severe peripheral edema Review of records shows most recent echo done at [facility] in March 2024 showing ejection fraction of 55 to 60% with severe diastolic dysfunction. (9) Chronic kidney disease, stage 4 (severe): Impression: incremental worsening of renal status. See above. (10) Insulin dependent diabetes mellitus: Impression: Her A1c is 4.8%. I have changed her blood glucose testing to twice daily. I have discontinued her insulin and would recommend against continuing Trulicity in the outpatient environment. (11) Chronic atrial fibrillation: Impression: Home medication of Eliquis, renal dosing. No beta-blockers on the home med regimen. Although careful review of notes does show previously on metoprolol succinate 25 mg a day. (12) Do not resuscitate: Impression: Decision made not to resuscitate. Please see advance care planning note (13) Subclinical hypothyroidism: Impression: Elevated TSH with normal free T4. She does carry a previous diagnosis of subclinical hypothyroidism. Would defer further management to the outpatient environment. I have spent 65 minutes in the care of this patient today. This includes time [id number], review and ordering of diagnostic imaging and laboratory studies.. Monitoring the patient's signs symptoms, evaluation of medication effectiveness and patient's response to treatment.
--- NOTE | 2024-10-11 21:09 | MISCELLANEOUS PROVIDER NOTE ---
Miscellaneous Provider Note - Note: Notified by nursing staff that patient has passed. On arrival at bedside, patient is pulseless, apneic. 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 Pupils fixed. Discharge summary to follow Time of 10/11/2024 at 2105
--- NOTE | 2024-10-11 21:14 | Discharge Summary ---
Discharge Summary Admit Date: 10/03/24 Discharge Date: 10/11/24 Primary Care Provider: Marysol Padgett Code Status: Do Not Attempt Resuscitation DIAGNOSES Admission Diagnoses: Sepsis Acute UTI Acute urinary retention Generalized edema Meningioma Chronic diastolic heart failure with preserved EF Acute on chronic kidney failure Insulin-dependent type 2 diabetes mellitus History of chronic atrial fibrillation Decubital ulcer Discharge Diagnoses with Status of Each Condition: Patient is HPI History of Present Illness: 78-year-old female with multiple medical problems to include diabetes, bedbound status, hypertension, peripheral edema, ESBL Klebsiella urinary tract infection, GERD, COPD presents to the emergency department with mental status changes. She was seen in our emergency department 2 days ago on October 01 and diagnosed with urinary retention and urinary tract infection. A Hawthorne was placed and the plan was for her to follow-up with urology. She has a history of renal insufficiency, is followed by Dr. Arce of urology. In the records that I have available it is unclear what her baseline creatinine is. I see a note of a creatinine of 3.99 on 06/07/2024. In reviewing labs done at our facility I see a creatinine as high as 2.5 in December 2023. In any event she re presents to the emergency department for the second time in 48 hours with complaints of mental status changes and peripheral edema. Her Conor is her primary surrogate decision maker. He is also her primary caregiver. He has some assistance from [employer] coming into the home several times a week. When I questioned Conor about any sort of advance care planning or advance directives he states there is something scanned into the chart. I cannot locate this document at this time. At this point Nathaly would want to be resuscitated and on a ventilator but only on a ventilator for up to 5 days. We will have further advance care planning discussions as her admission progresses HOSPITAL COURSE Hospital Course: She was admitted to the hospital for sepsis. A wound was found on her foot which is believed to be the source of her infection. CT showed Concern for early osteomyelitis in her left heel. The decision was made for her to stay here and go on comfort care instead of transferring to an outside facility for orthopedics consultation and aggressive therapy. She was made comfort care on 10/09/2024. Her Levophed was stopped at that time. She at 9:05 PM on 10/11/2024 ALLERGIES Allergies Allergy/AdvReac Type Severity Reaction Status Date / Time erythromycin base Allergy Hives Verified 10/03/24 13:51 (Erythromycin Base) hydrocodone bitartrate * Allergy Hives Verified 10/03/24 13:51 (From Vicodin) levofloxacin (From Levaquin) Allergy Itching Verified 10/03/24 13:51 penicillin G Allergy Anaphylaxis Verified 10/03/24 13:51 propoxyphene HCl * (From Allergy Hives Verified 10/03/24 13:51 Darvon) adhesive tape AdvReac Intermediate Paper tape Verified 10/03/24 13:51 removes skin acetaminophen (From Vicodin) AdvReac Unknown Rash Verified 10/03/24 13:51 hydrocodone (From Vicodin) AdvReac Unknown Rash Verified 10/03/24 13:51 propoxyphene (From Darvon) AdvReac Unknown Rash Verified 10/03/24 13:51 latex AdvReac Itching Verified 10/03/24 13:51 MEDICATIONS Ambulatory Orders Medication Instructions Recorded Confirmed Diabetic Shoes 09/04/24 09/04/24 Permanent Disabled Placard 09/04/24 09/04/24 blood-glucose sensor (Dexcom G6 09/04/24 09/04/24 Sensor device) incontinence pad, liner, disp 09/04/24 09/04/24 (Bladder Control Pad Ultra Plus) acetaminophen 500 mg tablet 500 mg PO Q8H PRN fever or pain 09/19/24 10/03/24 albuterol sulfate 2.5 mg/3 mL 2.5 mg inhalation Q2H PRN 09/19/24 10/03/24 (0.083 %) solution for nebulization shortness of breath or wheezing cholecalciferol (vitamin D3) 25 25 mcg PO QDAY 09/19/24 10/03/24 mcg (1,000 unit) capsule coenzyme Q10 100 mg capsule (Co 100 mg PO QDAY 09/19/24 10/03/24 Q-10) colchicine 0.6 mg tablet 1.2 mg PO ONCE PRN GOUT FLARE 09/19/24 10/04/24 melatonin 3 mg tablet 6 mg PO HS PRN sleep 09/19/24 10/03/24 allopurinol 300 mg tablet 300 mg PO QDAY gout prevention #90 09/20/24 10/03/24 tabs apixaban 2.5 mg tablet 2.5 mg PO BID a- fib #180 tabs 09/20/24 10/03/24 atorvastatin 10 mg tablet (Lipitor) 10 mg PO QPM high cholesterol #90 09/20/24 10/03/24 tabs bumetanide 1 mg tablet 2 mg (2 x 1 mg) PO BID DIURETIC 09/20/24 10/03/24 #180 tabs cetirizine 10 mg chewable tablet 5 mg (1/2 x 10 mg) PO QDAY 09/20/24 10/03/24 ALLERGIES #45 tabs dulaglutide 1.5 mg/0.5 mL 1.5 mg (0.5 mL) subcut QWEEK #2 mL 09/20/24 10/03/24 subcutaneous pen injector (Trulicity) esomeprazole magnesium 40 mg 40 mg PO QDAY heartburn #90 caps 09/20/24 10/03/24 capsule,delayed release fluticasone propionate 50 1 spray intranasal QDAY allergic 09/20/24 10/03/24 mcg/actuation nasal rhinitis #16 grams spray,suspension gabapentin 300 mg capsule 900 mg (3 x 300 mg) PO BID PAIN 09/20/24 10/03/24 #540 caps insulin glargine 100 unit/mL (3 15 unit (0.15 mL) subcut QAM DM2 09/20/24 10/03/24 mL) subcutaneous pen (Lantus #15 mL Solostar U-100 Insulin) metolazone 5 mg tablet 5 mg PO .COMPLEX CONGESTIVE HEART 09/20/24 10/03/24 FAILURE #32 tabs midodrine 10 mg tablet 10 mg PO TID for low BP #270 tabs 09/20/24 10/03/24 pen needle, diabetic 31 gauge x #100 ea 09/20/24 09/20/24 5/16" potassium chloride 10 mEq 10 meq PO QDAY potassium 09/20/24 10/03/24 tablet,extended release (Klor-Con) supplement #90 tabs cephalexin 500 mg capsule 500 mg PO TID 7 days #21 caps 10/01/24 10/03/24 trazodone 50 mg tablet 50 mg PO QPM depression and 10/04/24 10/04/24 insomnia empagliflozin 10 mg tablet 10 mg PO DAILY #30 tabs 10/08/24 (Jardiance) PHYSICAL EXAM AT DISCHARGE General Appearance: positive Other (Patient is ) LABS 10/10/24 09:05 10/10/24 09:05 TIME SPENT Time Spent in Discharge (Minutes): 15 Discharge Plan Discharge Patient Disposition: 02 Transfer Acute Care Hosp Condition: Serious Prescriptions: New Jardiance 10 mg tablet 10 mg PO DAILY Qty: 30 2RF No Action atorvastatin [Lipitor] 10 mg tablet 10 mg PO QPM Qty: 90 3RF gabapentin 300 mg capsule 900 mg PO BID Qty: 540 3RF cephalexin 500 mg capsule 500 mg PO TID 7 Days Qty: 21 0RF trazodone 50 mg tablet 50 mg PO QPM bumetanide 1 mg tablet 2 mg PO BID Qty: 180 3RF (DME) Bladder Control Pad Ultra Plus Pad See Rx Instructions .ROUTE Rx Instructions: As directed (DME) Dexcom G6 Sensor Device See Rx Instructions .ROUTE Rx Instructions: As directed (DME) Diabetic Shoes Unit See Rx Instructions .ROUTE Rx Instructions: As directed (DME) Permanent Disabled Placard Misc See Rx Instructions .ROUTE Rx Instructions: As directed acetaminophen 500 mg tablet 500 mg PO Q8H PRN (Reason: fever or pain) coenzyme Q10 [Co Q-10] 100 mg capsule 100 mg PO QDAY colchicine 0.6 mg tablet 1.2 mg PO ONCE PRN (Reason: GOUT FLARE) Rx Instructions: FOLLOWED BY 0.6MG 1 HOUR AFTER (MAX 1.8MG PER DAY) melatonin 3 mg tablet 6 mg PO HS PRN (Reason: sleep) cholecalciferol (vitamin D3) 25 mcg (1,000 unit) capsule 25 mcg PO QDAY albuterol sulfate 2.5 mg /3 mL (0.083 %) solution for nebulization 2.5 mg inhalation Q2H PRN (Reason: shortness of breath or wheezing) esomeprazole magnesium 40 mg capsule,delayed release(DR/EC) 40 mg PO QDAY Qty: 90 3RF potassium chloride [Klor-Con 10] 10 mEq tablet extended release 10 meq PO QDAY Qty: 90 3RF fluticasone propionate 50 mcg/actuation spray,suspension 1 spray intranasal QDAY Qty: 16 6RF Rx Instructions: administer into each nostril allopurinol 300 mg tablet 300 mg PO QDAY Qty: 90 1RF apixaban 2.5 mg tablet 2.5 mg PO BID Qty: 180 3RF midodrine 10 mg tablet 10 mg PO TID Qty: 270 3RF Rx Instructions: do not give last dose of day after 6PM or within 4 hrs of bedtime HOLD FOR SYSTOLIC BP > 165 cetirizine 10 mg tablet,chewable 5 mg PO QDAY Qty: 45 3RF metolazone 5 mg tablet 5 mg PO .COMPLEX Qty: 32 3RF Rx Instructions: 5 mg orally every Tues and Sat; (DME) pen needle, diabetic 31 gauge x 5/16" needle See Rx Instructions .Route Qty: 100 3RF Rx Instructions: USE WITH INSULIN PEN ONCE DAILY Trulicity 1.5 mg/0.5 mL pen injector 1.5 mg subcut QWEEK Qty: 2 3RF insulin glargine [Lantus Solostar U-100 Insulin] 100 unit/mL (3 mL) insulin pen 15 unit subcut QAM Qty: 15 3RF Print Language: Ghanaian
--- NOTE | 2024-10-11 21:25 | MISCELLANEOUS PROVIDER NOTE ---
Miscellaneous Provider Note - Note: Attempted to notify that patient has passed. Call cannot be completed. Instructed nursing staff to find a better number.
== END 2024-10-11 21:05 | disposition expired | DRG 871 ==
LOC: ED 13:31 → MS2 19:45 → ICU 10-09 17:23
PROVIDERS: ADMIT Physician Assistant Medical; ATTEND Physician Assistant Medical
DX: N17.9 Acute kidney failure, unspecified; Z66 Do not resuscitate; G93.40 Encephalopathy, unspecified; E03.8 Other specified hypothyroidism; E11.22 Type 2 diabetes mellitus with diabetic chronic kidney disease; J44.9 Chronic obstructive pulmonary disease, unspecified; B96.89 Other specified bacterial agents as the cause of diseases classified elsewhere; R65.20 Severe sepsis without septic shock; E87.1 Hypo-osmolality and hyponatremia; I13.0 Hypertensive heart and chronic kidney disease with heart failure and stage 1 through stage 4 chronic kidney disease, or unspecified chronic kidney disease; I50.9 Heart failure, unspecified; I48.20 Chronic atrial fibrillation, unspecified; A41.9 Sepsis, unspecified organism; R60.1 Generalized edema; S40.8 Other superficial injuries of upper arm; N39.0 Urinary tract infection, site not specified; Z74.01 Bed confinement status; L89.620 Pressure ulcer of left heel, unstageable; R58 Hemorrhage, not elsewhere classified; I50.30 Unspecified diastolic (congestive) heart failure; B96.20 Unspecified Escherichia coli [E. coli] as the cause of diseases classified elsewhere; Z79.85 Long-term (current) use of injectable non-insulin antidiabetic drugs; G93.41 Metabolic encephalopathy; N18.4 Chronic kidney disease, stage 4 (severe); R33.9 Retention of urine, unspecified; Z79.84 Long term (current) use of oral hypoglycemic drugs; Z79.4 Long term (current) use of insulin; I11.0 Hypertensive heart disease with heart failure; S40.821D Blister (nonthermal) of right upper arm, subsequent encounter; Z51.5 Encounter for palliative care